=== PATIENT | female | born 1935 | race Caucasian/White ===

== ENCOUNTER 2016-11-08 08:54 | Inpatient (IN) | payer MEDICARE, BC ==
[2016-11-08] MEDS ORDERED: Tuberculin, PPD 5 Units/0.1 ML 1 ML MDV IDERM ONE (10:09)
[2016-11-11] MEDS ORDERED: Ibuprofen 400 MG Tab PO PRN (15:13)
[2016-11-11] MEDS ORDERED: Polyvinyl Alcohol 1.4% Ophth Soln 15 ML Bottle EYEBOTH PRN (15:17)
--- NOTE | 2016-11-11 15:23 | PCM.HP ---
H&P History of Present Illness - General Date of Service: 11/11/16 Admit Problem/Dx: Admission Diagnosis/Problem Admission Diagnosis/Problem Weakness Right kne arthroplasty. Post op Swing bed admission. Source of Information: Patient History Limitations: Reports: No limitations - History of Present Illness Initial Comments - Free Text/Narative: This is a a pleasant 81yo F here for swing bed admission for post right knee arthroplasty. Patient has been doing very well and has no concerns. Denies any concerns of wound healing or physical rehabilitation. Location: Reports: lower extremity, right Worsens with: Reports: Movement Associated Symptoms: Reports: denies other symptoms Right Knee Pain Score (Numeric/FACES): 4 - Related Data Allergies/Adverse Reactions: Allergies Allergy/AdvReac Type Severity Reaction Status Date / Time No Known Allergies Allergy Verified 11/11/16 16:15 Home Medications: Home Meds Acetaminophen [Tylenol Extra Strength] 500 mg PO QID 10/11/16 [History] Cholecalciferol (Vitamin D3) [Vitamin D3] 2,000 unit PO DAILY 10/11/16 [History] Latanoprost [Xalatan 0.005% Ophth Soln] 1 drop EYEBOTH BEDTIME 10/11/16 [History ] Lisinopril/Hydrochlorothiazide [Lisinopril-Hctz 20-12.5 mg Tab] 1 each PO DAILY 10/11/16 [History] Loratadine [Claritin] 10 mg PO BID 10/11/16 [History] Mirabegron [Myrbetriq] 50 mg PO DAILY 10/11/16 [History] [place]-3/DHA/Epa/Fish Oil [[place]-3 Fish Oil 1,000 MG Sfgl] 1,000 mg PO DAILY 10/25 [History] Phytonadione [Vitamin K] 100 mcg PO ASDIRECTED 10/11/16 [History] Simvastatin [Zocor] 40 mg PO BEDTIME 10/11/16 [History] Turmeric Root Extract [Turmeric] 500 mg PO DAILY 10/11/16 [History] Past Medical History HEENT History: Reports: Glaucoma, Hard of hearing, Impaired vision Cardiovascular History: Reports: Hypertension Respiratory History: Reports: None Gastrointestinal History: Reports: None Genitourinary History: Reports: Urinary incontinence Other OB/BYN History: parity: 3, gravity: 3. vaginal deliveries Musculoskeletal History: Reports: Back pain, chronic, Osteoarthritis Neurological History: Reports: None Endocrine/Metabolic History: Reports: None Oncologic (Cancer) History: Reports: None - Past Surgical History Other Musculoskeletal Surgeries/Procedures:: left knee TKR. right knee pain Social & Family History - Tobacco Use Second Hand Smoke Exposure: No - Recreational Drug Use Recreational Drug Use: No H&P Review of Systems - Review of Systems: Review Of Systems: See Below General: Reports: no symptoms HEENT: Reports: no symptoms Pulmonary: Reports: No Symptoms Cardiovascular: Reports: no symptoms Gastrointestinal: Reports: No symptoms Genitourinary: Reports: no symptoms Musculoskeletal: Reports: joint pain Skin: Reports: no symptoms Psychiatric: Reports: no symptoms Exam - Exam Exam: See Below - Exam General: alert, oriented HEENT: PERRLA, Conjunctiva clear Neck: supple, trachea midline Lungs: Clear to auscultation, Normal respiratory effort Cardiovascular: regular rate, regular rhythm Abdomen: normal bowel sounds, soft Extremities: normal inspection, other (right knee tenderness post op baseline) *Q Meaningful Use (ADM) - VTE *Q VTE Criteria *Q: - Stroke *Q Stroke Criteria *Q: - AMI *Q AMI Criteria *Q: - Problem List (1) History of arthroplasty of right knee SNOMED Code(s): 282065807, 578625050 ICD Code: Z96.651 - PRESENCE OF RIGHT ARTIFICIAL KNEE JOINT Status: Acute Priority: High Current Visit: Yes Problem List Initiated/Reviewed/Updated: Yes Orders Last 24hrs: Active Orders 24 hr Category Date Time Status Acetaminophen [Tylenol] Med 11/11/16 15:11 Active 325 - 650 mg PO Q4H PRN Aspirin [Halfprin] Med 11/12/16 08:00 Active 162 mg PO DAILY Cholecalciferol (Vitamin D3) [Vitamin D3] Med 11/12/16 08:00 Active 2,000 unit PO DAILY Docusate Sodium [Colace] Med 11/11/16 20:00 Active 200 mg PO BID Fish Oil/[place]-3 Fatty Acids [Fish Oil] Med 11/12/16 08:00 Active 1 gm PO DAILY Hydrochlorothiazide Med 11/12/16 08:00 Active 12.5 mg PO DAILY Ibuprofen [Motrin] Med 11/11/16 15:13 Active 400 mg PO Q8H PRN Latanoprost [Xalatan 0.005% Ophth Soln] Med 11/11/16 20:00 Active 0 - 1 ml EYEBOTH BEDTIME Lisinopril [Prinivil] Med 11/12/16 08:00 Active 20 mg PO DAILY Pantoprazole [ProTONIX] Med 11/12/16 08:00 Active 40 mg PO DAILY Phytonadione [Vitamin K] Med 11/12/16 08:00 Active 100 mcg PO DAILY Polyethylene Glycol 3350 [MiraLAX] Med 11/12/16 08:00 Active 17 gm PO DAILY Polyvinyl Alcohol [LiquiTears 1.4% Ophth Soln] Med 11/11/16 15:17 Active 0 - 1 ml EYEBOTH Q4H PRN Sennosides [Senna] Med 11/11/16 20:00 Active 8.6 mg PO BID Simvastatin [Zocor] Med 11/11/16 20:00 Active 40 mg PO BEDTIME traMADol [Ultram] Med 11/11/16 15:19 Active 50 mg PO Q6H PRN Medication Orders Acetaminophen (Tylenol) 325 - 650 mg PO Q4H PRN PRN Reason: MILD PAIN Artificial Tears (Liquitears 1.4% Ophth Soln) 0 - 1 ml EYEBOTH Q4H PRN PRN Reason: DRY EYES Aspirin (Halfprin) 162 mg PO DAILY [facility] Cholecalciferol (Vitamin D3) 2,000 unit PO DAILY [facility] Docusate Sodium (Colace) 200 mg PO BID [facility] Fish Oil (Fish Oil) 1 gm PO DAILY [facility] Hydrochlorothiazide (Hydrochlorothiazide) 12.5 mg PO DAILY [facility] Ibuprofen (Motrin) 400 mg PO Q8H PRN PRN Reason: MODERATE PAIN Latanoprost (Xalatan 0.005% Ophth Soln) 0 - 1 ml EYEBOTH BEDTIME [facility] Lisinopril (Prinivil) 20 mg PO DAILY [facility] Pantoprazole Sodium (Protonix) 40 mg PO DAILY [facility] Phytonadione (Vitamin K) 100 mcg PO DAILY [facility] Polyethylene Glycol (Miralax) 17 gm PO DAILY [facility] Senna (Senna) 8.6 mg PO BID [facility] Simvastatin (Zocor) 40 mg PO BEDTIME [facility] Tramadol HCl (Ultram) 50 mg PO Q6H PRN PRN Reason: MODERATE PAIN Assessment/Plan Comment:: Patient admitted to swing bed for post op right knee arthroplasty rehabilitation and management.
[2016-11-11] MEDS: Acetaminophen 325 MG Tab PO PRN (18:10)
[2016-11-11] MEDS: Sennosides 8.6 MG Tab PO SCH (19:46)
[2016-11-11] MEDS: Docusate Sodium 100 MG Cap PO SCH (19:46)
[2016-11-11] MEDS: Simvastatin 40 MG Tab PO SCH (19:47)
[2016-11-11] MEDS: Latanoprost 0.005% Ophth Soln 2.5 ML Bottle EYEBOTH SCH (19:47)
[2016-11-11] MEDS: traMADol 50 MG Tab PO PRN (22:05)
[2016-11-12] MEDS: Cholecalciferol (Vitamin D3) 2,000 Unit Cap PO SCH (07:51)
[2016-11-12] MEDS: Docusate Sodium 100 MG Cap PO SCH ×2 (07:51→20:04)
[2016-11-12] MEDS: Aspirin 81 MG Tab.EC PO SCH (07:51)
[2016-11-12] MEDS: Lisinopril 20 MG Tab PO SCH (07:52)
[2016-11-12] MEDS: Hydrochlorothiazide 12.5 MG Cap PO SCH (07:52)
[2016-11-12] MEDS: Sennosides 8.6 MG Tab PO SCH ×2 (07:52→20:04)
[2016-11-12] MEDS: Pantoprazole 40 MG Tab.CR PO SCH (07:52)
[2016-11-12] MEDS: Polyethylene Glycol 3350 Powder 17 GM Packet PO SCH (07:53)
[2016-11-12] MEDS: Fish Oil/Omega-3 Fatty Acids 1 Gm Cap PO SCH (07:57)
[2016-11-12] MEDS ORDERED: Phytonadione 100 MCG Tab PO SCH (08:00)
[2016-11-12] MEDS: traMADol 50 MG Tab PO PRN ×3 (08:02→20:03)
--- NOTE | 2016-11-12 11:39 | US ---
DATE OF SERVICE: 11/12/2016 CLINICAL DATA: Thyroid asymmetry. THYROID ULTRASOUND No priors. Real-time examination fo the thyroid was performed. The right lobe measures 5.0 x 1.8 x 1.9 cm. The left lobe measures 4.6 x 1.2 x 1.2 cm. Both lobes have markedly heterogeneous echotexture, right greater than left, and contain multiple heterogeneous hypoechoic nodules. The findings are consistent with a multinodular goiter. No other significant findings. [id number] [facility]
[2016-11-12] MEDS: Latanoprost 0.005% Ophth Soln 2.5 ML Bottle EYEBOTH SCH (19:47)
[2016-11-12] MEDS: Simvastatin 40 MG Tab PO SCH (20:04)
[2016-11-13] MEDS: traMADol 50 MG Tab PO PRN ×3 (02:01→16:07)
[2016-11-13] MEDS: Fish Oil/Omega-3 Fatty Acids 1 Gm Cap PO SCH (07:58)
[2016-11-13] MEDS: Pantoprazole 40 MG Tab.CR PO SCH (07:59)
[2016-11-13] MEDS: Polyethylene Glycol 3350 Powder 17 GM Packet PO SCH (07:59)
[2016-11-13] MEDS: Cholecalciferol (Vitamin D3) 2,000 Unit Cap PO SCH (07:59)
[2016-11-13] MEDS: Hydrochlorothiazide 12.5 MG Cap PO SCH (07:59)
[2016-11-13] MEDS: Sennosides 8.6 MG Tab PO SCH ×2 (07:59→19:51)
[2016-11-13] MEDS: Aspirin 81 MG Tab.EC PO SCH (07:59)
[2016-11-13] MEDS: Lisinopril 20 MG Tab PO SCH (07:59)
[2016-11-13] MEDS: Docusate Sodium 100 MG Cap PO SCH ×2 (08:00→19:51)
[2016-11-13] MEDS: Simvastatin 40 MG Tab PO SCH (19:51)
[2016-11-13] MEDS: Latanoprost 0.005% Ophth Soln 2.5 ML Bottle EYEBOTH SCH (19:52)
[2016-11-14] MEDS: traMADol 50 MG Tab PO PRN ×3 (03:22→14:24)
[2016-11-14] MEDS: Aspirin 81 MG Tab.EC PO SCH (08:40)
[2016-11-14] MEDS: Docusate Sodium 100 MG Cap PO SCH ×2 (08:40→20:47)
[2016-11-14] MEDS: Pantoprazole 40 MG Tab.CR PO SCH (08:41)
[2016-11-14] MEDS: Hydrochlorothiazide 12.5 MG Cap PO SCH (08:41)
[2016-11-14] MEDS: Fish Oil/Omega-3 Fatty Acids 1 Gm Cap PO SCH (08:41)
[2016-11-14] MEDS: Lisinopril 20 MG Tab PO SCH (08:42)
[2016-11-14] MEDS: Cholecalciferol (Vitamin D3) 2,000 Unit Cap PO SCH (08:42)
[2016-11-14] MEDS: Sennosides 8.6 MG Tab PO SCH ×2 (08:45→20:47)
[2016-11-14] MEDS: Polyethylene Glycol 3350 Powder 17 GM Packet PO SCH (08:46)
[2016-11-14] MEDS: Acetaminophen 325 MG Tab PO PRN ×2 (16:06→20:50)
[2016-11-14] MEDS: Simvastatin 40 MG Tab PO SCH (20:47)
[2016-11-14] MEDS: Latanoprost 0.005% Ophth Soln 2.5 ML Bottle EYEBOTH SCH (20:51)
[2016-11-15] MEDS: traMADol 50 MG Tab PO PRN ×2 (02:32→20:19)
[2016-11-15] MEDS: Fish Oil/Omega-3 Fatty Acids 1 Gm Cap PO SCH (08:19)
[2016-11-15] MEDS: Pantoprazole 40 MG Tab.CR PO SCH (08:20)
[2016-11-15] MEDS: Sennosides 8.6 MG Tab PO SCH ×2 (08:20→20:20)
[2016-11-15] MEDS: Docusate Sodium 100 MG Cap PO SCH ×2 (08:20→20:20)
[2016-11-15] MEDS: Hydrochlorothiazide 12.5 MG Cap PO SCH (08:21)
[2016-11-15] MEDS: Aspirin 81 MG Tab.EC PO SCH (08:21)
[2016-11-15] MEDS: Cholecalciferol (Vitamin D3) 2,000 Unit Cap PO SCH (08:22)
[2016-11-15] MEDS: Lisinopril 20 MG Tab PO SCH (08:22)
[2016-11-15] MEDS: Polyethylene Glycol 3350 Powder 17 GM Packet PO SCH (08:27)
[2016-11-15] MEDS: Acetaminophen 325 MG Tab PO PRN (08:32)
[2016-11-15] MEDS ORDERED: Tuberculin, PPD 5 Units/0.1 ML 1 ML MDV IDERM SCH (10:00)
[2016-11-15] MEDS ORDERED: Tuberculin, PPD 5 Units/0.1 ML 1 ML MDV IDERM ONE (10:00)
[2016-11-15] MEDS: Simvastatin 40 MG Tab PO SCH (20:18)
[2016-11-16] MEDS: Latanoprost 0.005% Ophth Soln 2.5 ML Bottle EYEBOTH SCH ×2 (07:15→20:20)
[2016-11-16] MEDS: Aspirin 81 MG Tab.EC PO SCH (08:05)
[2016-11-16] MEDS: Docusate Sodium 100 MG Cap PO SCH ×2 (08:05→20:21)
[2016-11-16] MEDS: Fish Oil/Omega-3 Fatty Acids 1 Gm Cap PO SCH (08:05)
[2016-11-16] MEDS: Lisinopril 20 MG Tab PO SCH (08:06)
[2016-11-16] MEDS: Hydrochlorothiazide 12.5 MG Cap PO SCH (08:06)
[2016-11-16] MEDS: Pantoprazole 40 MG Tab.CR PO SCH (08:07)
[2016-11-16] MEDS: Sennosides 8.6 MG Tab PO SCH ×2 (08:07→20:21)
[2016-11-16] MEDS: Cholecalciferol (Vitamin D3) 2,000 Unit Cap PO SCH (08:08)
[2016-11-16] MEDS: Polyethylene Glycol 3350 Powder 17 GM Packet PO SCH (08:11)
[2016-11-16] MEDS: Acetaminophen 325 MG Tab PO PRN ×2 (08:16→16:42)
[2016-11-16] MEDS: traMADol 50 MG Tab PO PRN (20:20)
[2016-11-16] MEDS: Simvastatin 40 MG Tab PO SCH (20:21)
[2016-11-17] MEDS: Aspirin 81 MG Tab.EC PO SCH (07:45)
[2016-11-17] MEDS: Polyethylene Glycol 3350 Powder 17 GM Packet PO SCH (07:45)
[2016-11-17] MEDS: Pantoprazole 40 MG Tab.CR PO SCH (07:45)
[2016-11-17] MEDS: Cholecalciferol (Vitamin D3) 2,000 Unit Cap PO SCH (07:45)
[2016-11-17] MEDS: Sennosides 8.6 MG Tab PO SCH ×2 (07:45→20:26)
[2016-11-17] MEDS: Docusate Sodium 100 MG Cap PO SCH ×2 (07:45→20:26)
[2016-11-17] MEDS: Fish Oil/Omega-3 Fatty Acids 1 Gm Cap PO SCH (07:46)
[2016-11-17] MEDS: Lisinopril 20 MG Tab PO SCH (07:46)
[2016-11-17] MEDS: Hydrochlorothiazide 12.5 MG Cap PO SCH (07:46)
[2016-11-17] MEDS: traMADol 50 MG Tab PO PRN ×2 (15:25→20:32)
[2016-11-17] MEDS: Latanoprost 0.005% Ophth Soln 2.5 ML Bottle EYEBOTH SCH (20:31)
[2016-11-17] MEDS: Simvastatin 40 MG Tab PO SCH (20:32)
[2016-11-18] MEDS: Polyethylene Glycol 3350 Powder 17 GM Packet PO SCH (07:54)
[2016-11-18] MEDS: Fish Oil/Omega-3 Fatty Acids 1 Gm Cap PO SCH (07:55)
[2016-11-18] MEDS: Docusate Sodium 100 MG Cap PO SCH ×2 (07:55→20:26)
[2016-11-18] MEDS: Hydrochlorothiazide 12.5 MG Cap PO SCH (07:55)
[2016-11-18] MEDS: Lisinopril 20 MG Tab PO SCH (07:55)
[2016-11-18] MEDS: Pantoprazole 40 MG Tab.CR PO SCH (07:55)
[2016-11-18] MEDS: Sennosides 8.6 MG Tab PO SCH ×2 (07:55→20:26)
[2016-11-18] MEDS: Aspirin 81 MG Tab.EC PO SCH (07:55)
[2016-11-18] MEDS: Cholecalciferol (Vitamin D3) 2,000 Unit Cap PO SCH (07:55)
[2016-11-18] MEDS: traMADol 50 MG Tab PO PRN ×2 (10:11→20:25)
--- NOTE | 2016-11-18 13:49 | PCM.PN ---
- General Info Date of Service: 11/18/16 Subjective Update: Patient has been doing well. She requests that her ortho appointment be scheduled later and would like her ziggy checked and removed here in swingbed. Patient states she improves gradually daily with improving strength and mobility. Functional Status: Reports: pain controlled, tolerating diet, ambulating - Review of Systems General: Reports: Weakness HEENT: Reports: no symptoms Pulmonary: Reports: no symptoms Cardiovascular: Reports: No Symptoms Gastrointestinal: Reports: No symptoms Genitourinary: Reports: no symptoms Musculoskeletal: Reports: leg pain, joint pain Skin: Reports: no symptoms Neurological: Reports: No Symptoms Psychiatric: Reports: no symptoms - Patient Data Vitals - most recent: Last Vital Signs Temp 36.6 C 11/18/16 08:00 Pulse 77 11/18/16 08:00 Resp 18 11/18/16 08:00 BP 137/63 11/18/16 08:00 Pulse Ox 97 11/18/16 08:00 Weight - most recent: 82.1 kg Med Orders - Current: Current Medications Acetaminophen (Tylenol) 325 - 650 mg PO Q4H PRN PRN Reason: MILD PAIN Last Admin: 11/16/16 16:42 Dose: 650 mg Artificial Tears (Liquitears 1.4% Ophth Soln) 0 - 1 ml EYEBOTH Q4H PRN PRN Reason: DRY EYES Aspirin (Halfprin) 162 mg PO DAILY [facility] Last Admin: 11/18/16 07:55 Dose: 162 mg Cholecalciferol (Vitamin D3) 2,000 unit PO DAILY [facility] Last Admin: 11/18/16 07:55 Dose: 2,000 unit Docusate Sodium (Colace) 200 mg PO BID [facility]US Last Admin: 11/18/16 07:55 Dose: 200 mg Fish Oil (Fish Oil) 1 gm PO DAILY [facility]ESUS Last Admin: 11/18/16 07:55 Dose: 1 gm Hydrochlorothiazide (Hydrochlorothiazide) 12.5 mg PO DAILY [facility] Last Admin: 11/18/16 07:55 Dose: 12.5 mg Ibuprofen (Motrin) 400 mg PO Q8H PRN PRN Reason: MODERATE PAIN Latanoprost (Xalatan 0.005% Ophth Soln) 0 - 1 ml EYEBOTH BEDTIME [facility] Last Admin: 11/17/16 20:31 Dose: 1 drop Lisinopril (Prinivil) 20 mg PO DAILY [facility] Last Admin: 11/18/16 07:55 Dose: 20 mg Pantoprazole Sodium (Protonix) 40 mg PO DAILY [facility] Last Admin: 11/18/16 07:55 Dose: 40 mg Polyethylene Glycol (Miralax) 17 gm PO DAILY [facility] Last Admin: 11/18/16 07:54 Dose: 17 gm Senna (Senna) 8.6 mg PO BID [facility] Last Admin: 11/18/16 07:55 Dose: 8.6 mg Simvastatin (Zocor) 40 mg PO BEDTIME [facility] Last Admin: 11/17/16 20:32 Dose: 40 mg Tramadol HCl (Ultram) 50 mg PO Q6H PRN PRN Reason: MODERATE PAIN Last Admin: 11/18/16 10:11 Dose: 50 mg Discontinued Medications Phytonadione (Vitamin K) 100 mcg PO DAILY [facility] Last Admin: 11/12/16 08:04 Dose: Not Given Tuberculin PPD (Aplisol) 5 unit IDERM ONETIME ONE Stop: 11/15/16 10:01 Tuberculin PPD (Aplisol) 5 unit IDERM ASDIRECTED [facility] Stop: 11/15/16 11:00 Last Admin: 11/15/16 10:59 Dose: 5 unit - Exam General: alert, oriented, cooperative HEENT: Pupils equal, Pupils reactive, EOMI Lungs: Clear to auscultation, Normal respiratory effort Cardiovascular: Regular Rate, Regular Rhythm Abdomen: bowel sounds present, soft, no tenderness Back Exam: normal inspection, full range of motion Extremities: edema (1+) Peripheral Pulses: 2+: dorsalis pedis (L), dorsalis pedis (R) Skin: warm, dry, intact Wound/Incisions: healing well, dressing dry and intact - Problem List & Annotations (1) History of arthroplasty of right knee SNOMED Code(s): 661992358, 935921581 Code(s): Z96.651 - PRESENCE OF RIGHT ARTIFICIAL KNEE JOINT Status: Acute Priority: High Current Visit: Yes - Problem List Review Problem List Initiated/Reviewed/Updated: Yes - Plan Plan:: Patient admitted to swing bed for post op right knee arthroplasty rehabilitation and management. 11/18/16 Patient to continue with PT/OT. Ortho ok for ziggy to be removed here in swingbed. F/u on 18th with Jose A. Patient agreeable with plan of care.
[2016-11-18] MEDS: Latanoprost 0.005% Ophth Soln 2.5 ML Bottle EYEBOTH SCH (20:25)
[2016-11-18] MEDS: Simvastatin 40 MG Tab PO SCH (20:25)
[2016-11-19] MEDS: Acetaminophen 325 MG Tab PO PRN (05:52)
[2016-11-19] MEDS: Polyethylene Glycol 3350 Powder 17 GM Packet PO SCH (07:59)
[2016-11-19] MEDS: Docusate Sodium 100 MG Cap PO SCH ×2 (07:59→20:50)
[2016-11-19] MEDS: Pantoprazole 40 MG Tab.CR PO SCH (08:00)
[2016-11-19] MEDS: Hydrochlorothiazide 12.5 MG Cap PO SCH (08:00)
[2016-11-19] MEDS: Fish Oil/Omega-3 Fatty Acids 1 Gm Cap PO SCH (08:00)
[2016-11-19] MEDS: Cholecalciferol (Vitamin D3) 2,000 Unit Cap PO SCH (08:00)
[2016-11-19] MEDS: Sennosides 8.6 MG Tab PO SCH ×2 (08:00→20:50)
[2016-11-19] MEDS: Lisinopril 20 MG Tab PO SCH (08:00)
[2016-11-19] MEDS: Aspirin 81 MG Tab.EC PO SCH (08:00)
[2016-11-19] MEDS: traMADol 50 MG Tab PO PRN ×2 (16:41→22:41)
[2016-11-19] MEDS: Simvastatin 40 MG Tab PO SCH (20:50)
[2016-11-19] MEDS: Latanoprost 0.005% Ophth Soln 2.5 ML Bottle EYEBOTH SCH (20:51)
[2016-11-20] MEDS: traMADol 50 MG Tab PO PRN ×2 (04:24→20:07)
[2016-11-20] MEDS: Docusate Sodium 100 MG Cap PO SCH ×2 (08:19→20:08)
[2016-11-20] MEDS: Aspirin 81 MG Tab.EC PO SCH (08:22)
[2016-11-20] MEDS: Fish Oil/Omega-3 Fatty Acids 1 Gm Cap PO SCH (08:22)
[2016-11-20] MEDS: Polyethylene Glycol 3350 Powder 17 GM Packet PO SCH (08:23)
[2016-11-20] MEDS: Hydrochlorothiazide 12.5 MG Cap PO SCH (08:23)
[2016-11-20] MEDS: Sennosides 8.6 MG Tab PO SCH ×2 (08:24→20:09)
[2016-11-20] MEDS: Lisinopril 20 MG Tab PO SCH (08:24)
[2016-11-20] MEDS: Pantoprazole 40 MG Tab.CR PO SCH (08:24)
[2016-11-20] MEDS: Cholecalciferol (Vitamin D3) 2,000 Unit Cap PO SCH (08:25)
[2016-11-20] MEDS: Acetaminophen 325 MG Tab PO PRN (11:54)
[2016-11-20] MEDS: Latanoprost 0.005% Ophth Soln 2.5 ML Bottle EYEBOTH SCH (20:09)
[2016-11-20] MEDS: Simvastatin 40 MG Tab PO SCH (20:09)
[2016-11-21] MEDS: Polyethylene Glycol 3350 Powder 17 GM Packet PO SCH (08:17)
[2016-11-21] MEDS: Cholecalciferol (Vitamin D3) 2,000 Unit Cap PO SCH (08:17)
[2016-11-21] MEDS: Fish Oil/Omega-3 Fatty Acids 1 Gm Cap PO SCH (08:18)
[2016-11-21] MEDS: Docusate Sodium 100 MG Cap PO SCH ×2 (08:20→21:27)
[2016-11-21] MEDS: Aspirin 81 MG Tab.EC PO SCH (08:20)
[2016-11-21] MEDS: Hydrochlorothiazide 12.5 MG Cap PO SCH (08:20)
[2016-11-21] MEDS: Lisinopril 20 MG Tab PO SCH (08:21)
[2016-11-21] MEDS: Pantoprazole 40 MG Tab.CR PO SCH (08:21)
[2016-11-21] MEDS: Sennosides 8.6 MG Tab PO SCH ×2 (08:21→21:26)
[2016-11-21] MEDS: traMADol 50 MG Tab PO PRN (08:29)
[2016-11-21] MEDS: Acetaminophen 325 MG Tab PO PRN ×2 (15:09→21:24)
[2016-11-21] MEDS: Simvastatin 40 MG Tab PO SCH (21:23)
[2016-11-21] MEDS: Latanoprost 0.005% Ophth Soln 2.5 ML Bottle EYEBOTH SCH ×2 (21:26→21:50)
[2016-11-22] MEDS: Cholecalciferol (Vitamin D3) 2,000 Unit Cap PO SCH (07:48)
[2016-11-22] MEDS: Pantoprazole 40 MG Tab.CR PO SCH (07:48)
[2016-11-22] MEDS: Fish Oil/Omega-3 Fatty Acids 1 Gm Cap PO SCH (07:48)
[2016-11-22] MEDS: Hydrochlorothiazide 12.5 MG Cap PO SCH (07:48)
[2016-11-22] MEDS: Lisinopril 20 MG Tab PO SCH (07:48)
[2016-11-22] MEDS: Aspirin 81 MG Tab.EC PO SCH (07:48)
[2016-11-22] MEDS: Polyethylene Glycol 3350 Powder 17 GM Packet PO SCH (07:49)
[2016-11-22] MEDS: Sennosides 8.6 MG Tab PO SCH (07:49)
[2016-11-22] MEDS: Docusate Sodium 100 MG Cap PO SCH (07:49)
[2016-11-22] MEDS: traMADol 50 MG Tab PO PRN (12:27)
--- NOTE | 2016-11-22 17:55 | PCM.DCSUM1 ---
Discharge Summary - Discharge Data Discharge Date: 11/22/16 Discharge Disposition: Home, Self-Care 01 Condition: Good - Discharge Diagnosis/Problem(s) (1) History of arthroplasty of right knee SNOMED Code(s): 291032204, 838069937 ICD Code: Z96.651 - PRESENCE OF RIGHT ARTIFICIAL KNEE JOINT Status: Acute Priority: High - Patient Summary/Data Consults: Consultations 11/08/16 10:09 Consult to Spooler Operator Automatic [CONS] Routine Comment: Physician Instructions: Quantity: OT Evaluation and Treatment [CONS] Routine Please Evaluate and Treat. OT Reason for Consult: ADL's This query below is only for informational purposes and is not editable. Admission Diagnosis/Problem: Weakness PT Evaluation and Treatment [CONS] Routine Please Evaluate and Treat. PT Reason for Consult: Strengthening This query below is only for informational purposes and is not editable. Admission Diagnosis/Problem: Weakness - Patient Instructions Diet: Usual Diet as Tolerated Activity: As Tolerated Driving: Do Not Drive Wound/Incision Care: Keep Operative Site/Wound Site Clean and Dry - Discharge Plan Home Medications: Home Meds Acetaminophen [Tylenol Extra Strength] 500 mg PO QID 10/11/16 [History] Cholecalciferol (Vitamin D3) [Vitamin D3] 2,000 unit PO DAILY 10/11/16 [History] Latanoprost [Xalatan 0.005% Ophth Soln] 1 drop EYEBOTH BEDTIME 10/11/16 [History ] Lisinopril/Hydrochlorothiazide [Lisinopril-Hctz 20-12.5 mg Tab] 1 each PO DAILY 10/11/16 [History] Loratadine [Claritin] 10 mg PO BID 10/11/16 [History] Mirabegron [Myrbetriq] 50 mg PO DAILY 10/11/16 [History] [place]-3/DHA/Epa/Fish Oil [[place]-3 Fish Oil 1,000 MG Sfgl] 1,000 mg PO DAILY 10/25 [History] Phytonadione [Vitamin K] 100 mcg PO ASDIRECTED 10/11/16 [History] Simvastatin [Zocor] 40 mg PO BEDTIME 10/11/16 [History] Turmeric Root Extract [Turmeric] 500 mg PO DAILY 10/11/16 [History] Patient Handouts: Total Knee Replacement, Care After, [id number] - Discharge Summary/Plan Comment Discharge Summary/Plan Comment: Patient discharged home. Follow up evaluation with ortho and pcp as planned. Patient understands close f/u as needed and scheduled f/u. - Patient Data Vitals - Most Recent: Last Vital Signs Temp 36.6 C 11/22/16 08:00 Pulse 80 11/22/16 08:00 Resp 18 11/22/16 08:00 BP 151/55 H 11/22/16 08:00 Pulse Ox 98 11/22/16 08:00 Weight - Most Recent: 82.1 kg Med Orders - Current: Current Medications Discontinued Medications Acetaminophen (Tylenol) 325 - 650 mg PO Q4H PRN PRN Reason: MILD PAIN Last Admin: 11/21/16 21:24 Dose: 650 mg Artificial Tears (Liquitears 1.4% Ophth Soln) 0 - 1 ml EYEBOTH Q4H PRN PRN Reason: DRY EYES Aspirin (Halfprin) 162 mg PO DAILY [facility] Last Admin: 11/22/16 07:48 Dose: 162 mg Cholecalciferol (Vitamin D3) 2,000 unit PO DAILY [facility] Last Admin: 11/22/16 07:48 Dose: 2,000 unit Docusate Sodium (Colace) 200 mg PO BID [facility] Last Admin: 11/22/16 07:49 Dose: 200 mg Fish Oil (Fish Oil) 1 gm PO DAILY [facility] Last Admin: 11/22/16 07:48 Dose: 1 gm Hydrochlorothiazide (Hydrochlorothiazide) 12.5 mg PO DAILY [facility] Last Admin: 11/22/16 07:48 Dose: 12.5 mg Ibuprofen (Motrin) 400 mg PO Q8H PRN PRN Reason: MODERATE PAIN Latanoprost (Xalatan 0.005% Ophth Soln) 0 - 1 ml EYEBOTH BEDTIME [facility] Last Admin: 11/21/16 21:50 Dose: 1 drop Lisinopril (Prinivil) 20 mg PO DAILY [facility] Last Admin: 11/22/16 07:48 Dose: 20 mg Pantoprazole Sodium (Protonix) 40 mg PO DAILY [facility] Last Admin: 11/22/16 07:48 Dose: 40 mg Phytonadione (Vitamin K) 100 mcg PO DAILY [facility] Last Admin: 11/12/16 08:04 Dose: Not Given Polyethylene Glycol (Miralax) 17 gm PO DAILY [facility] Last Admin: 11/22/16 07:49 Dose: 17 gm Senna (Senna) 8.6 mg PO BID [facility] Last Admin: 11/22/16 07:49 Dose: 8.6 mg Simvastatin (Zocor) 40 mg PO BEDTIME [facility] Last Admin: 11/21/16 21:23 Dose: 40 mg Tramadol HCl (Ultram) 50 mg PO Q6H PRN PRN Reason: MODERATE PAIN Last Admin: 11/22/16 12:27 Dose: 50 mg Tuberculin PPD (Aplisol) 5 unit IDERM ONETIME ONE Stop: 11/15/16 10:01 Tuberculin PPD (Aplisol) 5 unit IDERM ASDIRECTED [facility] Stop: 11/15/16 11:00 Last Admin: 11/15/16 10:59 Dose: 5 unit *Q Meaningful Use (DIS) - VTE *Q VTE Criteria *Q: - Stroke *Q Stroke Criteria *Q: - AMI *Q AMI Criteria *Q:
== END 2016-11-22 13:10 | disposition home or self-care (01) | DRG 561 ==
LOC: LB.MS 11-11 14:32 → UNDOADMIN 11-11 14:32 → LB.MS 11-11 16:45
PROVIDERS: ADMIT Family Medicine; ATTEND Family Medicine
DX: Z47.1 Aftercare following joint replacement surgery (principal); R53.1 Weakness; Z96.653 Presence of artificial knee joint, bilateral; Z98.890 Other specified postprocedural states; I10 Essential (primary) hypertension; H40.9 Unspecified glaucoma; M54.9 Dorsalgia, unspecified; G89.29 Other chronic pain; M19.90 Unspecified osteoarthritis, unspecified site; H91.90 Unspecified hearing loss, unspecified ear; H54.7 Unspecified visual loss; E07.9 Disorder of thyroid, unspecified
CPT/HCPCS: 76536-50; 86580; 97110-GP; 97116-GP; 97161-GP; 97165-GO; 97530-GO; 97535-GO; A9270-GY

== ENCOUNTER 2017-07-23 09:02 | Inpatient (IN) | payer MEDICARE, BC ==
--- NOTE | 2017-07-23 17:00 | PCM.HP ---
H&P History of Present Illness - General Date of Service: 07/23/17 Admit Problem/Dx: Post left hip, left ribs, left arm and left forearm fractures. Source of Information: Patient, Old Records, RN Notes Reviewed History Limitations: Reports: No Limitations - History of Present Illness Initial Comments - Free Text/Narative: This is a pleasant 82yo F here on her birthday from [place]. Patient was in subacute rehab and has decided to travel home for the same services closer to her family. Patient denies any changes to her management plan. She is restricted on use of her left arm until cleared. She has been weight-bearing with her left hip with assistance at all times for transfer and ambulation. She has worked with PT/OT since her surgery. Her pain is controlled and she has brought her Butrans TD with her as well as her other medications. Patient denies any concerns today. Location: Reports: Upper Extremity, Left, Lower Extremity, Left Associated Symptoms: Reports: No Other Symptoms Left Shoulder Pain Score (Numeric/FACES): 0 back Pain Score (Numeric/FACES): 4 - Related Data Allergies/Adverse Reactions: Allergies Allergy/AdvReac Type Severity Reaction Status Date / Time No Known Allergies Allergy Verified 07/23/17 17:00 Home Medications: Home Meds Acetaminophen [Tylenol Extra Strength] 500 mg PO QID 10/11/16 [History] Latanoprost [Xalatan 0.005% Ophth Soln] 1 drop EYEBOTH BEDTIME 10/11/16 [History ] Simvastatin [Zocor] 40 mg PO BEDTIME 10/11/16 [History] Ascorbic Acid [Vitamin C] 250 mg PO BIDMEALS 07/23/17 [History] Bisacodyl 10 mg RC DAILY PRN 07/23/17 [History] Buprenorphine [Butrans] 1 each TD WEEKLY 07/23/17 [History] Calcitonin ([place]) [Miacalcin Nasal [place]ard] 1 spray NS DAILY 07/23/17 [History] Calcium Carbonate/Vitamin D3 [Calcium 600 + Vit D 200] 1 each PO BIDMEALS [History] Docusate Sodium 100 mg PO BID 07/23/17 [History] Epoetin Nicholas [Procrit] 1 ml SUBCUT WEEKLY 07/23/17 [History] Ferrous Sulfate [Feosol] 325 mg PO BID 07/23/17 [History] Hydrocodone/Acetaminophen [Hydrocodon-Acetaminophen 5-325] 2 each PO BID [History] Hydrocodone/Acetaminophen [[place] 5-325 Tablet] 1 each PO Q4H PRN 07/23/17 [ History] Lansoprazole [Prevacid] 15 mg PO DAILY 07/23/17 [History] Lisinopril [Zestril] 20 mg PO DAILY 07/23/17 [History] Magnesium Hydroxide [Milk of Magnesia] 30 ml PO DAILY PRN 07/23/17 [History] Polyethylene Glycol 3350 [Miralax] 17 gm PO DAILY PRN 07/23/17 [History] Sennosides [Senna] 2 tab PO DAILY 07/23/17 [History] amLODIPine [Norvasc] 5 mg PO DAILY 07/23/17 [History] Past Medical History HEENT History: Reports: Glaucoma, Hard of Hearing, Impaired Vision Cardiovascular History: Reports: Hypertension Respiratory History: Reports: None Gastrointestinal History: Reports: None Genitourinary History: Reports: Urinary Incontinence Other OB/BYN History: parity: 3, gravity: 3. vaginal deliveries Musculoskeletal History: Reports: Back Pain, Chronic, Osteoarthritis Neurological History: Reports: None Endocrine/Metabolic History: Reports: None Oncologic (Cancer) History: Reports: None - Past Surgical History Other Musculoskeletal Surgeries/Procedures:: left knee TKR. right knee pain Social & Family History - Tobacco Use Second Hand Smoke Exposure: No - Recreational Drug Use Recreational Drug Use: No H&P Review of Systems - Review of Systems: Review Of Systems: See Below General: Reports: No Symptoms HEENT: Reports: No Symptoms Pulmonary: Reports: No Symptoms Cardiovascular: Reports: No Symptoms Gastrointestinal: Reports: No Symptoms Genitourinary: Reports: Frequency, Incontinence Musculoskeletal: Reports: Arm Pain, Leg Pain, Muscle Pain, Muscle Stiffness Skin: Reports: No Symptoms Psychiatric: Reports: No Symptoms Neurological: Reports: No Symptoms Exam - Exam Exam: See Below - Exam General: Alert, Oriented, Cooperative HEENT: PERRLA, Conjunctiva Clear Neck: Supple, Trachea Midline Lungs: Clear to Auscultation, Normal Respiratory Effort Cardiovascular: Regular Rate, Regular Rhythm GI/Abdominal Exam: Normal Bowel Sounds Extremities: Limited Range of Motion, Other (left arm in sling - restricted rom until cleared) Skin: Warm, Dry, Intact Neuro Extensive - Mental Status: Alert, Oriented x3 Psychiatric: Alert, Normal Affect, Normal Mood - Patient Data Result Diagrams: 07/25/17 15:40 07/25/17 15:40 *Q Meaningful Use (ADM) - VTE *Q VTE Criteria *Q: - Stroke *Q Stroke Criteria *Q: - AMI *Q AMI Criteria *Q: - Problem List (1) Hip fracture, left SNOMED Code(s): 335685321 ICD Code: S72.002A - FRACTURE OF UNSP PART OF NECK OF LEFT FEMUR, INIT Status: Acute Current Visit: Yes Qualifiers: Encounter type: subsequent encounter (2) Left humeral fracture SNOMED Code(s): 07978770 ICD Code: S42.302A - UNSP FRACTURE OF SHAFT OF HUMERUS, LEFT ARM, INIT Status: Acute Current Visit: Yes Qualifiers: Encounter type: subsequent encounter Humerus Location: proximal Fracture type: closed Fracture alignment: displaced Fracture healing: with routine healing (3) Left radial fracture SNOMED Code(s): 06491195 ICD Code: S52.92XA - UNSP FRACTURE OF LEFT FOREARM, INIT FOR CLOS FX Status : Acute Current Visit: Yes Qualifiers: Encounter type: subsequent encounter Radius location: distal Fracture type: closed Fracture morphology: unspecified fracture morphology Fracture healing: with routine healing Qualified Code(s): S52.502D - Unspecified fracture of the lower end of left radius, subsequent encounter for closed fracture with routine healing (4) Left rib fracture SNOMED Code(s): 64686925 ICD Code: S22.32XA - FRACTURE OF ONE RIB, LEFT SIDE, INIT FOR CLOS FX Status: Acute Current Visit: Yes Qualifiers: Rib fracture type: multiple ribs Fracture type: closed Fracture healing: with routine healing (5) Multiple fractures of left upper extremity and ribs SNOMED Code(s): 78257840 ICD Code: S42.302A - UNSP FRACTURE OF SHAFT OF HUMERUS, LEFT ARM, INIT; S22.42XA - MULTIPLE FRACTURES OF RIBS, LEFT SIDE, INIT FOR CLOS FX Status: Acute Current Visit: Yes Qualifiers: Encounter type: subsequent encounter Problem List Initiated/Reviewed/Updated: Yes Assessment/Plan Comment:: Plan of care for PT/OT therapy. Orthopedics f/u here in the hospital. Will plan for Jose A or Dr. Beth f/u. Medications continued. No changes at this time.
[2017-07-23] MEDS ORDERED: Tuberculin, PPD 5 Units/0.1 ML 1 ML MDV IDERM ONE (17:03)
[2017-07-23] MEDS ORDERED: Epoetin Alfa 20,000 Units/1 ML MDV SUBCUT SCH (20:30)
[2017-07-23] MEDS ORDERED: Bisacodyl 10 MG Supp RECTAL PRN (20:30)
[2017-07-23] MEDS ORDERED: Acetaminophen/HYDROcodone 325-5 MG Tab PO PRN (20:30)
[2017-07-23] MEDS ORDERED: BUPRENORPHINE TD SCH (20:30)
[2017-07-23] MEDS: Latanoprost 0.005% Ophth Soln 2.5 ML Bottle EYEBOTH SCH (22:00)
[2017-07-23] MEDS: Polyethylene Glycol 3350 Powder 17 GM Packet PO PRN (22:00)
[2017-07-24] MEDS: Acetaminophen/HYDROcodone 325-5 MG Tab PO SCH ×2 (04:43→08:51)
[2017-07-24] MEDS ORDERED: Non-Formulary Medication 1 Each (Lansoprazole [Prevacid] 15 MG) PO SCH (08:00)
[2017-07-24] MEDS: Ferrous Sulfate 325 MG Tab PO SCH ×2 (08:41→20:39)
[2017-07-24] MEDS: Ascorbic Acid 500 MG Tab PO SCH ×3 (08:41→16:51)
[2017-07-24] MEDS: Acetaminophen 500 MG Tab PO SCH ×4 (08:41→20:39)
[2017-07-24] MEDS: Sennosides 8.6 MG Tab PO SCH (08:41)
[2017-07-24] MEDS: Docusate Sodium 100 MG Cap PO SCH ×2 (08:41→20:38)
[2017-07-24] MEDS: amLODIPine 5 MG Tab PO SCH (08:42)
[2017-07-24] MEDS: Lisinopril 20 MG Tab PO SCH (08:51)
[2017-07-24] MEDS: Calcium Carbonate/Vitamin D3 1500 MG-200 Units Tab PO SCH ×2 (14:53→16:52)
[2017-07-24] MEDS: Calcitonin (Salmon) Nasal Spray 3.7 ML Bottle NAS SCH (15:14)
--- NOTE | 2017-07-24 17:25 | PCM.PRNOTE ---
- Free Text/Narrative Note: RIGHT SHOULDER injection Right shoulder prepped sterilely and 2mL lidocaine 1%, 2mL 0.5% marcaine, 2mL kenalog 40mg/mL in a 10mL syringe injected with a 22 ga needle anteriorly without complications. Less than 0.5mL blood loss.
[2017-07-24] MEDS ORDERED: Nystatin Topical Powder 15 GM Bottle ONE (17:34)
[2017-07-24] MEDS ORDERED: Simvastatin 40 MG Tab PO SCH (20:00)
[2017-07-24] MEDS: Simvastatin 40 MG Tab PO SCH (20:39)
[2017-07-24] MEDS: Latanoprost 0.005% Ophth Soln 2.5 ML Bottle EYEBOTH SCH (20:39)
[2017-07-24] MEDS: Nystatin Topical Powder 15 GM Bottle TOP SCH (20:42)
[2017-07-25] MEDS: Acetaminophen/HYDROcodone 325-5 MG Tab PO PRN ×3 (02:15→19:22)
[2017-07-25] MEDS: Ferrous Sulfate 325 MG Tab PO SCH ×2 (07:52→19:22)
[2017-07-25] MEDS: Calcium Carbonate/Vitamin D3 1500 MG-200 Units Tab PO SCH ×2 (07:52→16:40)
[2017-07-25] MEDS: Docusate Sodium 100 MG Cap PO SCH ×2 (07:52→19:21)
[2017-07-25] MEDS: amLODIPine 5 MG Tab PO SCH (07:53)
[2017-07-25] MEDS: Nystatin Topical Powder 15 GM Bottle TOP SCH ×2 (07:54→19:27)
[2017-07-25] MEDS: Omeprazole 20 MG Cap.CR PO SCH (07:54)
[2017-07-25] MEDS: Sennosides 8.6 MG Tab PO SCH (07:54)
[2017-07-25] MEDS: Ascorbic Acid 500 MG Tab PO SCH ×2 (07:55→16:40)
[2017-07-25] MEDS: Acetaminophen 500 MG Tab PO SCH ×3 (07:55→16:40)
[2017-07-25] MEDS ORDERED: Enoxaparin 80 MG/0.8 ML Syringe SUBCUT SCH (08:00)
[2017-07-25] MEDS ORDERED: Calcium Carbonate/Vitamin D3 1250 MG-200 Unit Tab PO SCH (08:00)
[2017-07-25] MEDS: Enoxaparin 40 MG/0.4 ML Syringe SUBCUT SCH (08:57)
[2017-07-25] MEDS: Calcitonin (Salmon) Nasal Spray 3.7 ML Bottle NAS SCH (10:24)
[2017-07-25] MEDS: Lisinopril 20 MG Tab PO SCH (12:09)
[2017-07-25] MEDS ORDERED: BUTRANS 10 MCG TOP SCH (13:00)
--- NOTE | 2017-07-25 14:37 | PCM.SN ---
- Free Text/Narrative Note: This is an 82yo F in swing bed who notes pain after trying abduction exercises of the left hip. Discussed plan of care, ROS negative except for left hip tenderness, mild pain on palpation of left hip but no ROM done. We will order some base line lab work and a follow up left hip xray due to the new onset pain.
[2017-07-25] MEDS: Simvastatin 40 MG Tab PO SCH (19:22)
[2017-07-25] MEDS: Latanoprost 0.005% Ophth Soln 2.5 ML Bottle EYEBOTH SCH (19:22)
[2017-07-26] MEDS: Acetaminophen 500 MG Tab PO SCH ×5 (02:59→19:42)
[2017-07-26] MEDS ORDERED: EPOETIN ALFA 10000 UNIT/1 ML SUBCUT SCH (08:00)
[2017-07-26] MEDS: Docusate Sodium 100 MG Cap PO SCH ×2 (08:31→19:42)
[2017-07-26] MEDS: amLODIPine 5 MG Tab PO SCH (08:31)
[2017-07-26] MEDS: Ferrous Sulfate 325 MG Tab PO SCH ×2 (08:31→19:42)
[2017-07-26] MEDS: Calcium Carbonate/Vitamin D3 1500 MG-200 Units Tab PO SCH ×2 (08:31→17:00)
[2017-07-26] MEDS: Ascorbic Acid 500 MG Tab PO SCH ×2 (08:32→17:00)
[2017-07-26] MEDS: Nystatin Topical Powder 15 GM Bottle TOP SCH ×2 (08:32→19:41)
[2017-07-26] MEDS: Omeprazole 20 MG Cap.CR PO SCH (08:32)
[2017-07-26] MEDS: Sennosides 8.6 MG Tab PO SCH (08:32)
[2017-07-26] MEDS: Enoxaparin 40 MG/0.4 ML Syringe SUBCUT SCH (08:34)
[2017-07-26] MEDS: Calcitonin (Salmon) Nasal Spray 3.7 ML Bottle NAS SCH (08:40)
[2017-07-26] MEDS: Acetaminophen/HYDROcodone 325-5 MG Tab PO PRN (15:12)
[2017-07-26] MEDS: Lisinopril 20 MG Tab PO SCH (15:18)
[2017-07-26] MEDS: Simvastatin 40 MG Tab PO SCH (19:42)
[2017-07-26] MEDS: Latanoprost 0.005% Ophth Soln 2.5 ML Bottle EYEBOTH SCH (19:43)
--- NOTE | 2017-07-27 03:05 | CR ---
DATE OF SERVICE: 07/25/2017 CLINICAL DATA: Hip Pain LEFT HIP The patient is status post internal fixation of a comminuted intertrochanteric fracture. The fracture fragments are in adequate alignment and position. No acute abnormalities. [id number] MTDD
[2017-07-27] MEDS: Docusate Sodium 100 MG Cap PO SCH ×2 (08:03→23:00)
[2017-07-27] MEDS: Ferrous Sulfate 325 MG Tab PO SCH ×2 (08:03→19:51)
[2017-07-27] MEDS: amLODIPine 5 MG Tab PO SCH (08:04)
[2017-07-27] MEDS: Ascorbic Acid 500 MG Tab PO SCH ×2 (08:04→17:27)
[2017-07-27] MEDS: Omeprazole 20 MG Cap.CR PO SCH (08:04)
[2017-07-27] MEDS: Acetaminophen 500 MG Tab PO SCH ×4 (08:04→19:52)
[2017-07-27] MEDS: Sennosides 8.6 MG Tab PO SCH (08:04)
[2017-07-27] MEDS: Enoxaparin 40 MG/0.4 ML Syringe SUBCUT SCH (08:08)
[2017-07-27] MEDS: Calcium Carbonate/Vitamin D3 1500 MG-200 Units Tab PO SCH ×2 (08:09→17:23)
[2017-07-27] MEDS: Calcitonin (Salmon) Nasal Spray 3.7 ML Bottle NAS SCH (08:10)
[2017-07-27] MEDS: Nystatin Topical Powder 15 GM Bottle TOP SCH ×2 (11:00→19:50)
[2017-07-27] MEDS: Acetaminophen/HYDROcodone 325-5 MG Tab PO PRN ×2 (13:51→19:51)
[2017-07-27] MEDS: Lisinopril 20 MG Tab PO SCH (13:56)
[2017-07-27] MEDS: Simvastatin 40 MG Tab PO SCH (19:51)
[2017-07-27] MEDS: Latanoprost 0.005% Ophth Soln 2.5 ML Bottle EYEBOTH SCH (19:52)
[2017-07-28] MEDS ORDERED: BUTRANS 10 MCG TOP SCH (08:00)
[2017-07-28] MEDS: amLODIPine 5 MG Tab PO SCH (08:20)
[2017-07-28] MEDS: Ferrous Sulfate 325 MG Tab PO SCH ×2 (08:20→19:50)
[2017-07-28] MEDS: Lisinopril 20 MG Tab PO SCH (08:20)
[2017-07-28] MEDS: Docusate Sodium 100 MG Cap PO SCH ×2 (08:21→19:50)
[2017-07-28] MEDS: Omeprazole 20 MG Cap.CR PO SCH (08:21)
[2017-07-28] MEDS: Ascorbic Acid 500 MG Tab PO SCH ×2 (08:21→17:20)
[2017-07-28] MEDS: Acetaminophen 500 MG Tab PO SCH ×4 (08:21→19:50)
[2017-07-28] MEDS: Enoxaparin 40 MG/0.4 ML Syringe SUBCUT SCH (08:22)
[2017-07-28] MEDS: Calcitonin (Salmon) Nasal Spray 3.7 ML Bottle NAS SCH ×2 (08:24→19:52)
[2017-07-28] MEDS: Nystatin Topical Powder 15 GM Bottle TOP SCH ×2 (08:24→19:51)
[2017-07-28] MEDS: Calcium Carbonate/Vitamin D3 1500 MG-200 Units Tab PO SCH (08:24)
[2017-07-28] MEDS: Sennosides 8.6 MG Tab PO SCH (08:33)
--- NOTE | 2017-07-28 11:54 | PCM.PN ---
- General Info Date of Service: 07/28/17 Subjective Update: Patient is doing well and has been able to transfer and walk with assistance without issues. Patient states she does feel a little sore but has no concerns or issues at this time. Functional Status: Reports: Pain Controlled, Tolerating Diet, Ambulating - Review of Systems General: Reports: Weakness HEENT: Reports: No Symptoms Pulmonary: Reports: No Symptoms Cardiovascular: Reports: No Symptoms Gastrointestinal: Reports: No Symptoms Genitourinary: Reports: No Symptoms Musculoskeletal: Reports: Arm Pain, Leg Pain Skin: Reports: No Symptoms Neurological: Reports: Difficulty Walking, Weakness - Patient Data Vitals - Most Recent: Last Vital Signs Temp 36.8 C 07/28/17 10:00 Pulse 66 07/28/17 10:00 Resp 16 07/27/17 22:00 BP 124/77 07/28/17 10:00 Pulse Ox 99 07/28/17 10:00 Weight - Most Recent: 78.131 kg Med Orders - Current: Current Medications Acetaminophen (Tylenol Extra Strength) 500 mg PO QID [facility] Last Admin: 07/28/17 08:21 Dose: 500 mg Hydrocodone Bitart/Acetaminophen ([place] 325-5 Mg) 1 - 2 tab PO Q4H PRN PRN Reason: PAIN Last Admin: 07/27/17 19:51 Dose: 1 tab Amlodipine Besylate (Norvasc) 5 mg PO DAILY [facility] Last Admin: 07/28/17 08:20 Dose: 5 mg Ascorbic Acid (Vitamin C) 250 mg PO BIDMEALS [facility] Last Admin: 07/28/17 08:21 Dose: 250 mg Bisacodyl (Dulcolax) 10 mg RECTAL DAILY PRN PRN Reason: Constipation Calcitonin [place] (Miacalcin Nasal [place]) 0 ml [place]ADE[place]INE DAILY [facility] Last Admin: 07/28/17 08:24 Dose: Not Given Calcium Carbonate (Calcium Carbonate/Vitamin D 1500 Mg-200 Unit) 1 tab PO BIDMEALS [facility] Last Admin: 07/28/17 08:24 Dose: Not Given Docusate Sodium (Colace) 100 mg PO BID [facility] Last Admin: 07/28/17 08:21 Dose: 100 mg Enoxaparin Sodium (Lovenox) 40 mg SUBCUT DAILY [facility] Last Admin: 07/28/17 08:22 Dose: 40 mg Epoetin [place] (Procrit) 20,000 units SUBCUT .WEEKLY [facility] Last Admin: 07/26/17 08:40 Dose: 20,000 units Ferrous Sulfate (Ferrous Sulfate) 325 mg PO BID [facility] Last Admin: 07/28/17 08:20 Dose: 325 mg Latanoprost (Xalatan 0.005% Ophth Soln) 0 ml EYEBOTH BEDTIME [facility] Last Admin: 07/27/17 19:52 Dose: 1 drop Lisinopril (Prinivil) 20 mg PO DAILY [facility] Last Admin: 07/28/17 08:20 Dose: 20 mg Magnesium Hydroxide (Milk Of Magnesia) 30 ml PO DAILY PRN PRN Reason: Constipation Miscellaneous Information (Remove Patch) 1 ea TRDERM .WEEKLY [facility] Butrans 10mcg Patch 1 each TOP .WEEKLY [facility] Nystatin (Nystop) 0 gm TOP BID [facility] Last Admin: 07/28/17 08:24 Dose: 1 applic Omeprazole (Omeprazole) 20 mg PO DAILY [facility] Last Admin: 07/28/17 08:21 Dose: 20 mg Polyethylene Glycol (Miralax) 17 gm PO DAILY PRN PRN Reason: Constipation Last Admin: 07/23/17 22:00 Dose: 17 gm Senna (Senna) 17.2 mg PO DAILY [facility] Last Admin: 07/28/17 08:33 Dose: 17.2 mg Simvastatin (Zocor) 40 mg PO BEDTIME [facility] Last Admin: 07/27/17 19:51 Dose: 40 mg Discontinued Medications Hydrocodone Bitart/Acetaminophen ([place] 325-5 Mg) 3 tab PO BID [facility] Last Admin: 07/24/17 08:51 Dose: 3 tab Hydrocodone Bitart/Acetaminophen ([place] 325-5 Mg) 1 tab PO Q4H PRN PRN Reason: Pain Enoxaparin Sodium (Lovenox) 80 mg SUBCUT DAILY [facility] Butrans 10mcg Patch 1 each TOP .WEEKLY [facility] Nystatin (Nystop) Confirm Administered Dose 15 gm .ROUTE .STK-MED ONE Stop: 07/24/17 17:35 Last Admin: 07/24/17 18:43 Dose: Not Given Tuberculin PPD (Aplisol) 5 unit IDERM ONETIME ONE Stop: 07/23/17 17:04 Last Admin: 07/23/17 20:23 Dose: 5 unit - Exam General: Alert, Oriented, Cooperative HEENT: Pupils Equal, Pupils Reactive, EOMI Neck: Supple Lungs: Clear to Auscultation, Normal Respiratory Effort Cardiovascular: Regular Rate, Regular Rhythm GI/Abdominal Exam: Normal Bowel Sounds, Soft, Non-Tender Extremities: Normal Inspection, Pedal Edema Skin: Warm, Dry, Intact - Problem List & Annotations (1) Hip fracture, left SNOMED Code(s): 987128517 Code(s): S72.002A - FRACTURE OF UNSP PART OF NECK OF LEFT FEMUR, INIT Status: Acute Current Visit: Yes Qualifiers: Encounter type: subsequent encounter (2) Left humeral fracture SNOMED Code(s): 56828550 Code(s): S42.302A - UNSP FRACTURE OF SHAFT OF HUMERUS, LEFT ARM, INIT Status: Acute Current Visit: Yes Qualifiers: Encounter type: subsequent encounter Humerus Location: proximal Fracture type: closed Fracture alignment: displaced Fracture healing: with routine healing (3) Left radial fracture SNOMED Code(s): 10224410 Code(s): S52.92XA - UNSP FRACTURE OF LEFT FOREARM, INIT FOR CLOS FX Status : Acute Current Visit: Yes Qualifiers: Encounter type: subsequent encounter Radius location: distal Fracture type: closed Fracture morphology: unspecified fracture morphology Fracture healing: with routine healing Qualified Code(s): S52.502D - Unspecified fracture of the lower end of left radius, subsequent encounter for closed fracture with routine healing (4) Left rib fracture SNOMED Code(s): 23202321 Code(s): S22.32XA - FRACTURE OF ONE RIB, LEFT SIDE, INIT FOR CLOS FX Status : Acute Current Visit: Yes Qualifiers: Rib fracture type: multiple ribs Fracture type: closed Fracture healing: with routine healing (5) Multiple fractures of left upper extremity and ribs SNOMED Code(s): 45105520 Code(s): S42.302A - UNSP FRACTURE OF SHAFT OF HUMERUS, LEFT ARM, INIT; S22.42XA - MULTIPLE FRACTURES OF RIBS, LEFT SIDE, INIT FOR CLOS FX Status: Acute Current Visit: Yes Qualifiers: Encounter type: subsequent encounter - Problem List Review Problem List Initiated/Reviewed/Updated: Yes - My Orders Last 24 Hours: My Active Orders 07/28/17 08:00 Non-Formulary Medication [NF Drug] 1 each TOP .WEEKLY Remove Patch 1 ea TRDERM .WEEKLY - Plan Plan:: Follow up PT/OT. Will plan for Jose A to see Christel on . no changes to plan at this time. Continue current meds.
[2017-07-28] MEDS: Acetaminophen/HYDROcodone 325-5 MG Tab PO PRN (12:17)
[2017-07-28] MEDS: Simvastatin 40 MG Tab PO SCH (19:50)
[2017-07-28] MEDS: Latanoprost 0.005% Ophth Soln 2.5 ML Bottle EYEBOTH SCH (19:53)
[2017-07-29] MEDS ORDERED: Ferrous Sulfate 325 MG Tab ONE (12:00)
[2017-07-29] MEDS ORDERED: Acetaminophen 500 MG Tab ONE ×2 (12:00)
[2017-07-29] MEDS ORDERED: Lisinopril 20 MG Tab ONE (12:00)
[2017-07-29] MEDS ORDERED: Enoxaparin 40 MG/0.4 ML Syringe ONE (12:00)
[2017-07-29] MEDS ORDERED: amLODIPine 5 MG Tab ONE (12:00)
[2017-07-29] MEDS ORDERED: Docusate Sodium 100 MG Cap ONE (12:00)
[2017-07-29] MEDS ORDERED: Sennosides 8.6 MG Tab ONE (12:00)
[2017-07-29] MEDS ORDERED: Ascorbic Acid 500 MG Tab ONE (12:00)
[2017-07-29] MEDS ORDERED: Omeprazole 20 MG Cap.CR ONE (12:00)
--- NOTE | 2017-07-29 15:25 | PCM.SN ---
- Free Text/Narrative Note: Discussed plan of care and plan for Orthopedics follow up in Swing bed with Jose A. Discussed plan with Jose A and she will have Dr. Campos review xray and formulate a plan. No weight bearing at this time.
[2017-07-29] MEDS: Docusate Sodium 100 MG Cap PO SCH ×2 (15:57→20:06)
[2017-07-29] MEDS: Ferrous Sulfate 325 MG Tab PO SCH ×2 (15:58→20:07)
[2017-07-29] MEDS: Enoxaparin 40 MG/0.4 ML Syringe SUBCUT SCH (15:58)
[2017-07-29] MEDS: Nystatin Topical Powder 15 GM Bottle TOP SCH ×2 (15:59→20:07)
[2017-07-29] MEDS: Omeprazole 20 MG Cap.CR PO SCH (15:59)
[2017-07-29] MEDS: Calcitonin (Salmon) Nasal Spray 3.7 ML Bottle NAS SCH ×2 (15:59→20:30)
[2017-07-29] MEDS: amLODIPine 5 MG Tab PO SCH (15:59)
[2017-07-29] MEDS: Lisinopril 20 MG Tab PO SCH (15:59)
[2017-07-29] MEDS: Ascorbic Acid 500 MG Tab PO SCH ×2 (16:00→16:30)
[2017-07-29] MEDS: Acetaminophen 500 MG Tab PO SCH ×3 (16:00→20:07)
[2017-07-29] MEDS: Sennosides 8.6 MG Tab PO SCH (16:00)
--- NOTE | 2017-07-29 17:43 | CR ---
DATE OF SERVICE: 07/29/17 CLINICAL DATA: S/P ORIF LEFT WRIST No priors. The patient is status post internal fixation of a distal radial fracture with a metallic sideplate and multiple screws. The fracture fragments are in anatomic alignment and position. There is a mildly displaced fracture through the base of the ulnar styloid. There is diffuse osteopenia. There are osteoarthritic changes involving multiple joints. No acute abnormalities. [id number] [facility]
--- NOTE | 2017-07-29 17:44 | CR ---
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 The prosthesis appears intact. No acute abnormalities. [id number] MTDD
[2017-07-29] MEDS: Simvastatin 40 MG Tab PO SCH (20:07)
[2017-07-29] MEDS: Latanoprost 0.005% Ophth Soln 2.5 ML Bottle EYEBOTH SCH (20:08)
[2017-07-29] MEDS: BUTRANS 10 MCG TOP SCH (20:45)
[2017-07-30] MEDS: Ferrous Sulfate 325 MG Tab PO SCH ×2 (07:15→20:36)
[2017-07-30] MEDS: Lisinopril 20 MG Tab PO SCH (07:15)
[2017-07-30] MEDS: amLODIPine 5 MG Tab PO SCH (07:15)
[2017-07-30] MEDS: Acetaminophen 500 MG Tab PO SCH ×4 (07:16→20:00)
[2017-07-30] MEDS: Omeprazole 20 MG Cap.CR PO SCH (07:16)
[2017-07-30] MEDS: Ascorbic Acid 500 MG Tab PO SCH ×2 (07:16→18:37)
[2017-07-30] MEDS: Enoxaparin 40 MG/0.4 ML Syringe SUBCUT SCH (07:17)
[2017-07-30] MEDS: Sennosides 8.6 MG Tab PO SCH (07:24)
[2017-07-30] MEDS: Docusate Sodium 100 MG Cap PO SCH ×2 (07:24→20:35)
[2017-07-30] MEDS: Nystatin Topical Powder 15 GM Bottle TOP SCH ×2 (07:26→20:35)
[2017-07-30] MEDS: Calcium Carbonate/Vitamin D3 1500 MG-200 Units Tab PO SCH ×2 (12:08→18:36)
[2017-07-30] MEDS: Simvastatin 40 MG Tab PO SCH (20:35)
[2017-07-30] MEDS: Calcitonin (Salmon) Nasal Spray 3.7 ML Bottle NAS SCH (20:41)
[2017-07-30] MEDS: Latanoprost 0.005% Ophth Soln 2.5 ML Bottle EYEBOTH SCH (20:42)
[2017-07-31] MEDS: Acetaminophen 500 MG Tab PO SCH ×4 (08:31→19:44)
[2017-07-31] MEDS: Docusate Sodium 100 MG Cap PO SCH ×2 (08:31→19:43)
[2017-07-31] MEDS: Ascorbic Acid 500 MG Tab PO SCH ×2 (08:31→17:25)
[2017-07-31] MEDS: Sennosides 8.6 MG Tab PO SCH ×2 (08:31→08:52)
[2017-07-31] MEDS: Omeprazole 20 MG Cap.CR PO SCH (08:31)
[2017-07-31] MEDS: Ferrous Sulfate 325 MG Tab PO SCH ×2 (08:35→19:44)
[2017-07-31] MEDS: Calcium Carbonate/Vitamin D3 1500 MG-200 Units Tab PO SCH ×2 (08:37→17:00)
[2017-07-31] MEDS: Nystatin Topical Powder 15 GM Bottle TOP SCH ×2 (08:37→19:53)
[2017-07-31] MEDS: Lisinopril 20 MG Tab PO SCH (08:50)
[2017-07-31] MEDS: amLODIPine 5 MG Tab PO SCH (08:51)
[2017-07-31] MEDS: Enoxaparin 40 MG/0.4 ML Syringe SUBCUT SCH (08:51)
[2017-07-31] MEDS: Acetaminophen/HYDROcodone 325-5 MG Tab PO PRN (12:11)
[2017-07-31] MEDS: Simvastatin 40 MG Tab PO SCH (19:44)
[2017-07-31] MEDS: Calcitonin (Salmon) Nasal Spray 3.7 ML Bottle NAS SCH (19:52)
[2017-07-31] MEDS: Latanoprost 0.005% Ophth Soln 2.5 ML Bottle EYEBOTH SCH (19:55)
[2017-08-01] MEDS: Acetaminophen/HYDROcodone 325-5 MG Tab PO PRN ×2 (07:07→14:33)
[2017-08-01] MEDS: Enoxaparin 40 MG/0.4 ML Syringe SUBCUT SCH (07:23)
[2017-08-01] MEDS: Docusate Sodium 100 MG Cap PO SCH ×2 (07:24→19:44)
[2017-08-01] MEDS: Sennosides 8.6 MG Tab PO SCH (07:24)
[2017-08-01] MEDS: amLODIPine 5 MG Tab PO SCH (07:24)
[2017-08-01] MEDS: Lisinopril 20 MG Tab PO SCH (07:25)
[2017-08-01] MEDS: Omeprazole 20 MG Cap.CR PO SCH (07:25)
[2017-08-01] MEDS: Ascorbic Acid 500 MG Tab PO SCH ×2 (07:25→17:16)
[2017-08-01] MEDS: Ferrous Sulfate 325 MG Tab PO SCH ×2 (07:25→19:45)
[2017-08-01] MEDS: Acetaminophen 500 MG Tab PO SCH ×4 (07:26→19:42)
[2017-08-01] MEDS: Nystatin Topical Powder 15 GM Bottle TOP SCH ×2 (12:20→19:48)
[2017-08-01] MEDS: Calcium Carbonate/Vitamin D3 1500 MG-400 Units Tab PO SCH (17:16)
[2017-08-01] MEDS: Simvastatin 40 MG Tab PO SCH (19:43)
[2017-08-01] MEDS: Calcitonin (Salmon) Nasal Spray 3.7 ML Bottle NAS SCH (19:45)
[2017-08-01] MEDS: Latanoprost 0.005% Ophth Soln 2.5 ML Bottle EYEBOTH SCH (19:55)
[2017-08-02] MEDS: Enoxaparin 40 MG/0.4 ML Syringe SUBCUT SCH (08:13)
[2017-08-02] MEDS: Ascorbic Acid 500 MG Tab PO SCH ×2 (08:14→17:19)
[2017-08-02] MEDS: Omeprazole 20 MG Cap.CR PO SCH (08:14)
[2017-08-02] MEDS: Acetaminophen 500 MG Tab PO SCH ×4 (08:14→20:30)
[2017-08-02] MEDS: Calcium Carbonate/Vitamin D3 1500 MG-400 Units Tab PO SCH ×2 (08:14→17:20)
[2017-08-02] MEDS: Ferrous Sulfate 325 MG Tab PO SCH ×2 (08:14→20:30)
[2017-08-02] MEDS: Docusate Sodium 100 MG Cap PO SCH ×2 (08:14→20:30)
[2017-08-02] MEDS: Sennosides 8.6 MG Tab PO SCH (08:14)
[2017-08-02] MEDS: amLODIPine 5 MG Tab PO SCH (08:15)
[2017-08-02] MEDS: Lisinopril 20 MG Tab PO SCH (08:18)
[2017-08-02] MEDS: Nystatin Topical Powder 15 GM Bottle TOP SCH ×2 (08:21→20:30)
[2017-08-02] MEDS: Latanoprost 0.005% Ophth Soln 2.5 ML Bottle EYEBOTH SCH (20:30)
[2017-08-02] MEDS: Simvastatin 40 MG Tab PO SCH (20:30)
[2017-08-02] MEDS: Calcitonin (Salmon) Nasal Spray 3.7 ML Bottle NAS SCH (20:30)
[2017-08-03] MEDS: Acetaminophen 500 MG Tab PO SCH ×4 (09:20→20:18)
[2017-08-03] MEDS: Calcium Carbonate/Vitamin D3 1500 MG-400 Units Tab PO SCH ×2 (09:20→16:42)
[2017-08-03] MEDS: Lisinopril 20 MG Tab PO SCH (09:20)
[2017-08-03] MEDS: Sennosides 8.6 MG Tab PO SCH (09:21)
[2017-08-03] MEDS: Ascorbic Acid 500 MG Tab PO SCH ×2 (09:22→16:42)
[2017-08-03] MEDS: Ferrous Sulfate 325 MG Tab PO SCH ×2 (09:23→20:18)
[2017-08-03] MEDS: amLODIPine 5 MG Tab PO SCH (09:23)
[2017-08-03] MEDS: Docusate Sodium 100 MG Cap PO SCH ×2 (09:23→20:18)
[2017-08-03] MEDS: Enoxaparin 40 MG/0.4 ML Syringe SUBCUT SCH (09:24)
[2017-08-03] MEDS: Nystatin Topical Powder 15 GM Bottle TOP SCH ×2 (09:25→20:19)
[2017-08-03] MEDS: Omeprazole 20 MG Cap.CR PO SCH (09:25)
[2017-08-03] MEDS: Simvastatin 40 MG Tab PO SCH (20:18)
[2017-08-03] MEDS: Latanoprost 0.005% Ophth Soln 2.5 ML Bottle EYEBOTH SCH (20:19)
[2017-08-03] MEDS: Calcitonin (Salmon) Nasal Spray 3.7 ML Bottle NAS SCH (20:20)
[2017-08-04] MEDS: Docusate Sodium 100 MG Cap PO SCH ×2 (08:18→20:18)
[2017-08-04] MEDS: Calcium Carbonate/Vitamin D3 1500 MG-400 Units Tab PO SCH ×2 (08:18→16:25)
[2017-08-04] MEDS: Ferrous Sulfate 325 MG Tab PO SCH ×2 (08:20→20:18)
[2017-08-04] MEDS: amLODIPine 5 MG Tab PO SCH (08:21)
[2017-08-04] MEDS: Enoxaparin 40 MG/0.4 ML Syringe SUBCUT SCH (08:21)
[2017-08-04] MEDS: Nystatin Topical Powder 15 GM Bottle TOP SCH ×2 (08:23→20:22)
[2017-08-04] MEDS: Omeprazole 20 MG Cap.CR PO SCH (08:23)
[2017-08-04] MEDS: Lisinopril 20 MG Tab PO SCH (08:23)
[2017-08-04] MEDS: Sennosides 8.6 MG Tab PO SCH (08:24)
[2017-08-04] MEDS: Acetaminophen 500 MG Tab PO SCH ×4 (08:26→20:23)
[2017-08-04] MEDS: Ascorbic Acid 500 MG Tab PO SCH ×2 (08:27→16:25)
--- NOTE | 2017-08-04 11:09 | PCM.SN ---
- Free Text/Narrative Note: Patient seen and doing well. She is using a lift while pending f/u with Dr. Campos for weight bearing status. Did discuss and mention that patient was allowed toe-touch for transfers and getting up per Jose A. No concerns with health and no pain at this time.
[2017-08-04] MEDS: Calcitonin (Salmon) Nasal Spray 3.7 ML Bottle NAS SCH (20:21)
[2017-08-04] MEDS ORDERED: Simvastatin 40 MG Tab ONE (20:22)
[2017-08-04] MEDS: Latanoprost 0.005% Ophth Soln 2.5 ML Bottle EYEBOTH SCH (20:22)
[2017-08-04] MEDS ORDERED: Acetaminophen 500 MG Tab ONE (20:22)
[2017-08-04] MEDS ORDERED: Ferrous Sulfate 325 MG Tab ONE (20:23)
[2017-08-04] MEDS: Simvastatin 40 MG Tab PO SCH (20:23)
[2017-08-04] MEDS ORDERED: Docusate Sodium 100 MG Cap ONE (20:24)
[2017-08-05] MEDS: Docusate Sodium 100 MG Cap PO SCH ×2 (08:50→23:17)
[2017-08-05] MEDS: Omeprazole 20 MG Cap.CR PO SCH (08:50)
[2017-08-05] MEDS: amLODIPine 5 MG Tab PO SCH (08:51)
[2017-08-05] MEDS: Ferrous Sulfate 325 MG Tab PO SCH ×2 (08:51→23:17)
[2017-08-05] MEDS: Acetaminophen 500 MG Tab PO SCH ×4 (08:51→19:38)
[2017-08-05] MEDS: Calcium Carbonate/Vitamin D3 1500 MG-400 Units Tab PO SCH ×2 (08:51→16:54)
[2017-08-05] MEDS: Ascorbic Acid 500 MG Tab PO SCH ×2 (08:51→16:54)
[2017-08-05] MEDS: Lisinopril 20 MG Tab PO SCH (08:52)
[2017-08-05] MEDS: Nystatin Topical Powder 15 GM Bottle TOP SCH ×2 (08:52→19:39)
[2017-08-05] MEDS: Enoxaparin 40 MG/0.4 ML Syringe SUBCUT SCH (09:01)
[2017-08-05] MEDS: Sennosides 8.6 MG Tab PO SCH (09:02)
[2017-08-05] MEDS: Simvastatin 40 MG Tab PO SCH (19:38)
[2017-08-05] MEDS: Latanoprost 0.005% Ophth Soln 2.5 ML Bottle EYEBOTH SCH (19:39)
[2017-08-05] MEDS: Calcitonin (Salmon) Nasal Spray 3.7 ML Bottle NAS SCH (19:40)
[2017-08-05] MEDS: BUTRANS 10 MCG TOP SCH (23:17)
[2017-08-06] MEDS: Acetaminophen/HYDROcodone 325-5 MG Tab PO PRN (04:50)
[2017-08-06] MEDS: Ferrous Sulfate 325 MG Tab PO SCH ×2 (07:58→19:54)
[2017-08-06] MEDS: Calcium Carbonate/Vitamin D3 1500 MG-400 Units Tab PO SCH ×2 (07:58→17:31)
[2017-08-06] MEDS: Acetaminophen 500 MG Tab PO SCH ×4 (07:58→19:54)
[2017-08-06] MEDS: Docusate Sodium 100 MG Cap PO SCH ×2 (07:58→19:53)
[2017-08-06] MEDS: Ascorbic Acid 500 MG Tab PO SCH ×2 (07:58→17:31)
[2017-08-06] MEDS: Sennosides 8.6 MG Tab PO SCH (07:59)
[2017-08-06] MEDS: Nystatin Topical Powder 15 GM Bottle TOP SCH ×2 (07:59→19:58)
[2017-08-06] MEDS: Enoxaparin 40 MG/0.4 ML Syringe SUBCUT SCH (07:59)
[2017-08-06] MEDS: Lisinopril 20 MG Tab PO SCH (07:59)
[2017-08-06] MEDS: amLODIPine 5 MG Tab PO SCH (07:59)
[2017-08-06] MEDS: Omeprazole 20 MG Cap.CR PO SCH (08:00)
[2017-08-06] MEDS: Simvastatin 40 MG Tab PO SCH (19:53)
[2017-08-06] MEDS: Latanoprost 0.005% Ophth Soln 2.5 ML Bottle EYEBOTH SCH (19:55)
[2017-08-06] MEDS: Calcitonin (Salmon) Nasal Spray 3.7 ML Bottle NAS SCH (19:55)
[2017-08-07] MEDS: Calcium Carbonate/Vitamin D3 1500 MG-400 Units Tab PO SCH ×2 (08:25→17:51)
[2017-08-07] MEDS: Ferrous Sulfate 325 MG Tab PO SCH ×2 (08:26→20:42)
[2017-08-07] MEDS: Docusate Sodium 100 MG Cap PO SCH ×2 (08:26→20:42)
[2017-08-07] MEDS: Enoxaparin 40 MG/0.4 ML Syringe SUBCUT SCH (08:26)
[2017-08-07] MEDS: amLODIPine 5 MG Tab PO SCH (08:28)
[2017-08-07] MEDS: Nystatin Topical Powder 15 GM Bottle TOP SCH ×2 (08:29→20:52)
[2017-08-07] MEDS: Omeprazole 20 MG Cap.CR PO SCH (08:30)
[2017-08-07] MEDS: Sennosides 8.6 MG Tab PO SCH (08:31)
[2017-08-07] MEDS: Lisinopril 20 MG Tab PO SCH (08:31)
[2017-08-07] MEDS: Ascorbic Acid 500 MG Tab PO SCH ×2 (08:33→17:52)
[2017-08-07] MEDS: Acetaminophen 500 MG Tab PO SCH ×4 (08:33→20:42)
[2017-08-07] MEDS: Latanoprost 0.005% Ophth Soln 2.5 ML Bottle EYEBOTH SCH (20:00)
[2017-08-07] MEDS: Simvastatin 40 MG Tab PO SCH (20:42)
[2017-08-07] MEDS: Calcitonin (Salmon) Nasal Spray 3.7 ML Bottle NAS SCH (20:43)
[2017-08-08] MEDS: Enoxaparin 40 MG/0.4 ML Syringe SUBCUT SCH (07:21)
[2017-08-08] MEDS: amLODIPine 5 MG Tab PO SCH (07:22)
[2017-08-08] MEDS: Calcium Carbonate/Vitamin D3 1500 MG-400 Units Tab PO SCH ×2 (07:22→16:42)
[2017-08-08] MEDS: Lisinopril 20 MG Tab PO SCH (07:22)
[2017-08-08] MEDS: Ferrous Sulfate 325 MG Tab PO SCH ×2 (07:23→20:17)
[2017-08-08] MEDS: Omeprazole 20 MG Cap.CR PO SCH (07:23)
[2017-08-08] MEDS: Acetaminophen 500 MG Tab PO SCH ×4 (07:23→20:17)
[2017-08-08] MEDS: Docusate Sodium 100 MG Cap PO SCH ×2 (07:23→20:17)
[2017-08-08] MEDS: Ascorbic Acid 500 MG Tab PO SCH ×2 (07:23→16:43)
[2017-08-08] MEDS: Sennosides 8.6 MG Tab PO SCH (07:23)
[2017-08-08] MEDS: Nystatin Topical Powder 15 GM Bottle TOP SCH ×2 (09:32→20:18)
[2017-08-08] MEDS: Simvastatin 40 MG Tab PO SCH (20:16)
[2017-08-08] MEDS: Calcitonin (Salmon) Nasal Spray 3.7 ML Bottle NAS SCH (20:17)
[2017-08-08] MEDS: Latanoprost 0.005% Ophth Soln 2.5 ML Bottle EYEBOTH SCH (20:19)
[2017-08-09] MEDS: Docusate Sodium 100 MG Cap PO SCH ×2 (08:05→20:10)
[2017-08-09] MEDS: amLODIPine 5 MG Tab PO SCH (08:05)
[2017-08-09] MEDS: Ferrous Sulfate 325 MG Tab PO SCH ×2 (08:05→20:11)
[2017-08-09] MEDS: Sennosides 8.6 MG Tab PO SCH (08:05)
[2017-08-09] MEDS: Omeprazole 20 MG Cap.CR PO SCH (08:05)
[2017-08-09] MEDS: Acetaminophen 500 MG Tab PO SCH ×4 (08:05→20:10)
[2017-08-09] MEDS: Calcium Carbonate/Vitamin D3 1500 MG-400 Units Tab PO SCH ×2 (08:06→17:16)
[2017-08-09] MEDS: Ascorbic Acid 500 MG Tab PO SCH ×2 (08:06→17:15)
[2017-08-09] MEDS: Lisinopril 20 MG Tab PO SCH (08:06)
[2017-08-09] MEDS: Enoxaparin 40 MG/0.4 ML Syringe SUBCUT SCH (08:07)
[2017-08-09] MEDS: Nystatin Topical Powder 15 GM Bottle TOP SCH ×2 (11:40→20:11)
[2017-08-09] MEDS: Simvastatin 40 MG Tab PO SCH (20:11)
[2017-08-09] MEDS: Latanoprost 0.005% Ophth Soln 2.5 ML Bottle EYEBOTH SCH (20:12)
[2017-08-09] MEDS: Calcitonin (Salmon) Nasal Spray 3.7 ML Bottle NAS SCH (20:13)
[2017-08-10] MEDS: Sennosides 8.6 MG Tab PO SCH (08:30)
[2017-08-10] MEDS: Ferrous Sulfate 325 MG Tab PO SCH ×2 (08:30→19:45)
[2017-08-10] MEDS: Omeprazole 20 MG Cap.CR PO SCH (08:30)
[2017-08-10] MEDS: Acetaminophen 500 MG Tab PO SCH ×4 (08:30→19:45)
[2017-08-10] MEDS: Lisinopril 20 MG Tab PO SCH (08:31)
[2017-08-10] MEDS: Docusate Sodium 100 MG Cap PO SCH ×2 (08:35→19:44)
[2017-08-10] MEDS: amLODIPine 5 MG Tab PO SCH (08:35)
[2017-08-10] MEDS: Ascorbic Acid 500 MG Tab PO SCH ×2 (08:36→16:40)
[2017-08-10] MEDS: Enoxaparin 40 MG/0.4 ML Syringe SUBCUT SCH (08:37)
[2017-08-10] MEDS: Calcium Carbonate/Vitamin D3 1500 MG-400 Units Tab PO SCH ×2 (08:37→16:40)
[2017-08-10] MEDS: Nystatin Topical Powder 15 GM Bottle TOP SCH ×2 (16:46→19:47)
[2017-08-10] MEDS: Simvastatin 40 MG Tab PO SCH (19:44)
[2017-08-10] MEDS: Calcitonin (Salmon) Nasal Spray 3.7 ML Bottle NAS SCH (19:46)
[2017-08-10] MEDS: Latanoprost 0.005% Ophth Soln 2.5 ML Bottle EYEBOTH SCH (19:47)
[2017-08-11] MEDS: Simvastatin 40 MG Tab PO SCH (02:04)
[2017-08-11] MEDS: Ferrous Sulfate 325 MG Tab PO SCH ×2 (08:22→20:15)
[2017-08-11] MEDS: Docusate Sodium 100 MG Cap PO SCH ×2 (08:22→20:15)
[2017-08-11] MEDS: Enoxaparin 40 MG/0.4 ML Syringe SUBCUT SCH (08:22)
[2017-08-11] MEDS: Calcium Carbonate/Vitamin D3 1500 MG-400 Units Tab PO SCH ×2 (08:22→17:06)
[2017-08-11] MEDS: Acetaminophen 500 MG Tab PO SCH ×4 (08:23→20:05)
[2017-08-11] MEDS: amLODIPine 5 MG Tab PO SCH (08:23)
[2017-08-11] MEDS: Ascorbic Acid 500 MG Tab PO SCH ×2 (08:23→17:06)
[2017-08-11] MEDS: Nystatin Topical Powder 15 GM Bottle TOP SCH ×2 (08:23→20:15)
[2017-08-11] MEDS: Sennosides 8.6 MG Tab PO SCH (08:23)
[2017-08-11] MEDS: Lisinopril 20 MG Tab PO SCH (08:23)
[2017-08-11] MEDS: Omeprazole 20 MG Cap.CR PO SCH (08:23)
[2017-08-11] MEDS: Magnesium Hydroxide 400 MG/5 ML Susp 30 ML Cup PO PRN (08:31)
[2017-08-11] MEDS: Latanoprost 0.005% Ophth Soln 2.5 ML Bottle EYEBOTH SCH (20:05)
[2017-08-11] MEDS: Calcitonin (Salmon) Nasal Spray 3.7 ML Bottle NAS SCH (20:15)
[2017-08-12] MEDS: Docusate Sodium 100 MG Cap PO SCH ×2 (07:57→19:20)
[2017-08-12] MEDS: Ascorbic Acid 500 MG Tab PO SCH ×2 (07:57→19:20)
[2017-08-12] MEDS: Sennosides 8.6 MG Tab PO SCH (07:57)
[2017-08-12] MEDS: Calcium Carbonate/Vitamin D3 1500 MG-400 Units Tab PO SCH ×2 (07:57→19:20)
[2017-08-12] MEDS: Enoxaparin 40 MG/0.4 ML Syringe SUBCUT SCH (07:57)
[2017-08-12] MEDS: Lisinopril 20 MG Tab PO SCH ×3 (07:58→13:16)
[2017-08-12] MEDS: Ferrous Sulfate 325 MG Tab PO SCH ×2 (08:01→19:22)
[2017-08-12] MEDS: Acetaminophen 500 MG Tab PO SCH ×3 (08:02→19:21)
[2017-08-12] MEDS: Omeprazole 20 MG Cap.CR PO SCH (08:02)
[2017-08-12] MEDS: amLODIPine 5 MG Tab PO SCH ×3 (08:02→13:17)
[2017-08-12] MEDS: Nystatin Topical Powder 15 GM Bottle TOP SCH ×2 (08:04→19:40)
--- NOTE | 2017-08-12 17:54 | PCM.PN ---
- General Info Date of Service: 08/12/17 Subjective Update: Patient states the left arm is improving but she continues to have a lot of pain on abduction and difficulty with movement. She has left hip pain but that has been a constant lateral pain. She is waiting to f/u with Dr. Campos for further instructions on PT and therapy. Functional Status: Reports: Pain Controlled, Tolerating Diet - Review of Systems General: Reports: Weakness HEENT: Reports: No Symptoms Pulmonary: Reports: No Symptoms Cardiovascular: Reports: No Symptoms Gastrointestinal: Reports: No Symptoms Genitourinary: Reports: No Symptoms Musculoskeletal: Reports: Leg Pain, Joint Pain Skin: Reports: No Symptoms Neurological: Reports: Difficulty Walking, Weakness - Patient Data Vitals - Most Recent: Last Vital Signs Temp 36.4 C 08/12/17 08:00 Pulse 63 08/12/17 08:00 Resp 16 08/12/17 08:00 BP 138/53 L 08/12/17 13:17 Pulse Ox 100 08/11/17 08:00 Weight - Most Recent: 75.75 kg Med Orders - Current: Current Medications Acetaminophen (Tylenol Extra Strength) 500 mg PO QID [facility] Last Admin: 08/12/17 13:24 Dose: Not Given Hydrocodone Bitart/Acetaminophen ([place] 325-5 Mg) 1 - 2 tab PO Q4H PRN PRN Reason: PAIN Last Admin: 08/06/17 04:50 Dose: 1 tab Amlodipine Besylate (Norvasc) 5 mg PO DAILY [facility] Last Admin: 08/12/17 13:17 Dose: 5 mg Ascorbic Acid (Vitamin C) 250 mg PO BIDMEALS [facility] Last Admin: 08/12/17 07:57 Dose: 250 mg Bisacodyl (Dulcolax) 10 mg RECTAL DAILY PRN PRN Reason: Constipation Calcitonin [place] (Miacalcin Nasal [place]) 0 ml MADELEINE DAILY@1999 [facility] Last Admin: 08/11/17 20:15 Dose: 1 sprays(dnu) Calcium Carbonate (Caltrate 600+D 1500 Mg-400 Units) 1 tab PO BIDMEALS [facility] Last Admin: 08/12/17 07:57 Dose: 1 tab Docusate Sodium (Colace) 100 mg PO BID [facility] Last Admin: 08/12/17 07:57 Dose: 100 mg Enoxaparin Sodium (Lovenox) 40 mg SUBCUT DAILY [facility] Last Admin: 08/12/17 07:57 Dose: 40 mg Epoetin [place] (Procrit) 20,000 units SUBCUT .WEEKLY [facility] Last Admin: 07/26/17 08:40 Dose: 20,000 units Ferrous Sulfate (Ferrous Sulfate) 325 mg PO BID [facility] Last Admin: 08/12/17 08:01 Dose: 325 mg Latanoprost (Xalatan 0.005% Ophth Soln) 0 ml EYEBOTH BEDTIME [facility] Last Admin: 08/11/17 20:05 Dose: 1 drop Lisinopril (Prinivil) 10 mg PO DAILY [facility] Magnesium Hydroxide (Milk Of Magnesia) 30 ml PO DAILY PRN PRN Reason: Constipation Last Admin: 08/11/17 08:31 Dose: 30 ml Miscellaneous Information (Remove Patch) 1 ea TRDERM Q7D [facility] Last Admin: 08/05/17 19:40 Dose: 1 ea Butrans 10mcg Patch 1 each TOP Q7D [facility] Last Admin: 08/05/17 23:17 Dose: 1 each Nystatin (Nystop) 0 gm TOP BID [facility] Last Admin: 08/12/17 08:04 Dose: 1 applic Omeprazole (Omeprazole) 20 mg PO DAILY [facility] Last Admin: 08/12/17 08:02 Dose: 20 mg Polyethylene Glycol (Miralax) 17 gm PO DAILY PRN PRN Reason: Constipation Last Admin: 07/23/17 22:00 Dose: 17 gm Senna (Senna) 17.2 mg PO DAILY [facility] Last Admin: 08/12/17 07:57 Dose: 17.2 mg Simvastatin (Zocor) 40 mg PO BEDTIME [facility] Last Admin: 08/11/17 02:04 Dose: 40 mg Discontinued Medications Acetaminophen (Tylenol Extra Strength) 500 mg .ROUTE .STK-MED ONE Stop: 07/29/17 12:01 Acetaminophen (Tylenol Extra Strength) 500 mg .ROUTE .STK-MED ONE Stop: 07/29/17 12:01 Acetaminophen (Tylenol Extra Strength) Confirm Administered Dose 500 mg .ROUTE .STK-MED ONE Stop: 08/04/17 20:23 Last Admin: 08/04/17 20:28 Dose: Not Given Hydrocodone Bitart/Acetaminophen ([place] 325-5 Mg) 3 tab PO BID [facility] Last Admin: 07/24/17 08:51 Dose: 3 tab Hydrocodone Bitart/Acetaminophen ([place] 325-5 Mg) 1 tab PO Q4H PRN PRN Reason: Pain Amlodipine Besylate (Norvasc) 5 mg .ROUTE .STK-MED ONE Stop: 07/29/17 12:01 Ascorbic Acid (Vitamin C) 500 mg .ROUTE .STK-MED ONE Stop: 07/29/17 12:01 Calcitonin [place] (Miacalcin Nasal [place]) 0 ml MADELEINE DAILY [facility] Last Admin: 07/28/17 08:24 Dose: Not Given Calcitonin [place] (Miacalcin Nasal [place]) 0 ml MADELEINE DAILY [facility] Last Admin: 07/29/17 20:30 Dose: 1 spray Calcium Carbonate (Calcium Carbonate/Vitamin D 1500 Mg-200 Unit) 1 tab PO BIDMEALS [facility] Last Admin: 07/31/17 17:00 Dose: Not Given Docusate Sodium (Colace) 100 mg .ROUTE .STK-MED ONE Stop: 07/29/17 12:01 Docusate Sodium (Colace) Confirm Administered Dose 100 mg .ROUTE .STK-MED ONE Stop: 08/04/17 20:25 Last Admin: 08/04/17 20:28 Dose: Not Given Enoxaparin Sodium (Lovenox) 80 mg SUBCUT DAILY [facility] Enoxaparin Sodium (Lovenox) 40 mg .ROUTE .STK-MED ONE Stop: 07/29/17 12:01 Ferrous Sulfate (Ferrous Sulfate) 325 mg .ROUTE .STK-MED ONE Stop: 07/29/17 12:01 Ferrous Sulfate (Ferrous Sulfate) Confirm Administered Dose 325 mg .ROUTE .STK- MED ONE Stop: 08/04/17 20:24 Last Admin: 08/04/17 20:28 Dose: Not Given Lisinopril (Prinivil) 20 mg PO DAILY [facility] Last Admin: 08/12/17 13:16 Dose: 10 mg Lisinopril (Prinivil) 20 mg .ROUTE .STK-MED ONE Stop: 07/29/17 12:01 Miscellaneous Information (Remove Patch) 1 ea ABENA .WEEKLY [facility] Butrans 10mcg Patch 1 each TOP .WEEKLY [facility] Last Admin: 07/29/17 20:45 Dose: 1 each Butrans 10mcg Patch 1 each TOP .WEEKLY [facility] Nystatin (Nystop) Confirm Administered Dose 15 gm .ROUTE .STK-MED ONE Stop: 07/24/17 17:35 Last Admin: 07/24/17 18:43 Dose: Not Given Omeprazole (Omeprazole) 20 mg .ROUTE .STK-MED ONE Stop: 07/29/17 12:01 Senna (Senna) 17.2 mg .ROUTE .STK-MED ONE Stop: 07/29/17 12:01 Simvastatin (Zocor) Confirm Administered Dose 40 mg .ROUTE .STK-MED ONE Stop: 08/04/17 20:23 Last Admin: 08/04/17 20:28 Dose: Not Given Tuberculin PPD (Aplisol) 5 unit IDERM ONETIME ONE Stop: 07/23/17 17:04 Last Admin: 07/23/17 20:23 Dose: 5 unit - Exam General: Alert, Oriented, Cooperative HEENT: Pupils Equal, Pupils Reactive Neck: Supple Lungs: Clear to Auscultation, Normal Respiratory Effort Cardiovascular: Regular Rate, Regular Rhythm Back Exam: Normal Inspection Extremities: Pedal Edema (1+), Joint Swelling, Leg Pain Skin: Warm, Dry, Intact Wound/Incisions: Healing Well Neurological: No New Focal Deficit - Problem List & Annotations (1) Hip fracture, left SNOMED Code(s): 548042522 Code(s): S72.002A - FRACTURE OF UNSP PART OF NECK OF LEFT FEMUR, INIT Status: Acute Current Visit: Yes Qualifiers: Encounter type: subsequent encounter (2) Left humeral fracture SNOMED Code(s): 37230123 Code(s): S42.302A - UNSP FRACTURE OF SHAFT OF HUMERUS, LEFT ARM, INIT Status: Acute Current Visit: Yes Qualifiers: Encounter type: subsequent encounter Humerus Location: proximal Fracture type: closed Fracture alignment: displaced Fracture healing: with routine healing (3) Left radial fracture SNOMED Code(s): 76258771 Code(s): S52.92XA - UNSP FRACTURE OF LEFT FOREARM, INIT FOR CLOS FX Status : Acute Current Visit: Yes Qualifiers: Encounter type: subsequent encounter Radius location: distal Fracture type: closed Fracture morphology: unspecified fracture morphology Fracture healing: with routine healing Qualified Code(s): S52.502D - Unspecified fracture of the lower end of left radius, subsequent encounter for closed fracture with routine healing (4) Left rib fracture SNOMED Code(s): 26272641 Code(s): S22.32XA - FRACTURE OF ONE RIB, LEFT SIDE, INIT FOR CLOS FX Status : Acute Current Visit: Yes Qualifiers: Rib fracture type: multiple ribs Fracture type: closed Fracture healing: with routine healing (5) Multiple fractures of left upper extremity and ribs SNOMED Code(s): 02742013 Code(s): S42.302A - UNSP FRACTURE OF SHAFT OF HUMERUS, LEFT ARM, INIT; S22.42XA - MULTIPLE FRACTURES OF RIBS, LEFT SIDE, INIT FOR CLOS FX Status: Acute Current Visit: Yes Qualifiers: Encounter type: subsequent encounter - Problem List Review Problem List Initiated/Reviewed/Updated: Yes - My Orders Last 24 Hours: My Active Orders 08/13/17 08:00 Lisinopril [Prinivil] 10 mg PO DAILY - Plan Plan:: Plan of care for PT/OT therapy. Orthopedics f/u here in the hospital. Will plan for Jose A or Dr. Campos f/u. Medications continued. No changes at this time. 08/12/17 Continue OT and working with left arm. Pending Orthopedics follow up on . No other changes today.
[2017-08-12] MEDS: Calcitonin (Salmon) Nasal Spray 3.7 ML Bottle NAS SCH (19:22)
[2017-08-12] MEDS: Latanoprost 0.005% Ophth Soln 2.5 ML Bottle EYEBOTH SCH (19:37)
[2017-08-12] MEDS: Simvastatin 40 MG Tab PO SCH (19:38)
[2017-08-12] MEDS: BUTRANS 10 MCG TOP SCH (20:13)
[2017-08-13] MEDS: Ferrous Sulfate 325 MG Tab PO SCH ×2 (08:18→19:50)
[2017-08-13] MEDS: Acetaminophen 500 MG Tab PO SCH ×4 (08:18→19:50)
[2017-08-13] MEDS: Ascorbic Acid 500 MG Tab PO SCH ×2 (08:18→18:25)
[2017-08-13] MEDS: Docusate Sodium 100 MG Cap PO SCH ×2 (08:19→19:50)
[2017-08-13] MEDS: Sennosides 8.6 MG Tab PO SCH (08:19)
[2017-08-13] MEDS: amLODIPine 5 MG Tab PO SCH (08:19)
[2017-08-13] MEDS: Omeprazole 20 MG Cap.CR PO SCH (08:19)
[2017-08-13] MEDS: Calcium Carbonate/Vitamin D3 1500 MG-400 Units Tab PO SCH ×2 (08:19→18:25)
[2017-08-13] MEDS: Lisinopril 10 MG Tab PO SCH (08:20)
[2017-08-13] MEDS: Enoxaparin 40 MG/0.4 ML Syringe SUBCUT SCH (08:36)
[2017-08-13] MEDS: Nystatin Topical Powder 15 GM Bottle TOP SCH ×2 (08:37→19:54)
[2017-08-13] MEDS: Simvastatin 40 MG Tab PO SCH (19:50)
[2017-08-13] MEDS: Calcitonin (Salmon) Nasal Spray 3.7 ML Bottle NAS SCH (19:52)
[2017-08-13] MEDS: Latanoprost 0.005% Ophth Soln 2.5 ML Bottle EYEBOTH SCH (19:57)
[2017-08-14] MEDS: Ferrous Sulfate 325 MG Tab PO SCH ×2 (07:51→19:59)
[2017-08-14] MEDS: Calcium Carbonate/Vitamin D3 1500 MG-400 Units Tab PO SCH ×2 (07:51→17:49)
[2017-08-14] MEDS: Sennosides 8.6 MG Tab PO SCH (07:51)
[2017-08-14] MEDS: Docusate Sodium 100 MG Cap PO SCH ×2 (07:51→19:59)
[2017-08-14] MEDS: amLODIPine 5 MG Tab PO SCH (07:51)
[2017-08-14] MEDS: Omeprazole 20 MG Cap.CR PO SCH (07:51)
[2017-08-14] MEDS: Lisinopril 10 MG Tab PO SCH (07:51)
[2017-08-14] MEDS: Enoxaparin 40 MG/0.4 ML Syringe SUBCUT SCH (07:52)
[2017-08-14] MEDS: Ascorbic Acid 500 MG Tab PO SCH ×2 (07:52→17:49)
[2017-08-14] MEDS: Acetaminophen 500 MG Tab PO SCH ×4 (07:52→20:00)
[2017-08-14] MEDS: Nystatin Topical Powder 15 GM Bottle TOP SCH ×2 (07:55→20:00)
[2017-08-14] MEDS: Simvastatin 40 MG Tab PO SCH (19:59)
[2017-08-14] MEDS: Calcitonin (Salmon) Nasal Spray 3.7 ML Bottle NAS SCH (20:01)
[2017-08-14] MEDS: Latanoprost 0.005% Ophth Soln 2.5 ML Bottle EYEBOTH SCH (20:02)
[2017-08-15] MEDS: Acetaminophen/HYDROcodone 325-5 MG Tab PO PRN (02:45)
[2017-08-15] MEDS: Ferrous Sulfate 325 MG Tab PO SCH ×2 (07:30→19:37)
[2017-08-15] MEDS: Omeprazole 20 MG Cap.CR PO SCH (07:30)
[2017-08-15] MEDS: Acetaminophen 500 MG Tab PO SCH ×4 (07:30→19:37)
[2017-08-15] MEDS: Ascorbic Acid 500 MG Tab PO SCH ×2 (07:31→17:13)
[2017-08-15] MEDS: Sennosides 8.6 MG Tab PO SCH (07:32)
[2017-08-15] MEDS: Docusate Sodium 100 MG Cap PO SCH ×2 (07:32→19:37)
[2017-08-15] MEDS: amLODIPine 5 MG Tab PO SCH (07:32)
[2017-08-15] MEDS: Calcium Carbonate/Vitamin D3 1500 MG-400 Units Tab PO SCH ×2 (07:32→17:12)
[2017-08-15] MEDS: Enoxaparin 40 MG/0.4 ML Syringe SUBCUT SCH (07:33)
[2017-08-15] MEDS: Lisinopril 10 MG Tab PO SCH (07:33)
[2017-08-15] MEDS: Nystatin Topical Powder 15 GM Bottle TOP SCH ×2 (07:36→19:37)
[2017-08-15] MEDS: Simvastatin 40 MG Tab PO SCH (19:36)
[2017-08-15] MEDS: Latanoprost 0.005% Ophth Soln 2.5 ML Bottle EYEBOTH SCH (19:37)
[2017-08-15] MEDS: Calcitonin (Salmon) Nasal Spray 3.7 ML Bottle NAS SCH (19:37)
[2017-08-16] MEDS: Calcium Carbonate/Vitamin D3 1500 MG-400 Units Tab PO SCH ×2 (08:06→17:08)
[2017-08-16] MEDS: Docusate Sodium 100 MG Cap PO SCH ×2 (08:07→20:04)
[2017-08-16] MEDS: Ferrous Sulfate 325 MG Tab PO SCH ×2 (08:07→20:04)
[2017-08-16] MEDS: Nystatin Topical Powder 15 GM Bottle TOP SCH ×2 (08:10→20:04)
[2017-08-16] MEDS: Acetaminophen 500 MG Tab PO SCH ×4 (08:12→20:04)
[2017-08-16] MEDS: Omeprazole 20 MG Cap.CR PO SCH (08:12)
[2017-08-16] MEDS: Ascorbic Acid 500 MG Tab PO SCH ×2 (08:13→17:08)
[2017-08-16] MEDS: Lisinopril 10 MG Tab PO SCH (08:13)
[2017-08-16] MEDS: amLODIPine 5 MG Tab PO SCH (08:13)
[2017-08-16] MEDS: Sennosides 8.6 MG Tab PO SCH (08:13)
[2017-08-16] MEDS: Enoxaparin 40 MG/0.4 ML Syringe SUBCUT SCH (08:14)
[2017-08-16] MEDS ORDERED: Latanoprost 0.005% Ophth Soln 2.5 ML Bottle ONE (10:05)
[2017-08-16] MEDS: Calcitonin (Salmon) Nasal Spray 3.7 ML Bottle NAS SCH (20:02)
[2017-08-16] MEDS: Latanoprost 0.005% Ophth Soln 2.5 ML Bottle EYEBOTH SCH (20:02)
[2017-08-16] MEDS: Simvastatin 40 MG Tab PO SCH (20:04)
[2017-08-17] MEDS: Calcium Carbonate/Vitamin D3 1500 MG-400 Units Tab PO SCH ×2 (08:05→16:43)
[2017-08-17] MEDS: Docusate Sodium 100 MG Cap PO SCH ×2 (08:06→20:52)
[2017-08-17] MEDS: Ferrous Sulfate 325 MG Tab PO SCH ×2 (08:07→20:52)
[2017-08-17] MEDS: Enoxaparin 40 MG/0.4 ML Syringe SUBCUT SCH (08:13)
[2017-08-17] MEDS: amLODIPine 5 MG Tab PO SCH (08:14)
[2017-08-17] MEDS: Nystatin Topical Powder 15 GM Bottle TOP SCH ×2 (08:15→20:52)
[2017-08-17] MEDS: Omeprazole 20 MG Cap.CR PO SCH (08:16)
[2017-08-17] MEDS: Lisinopril 10 MG Tab PO SCH (08:16)
[2017-08-17] MEDS: Sennosides 8.6 MG Tab PO SCH (08:17)
[2017-08-17] MEDS: Acetaminophen 500 MG Tab PO SCH ×4 (08:18→20:52)
[2017-08-17] MEDS: Ascorbic Acid 500 MG Tab PO SCH ×2 (08:18→16:45)
[2017-08-17] MEDS: Simvastatin 40 MG Tab PO SCH (20:52)
[2017-08-17] MEDS: Calcitonin (Salmon) Nasal Spray 3.7 ML Bottle NAS SCH (20:53)
[2017-08-17] MEDS: Latanoprost 0.005% Ophth Soln 2.5 ML Bottle EYEBOTH SCH (20:53)
[2017-08-18] MEDS: Acetaminophen/HYDROcodone 325-5 MG Tab PO PRN (06:30)
[2017-08-18] MEDS: Ascorbic Acid 500 MG Tab PO SCH ×2 (07:28→18:15)
[2017-08-18] MEDS: Sennosides 8.6 MG Tab PO SCH (07:28)
[2017-08-18] MEDS: Calcium Carbonate/Vitamin D3 1500 MG-400 Units Tab PO SCH ×2 (07:30→18:15)
[2017-08-18] MEDS: Omeprazole 20 MG Cap.CR PO SCH (07:30)
[2017-08-18] MEDS: Lisinopril 10 MG Tab PO SCH (07:30)
[2017-08-18] MEDS: amLODIPine 5 MG Tab PO SCH (07:30)
[2017-08-18] MEDS: Ferrous Sulfate 325 MG Tab PO SCH ×2 (07:30→20:10)
[2017-08-18] MEDS: Nystatin Topical Powder 15 GM Bottle TOP SCH ×2 (07:31→20:12)
[2017-08-18] MEDS: Enoxaparin 40 MG/0.4 ML Syringe SUBCUT SCH (07:32)
[2017-08-18] MEDS: Acetaminophen 500 MG Tab PO SCH ×4 (07:37→20:10)
[2017-08-18] MEDS: Docusate Sodium 100 MG Cap PO SCH ×2 (07:38→20:10)
--- NOTE | 2017-08-18 19:19 | PCM.PN ---
- General Info Date of Service: 08/18/17 Subjective Update: Patient was unable to have an Orthopedics appointment today as Dr. Campos was unable to make it to [place]. Patient continues to have pain with the left hip and weakness and decreased mobility of the left arm and shoulder. Timeline of healing could be prolonged due to concerns of the left hip prosthesis and integrity of the prosthesis. Timeline of healing currently is expected to be around 6 months. Functional Status: Reports: Pain Controlled, Tolerating Diet - Review of Systems General: Reports: Weakness HEENT: Reports: No Symptoms Pulmonary: Reports: No Symptoms Cardiovascular: Reports: No Symptoms Gastrointestinal: Reports: No Symptoms Genitourinary: Reports: No Symptoms Musculoskeletal: Reports: Joint Pain Skin: Reports: No Symptoms Neurological: Reports: Difficulty Walking, Weakness, Gait Disturbance Psychiatric: Reports: No Symptoms - Patient Data Vitals - Most Recent: Last Vital Signs Temp 36.5 C 08/18/17 08:00 Pulse 65 08/18/17 08:00 Resp 16 08/18/17 08:00 BP 144/51 H 08/18/17 08:00 Pulse Ox 99 08/18/17 08:00 Weight - Most Recent: 75.614 kg Med Orders - Current: Current Medications Acetaminophen (Tylenol Extra Strength) 500 mg PO QID [facility] Last Admin: 08/18/17 18:11 Dose: Not Given Hydrocodone Bitart/Acetaminophen ([place] 325-5 Mg) 1 - 2 tab PO Q4H PRN PRN Reason: PAIN Last Admin: 08/18/17 06:30 Dose: 1 tab Amlodipine Besylate (Norvasc) 5 mg PO DAILY [facility] Last Admin: 08/18/17 07:30 Dose: 5 mg Ascorbic Acid (Vitamin C) 250 mg PO BIDMEALS [facility] Last Admin: 08/18/17 18:15 Dose: 250 mg Bisacodyl (Dulcolax) 10 mg RECTAL DAILY PRN PRN Reason: Constipation Calcitonin Ten[place] (Miacalcin Nasal [place]) 0 ml MADE[place] DAILY@1999 [facility] Last Admin: 08/17/17 20:53 Dose: 1 sprays(dnu) Calcium Carbonate (Caltrate 600+D 1500 Mg-400 Units) 1 tab PO BIDMEALS [facility] Last Admin: 08/18/17 18:15 Dose: 1 tab Docusate Sodium (Colace) 100 mg PO BID [facility] Last Admin: 08/18/17 07:38 Dose: Not Given Enoxaparin Sodium (Lovenox) 40 mg SUBCUT DAILY [facility] Last Admin: 08/18/17 07:32 Dose: 40 mg Epoetin Nicholas (Procrit) 20,000 units SUBCUT .WEEKLY [facility] Last Admin: 07/26/17 08:40 Dose: 20,000 units Ferrous Sulfate (Ferrous Sulfate) 325 mg PO BID [facility] Last Admin: 08/18/17 07:30 Dose: 325 mg Latanoprost (Xalatan 0.005% Ophth Soln) 2.5 ml EYEBOTH BEDTIME [facility] Lisinopril (Prinivil) 10 mg PO DAILY [facility] Last Admin: 08/18/17 07:30 Dose: 10 mg Magnesium Hydroxide (Milk Of Magnesia) 30 ml PO DAILY PRN PRN Reason: Constipation Last Admin: 08/11/17 08:31 Dose: 30 ml Miscellaneous Information (Remove Patch) 1 ea TRDERM Q7D [facility] Last Admin: 08/12/17 19:39 Dose: 1 ea Butrans 10mcg Patch 1 each TOP Q7D [facility] Last Admin: 08/12/17 20:13 Dose: 1 each Nystatin (Nystop) 0 gm TOP BID [facility] Last Admin: 08/18/17 07:31 Dose: 1 applic Omeprazole (Omeprazole) 20 mg PO DAILY [facility] Last Admin: 08/18/17 07:30 Dose: 20 mg Polyethylene Glycol (Miralax) 17 gm PO DAILY PRN PRN Reason: Constipation Last Admin: 07/23/17 22:00 Dose: 17 gm Senna (Senna) 17.2 mg PO DAILY [facility] Last Admin: 08/18/17 07:28 Dose: 17.2 mg Simvastatin (Zocor) 40 mg PO BEDTIME [facility] Last Admin: 08/17/17 20:52 Dose: 40 mg Discontinued Medications Acetaminophen (Tylenol Extra Strength) 500 mg .ROUTE .STK-MED ONE Stop: 07/29/17 12:01 Acetaminophen (Tylenol Extra Strength) 500 mg .ROUTE .STK-MED ONE Stop: 07/29/17 12:01 Acetaminophen (Tylenol Extra Strength) Confirm Administered Dose 500 mg .ROUTE .STK-MED ONE Stop: 08/04/17 20:23 Last Admin: 08/04/17 20:28 Dose: Not Given Hydrocodone Bitart/Acetaminophen ([place] 325-5 Mg) 3 tab PO BID [facility] Last Admin: 07/24/17 08:51 Dose: 3 tab Hydrocodone Bitart/Acetaminophen ([place] 325-5 Mg) 1 tab PO Q4H PRN PRN Reason: Pain Amlodipine Besylate (Norvasc) 5 mg .ROUTE .STK-MED ONE Stop: 07/29/17 12:01 Ascorbic Acid (Vitamin C) 500 mg .ROUTE .STK-MED ONE Stop: 07/29/17 12:01 Calcitonin [place] (Miacalcin Nasal [place]) 0 ml MADE[place]INE DAILY [facility] Last Admin: 07/28/17 08:24 Dose: Not Given Calcitonin [place] (Miacalcin Nasal [place]) 0 ml [place]INE DAILY [facility] Last Admin: 07/29/17 20:30 Dose: 1 spray Calcium Carbonate (Calcium Carbonate/Vitamin D 1500 Mg-200 Unit) 1 tab PO BIDMEALS [facility] Last Admin: 07/31/17 17:00 Dose: Not Given Docusate Sodium (Colace) 100 mg .ROUTE .STK-MED ONE Stop: 07/29/17 12:01 Docusate Sodium (Colace) Confirm Administered Dose 100 mg .ROUTE .STK-MED ONE Stop: 08/04/17 20:25 Last Admin: 08/04/17 20:28 Dose: Not Given Enoxaparin Sodium (Lovenox) 80 mg SUBCUT DAILY [facility] Enoxaparin Sodium (Lovenox) 40 mg .ROUTE .STK-MED ONE Stop: 07/29/17 12:01 Ferrous Sulfate (Ferrous Sulfate) 325 mg .ROUTE .STK-MED ONE Stop: 07/29/17 12:01 Ferrous Sulfate (Ferrous Sulfate) Confirm Administered Dose 325 mg .ROUTE .STK- MED ONE Stop: 08/04/17 20:24 Last Admin: 08/04/17 20:28 Dose: Not Given Latanoprost (Xalatan 0.005% Ophth Soln) 0 ml EYEBOTH BEDTIME [facility] Last Admin: 08/17/17 20:53 Dose: 1 drop Latanoprost (Xalatan 0.005% Ophth Soln) 2.5 ml .ROUTE .STK-MED ONE Stop: 08/16/17 10:06 Lisinopril (Prinivil) 20 mg PO DAILY [facility] Last Admin: 01/02/18 13:16 Dose: 10 mg Lisinopril (Prinivil) 20 mg .ROUTE .STK-MED ONE Stop: 07/29/17 12:01 Miscellaneous Information (Remove Patch) 1 ea KAROLYNDERM .WEEKLY [facility] Butrans 10mcg Patch 1 each TOP .WEEKLY [facility] Last Admin: 07/29/17 20:45 Dose: 1 each Butrans 10mcg Patch 1 each TOP .WEEKLY [facility] Nystatin (Nystop) Confirm Administered Dose 15 gm .ROUTE .STK-MED ONE Stop: 07/24/17 17:35 Last Admin: 07/24/17 18:43 Dose: Not Given Omeprazole (Omeprazole) 20 mg .ROUTE .STK-MED ONE Stop: 07/29/17 12:01 Senna (Senna) 17.2 mg .ROUTE .STK-MED ONE Stop: 07/29/17 12:01 Simvastatin (Zocor) Confirm Administered Dose 40 mg .ROUTE .STK-MED ONE Stop: 08/04/17 20:23 Last Admin: 08/04/17 20:28 Dose: Not Given Tuberculin PPD (Aplisol) 5 unit IDERM ONETIME ONE Stop: 07/23/17 17:04 Last Admin: 07/23/17 20:23 Dose: 5 unit - Exam General: Alert, Oriented, Cooperative HEENT: Pupils Equal, Pupils Reactive Neck: Supple Lungs: Clear to Auscultation, Normal Respiratory Effort Cardiovascular: Regular Rate, Regular Rhythm GI/Abdominal Exam: Normal Bowel Sounds, Soft, Non-Tender Extremities: Leg Pain Peripheral Pulses: 2+: Dorsalis Pedis (L), Dorsalis Pedis (R) Skin: Warm, Dry, Intact Wound/Incisions: Healing Well - Problem List & Annotations (1) Hip fracture, left SNOMED Code(s): 704546128 Code(s): S72.002A - FRACTURE OF UNSP PART OF NECK OF LEFT FEMUR, INIT Status: Acute Current Visit: Yes Qualifiers: Encounter type: subsequent encounter (2) Left humeral fracture SNOMED Code(s): 85770204 Code(s): S42.302A - UNSP FRACTURE OF SHAFT OF HUMERUS, LEFT ARM, INIT Status: Acute Current Visit: Yes Qualifiers: Encounter type: subsequent encounter Humerus Location: proximal Fracture type: closed Fracture alignment: displaced Fracture healing: with routine healing (3) Left radial fracture SNOMED Code(s): 32822097 Code(s): S52.92XA - UNSP FRACTURE OF LEFT FOREARM, INIT FOR CLOS FX Status : Acute Current Visit: Yes Qualifiers: Encounter type: subsequent encounter Radius location: distal Fracture type: closed Fracture morphology: unspecified fracture morphology Fracture healing: with routine healing Qualified Code(s): S52.502D - Unspecified fracture of the lower end of left radius, subsequent encounter for closed fracture with routine healing (4) Left rib fracture SNOMED Code(s): 75674853 Code(s): S22.32XA - FRACTURE OF ONE RIB, LEFT SIDE, INIT FOR CLOS FX Status : Acute Current Visit: Yes Qualifiers: Rib fracture type: multiple ribs Fracture type: closed Fracture healing: with routine healing (5) Multiple fractures of left upper extremity and ribs SNOMED Code(s): 75933384 Code(s): S42.302A - UNSP FRACTURE OF SHAFT OF HUMERUS, LEFT ARM, INIT; S22.42XA - MULTIPLE FRACTURES OF RIBS, LEFT SIDE, INIT FOR CLOS FX Status: Acute Current Visit: Yes Qualifiers: Encounter type: subsequent encounter - Problem List Review Problem List Initiated/Reviewed/Updated: Yes - My Orders Last 24 Hours: My Active Orders 08/18/17 20:00 Latanoprost [Xalatan 0.005% Ophth Soln] 2.5 ml EYEBOTH BEDTIME - Plan Plan:: Plan of care for PT/OT therapy. Orthopedics f/u here in the hospital. Will plan for Jose A or Dr. Campos f/u. Medications continued. No changes at this time. 08/18/17 PT setup for Wed with Jose A as Dr. Campos unable to come to [facility]. Patient will be sent via Transport and back for further management plan.
[2017-08-18] MEDS: Simvastatin 40 MG Tab PO SCH (20:10)
[2017-08-18] MEDS: Calcitonin (Salmon) Nasal Spray 3.7 ML Bottle NAS SCH (20:15)
[2017-08-18] MEDS: Latanoprost 0.005% Ophth Soln 2.5 ML Bottle EYEBOTH SCH (20:16)
[2017-08-19] MEDS: Calcium Carbonate/Vitamin D3 1500 MG-400 Units Tab PO SCH ×2 (08:11→17:34)
[2017-08-19] MEDS: Ferrous Sulfate 325 MG Tab PO SCH ×2 (08:11→20:53)
[2017-08-19] MEDS: Docusate Sodium 100 MG Cap PO SCH ×2 (08:11→21:11)
[2017-08-19] MEDS: amLODIPine 5 MG Tab PO SCH (08:12)
[2017-08-19] MEDS: Ascorbic Acid 500 MG Tab PO SCH ×2 (08:12→17:34)
[2017-08-19] MEDS: Lisinopril 10 MG Tab PO SCH (08:12)
[2017-08-19] MEDS: Omeprazole 20 MG Cap.CR PO SCH (08:12)
[2017-08-19] MEDS: Sennosides 8.6 MG Tab PO SCH (08:12)
[2017-08-19] MEDS: Nystatin Topical Powder 15 GM Bottle TOP SCH ×2 (08:15→20:54)
[2017-08-19] MEDS: Acetaminophen 500 MG Tab PO SCH ×4 (08:16→20:53)
[2017-08-19] MEDS: Enoxaparin 40 MG/0.4 ML Syringe SUBCUT SCH (08:16)
[2017-08-19] MEDS: Simvastatin 40 MG Tab PO SCH (20:52)
[2017-08-19] MEDS: Calcitonin (Salmon) Nasal Spray 3.7 ML Bottle NAS SCH (20:53)
[2017-08-19] MEDS: Latanoprost 0.005% Ophth Soln 2.5 ML Bottle EYEBOTH SCH (20:54)
[2017-08-19] MEDS: BUTRANS 10 MCG TOP SCH (21:09)
[2017-08-20] MEDS: Calcium Carbonate/Vitamin D3 1500 MG-400 Units Tab PO SCH ×3 (06:32→17:01)
[2017-08-20] MEDS: Acetaminophen/HYDROcodone 325-5 MG Tab PO PRN ×2 (06:34→16:50)
[2017-08-20] MEDS: Ferrous Sulfate 325 MG Tab PO SCH ×3 (06:37→19:37)
[2017-08-20] MEDS: Ascorbic Acid 500 MG Tab PO SCH ×3 (06:37→17:01)
[2017-08-20] MEDS: Enoxaparin 40 MG/0.4 ML Syringe SUBCUT SCH ×2 (06:38→07:07)
[2017-08-20] MEDS: amLODIPine 5 MG Tab PO SCH ×2 (06:42→07:07)
[2017-08-20] MEDS: Omeprazole 20 MG Cap.CR PO SCH ×2 (06:42→10:44)
[2017-08-20] MEDS: Lisinopril 10 MG Tab PO SCH ×2 (06:42→07:03)
[2017-08-20] MEDS: Nystatin Topical Powder 15 GM Bottle TOP SCH ×2 (07:02→20:00)
[2017-08-20] MEDS: Acetaminophen 500 MG Tab PO SCH ×4 (07:02→20:00)
[2017-08-20] MEDS: Sennosides 8.6 MG Tab PO SCH (07:03)
[2017-08-20] MEDS: Docusate Sodium 100 MG Cap PO SCH ×2 (07:03→19:37)
[2017-08-20] MEDS: Simvastatin 40 MG Tab PO SCH (19:37)
[2017-08-20] MEDS: Calcitonin (Salmon) Nasal Spray 3.7 ML Bottle NAS SCH (19:38)
[2017-08-20] MEDS: Oxybutynin 5 MG Tab.ER PO SCH (19:38)
[2017-08-20] MEDS: Latanoprost 0.005% Ophth Soln 2.5 ML Bottle EYEBOTH SCH (19:39)
[2017-08-21] MEDS: Omeprazole 20 MG Cap.CR PO SCH (07:29)
[2017-08-21] MEDS: Sennosides 8.6 MG Tab PO SCH (07:30)
[2017-08-21] MEDS: amLODIPine 5 MG Tab PO SCH (07:31)
[2017-08-21] MEDS: Acetaminophen 500 MG Tab PO SCH ×4 (07:32→19:14)
[2017-08-21] MEDS: Ascorbic Acid 500 MG Tab PO SCH ×2 (07:32→17:20)
[2017-08-21] MEDS: Ferrous Sulfate 325 MG Tab PO SCH ×2 (07:33→19:14)
[2017-08-21] MEDS: Lisinopril 10 MG Tab PO SCH (07:33)
[2017-08-21] MEDS: Calcium Carbonate/Vitamin D3 1500 MG-400 Units Tab PO SCH ×2 (07:33→17:20)
[2017-08-21] MEDS: Docusate Sodium 100 MG Cap PO SCH ×2 (07:33→19:15)
[2017-08-21] MEDS: Enoxaparin 40 MG/0.4 ML Syringe SUBCUT SCH (07:34)
[2017-08-21] MEDS: Nystatin Topical Powder 15 GM Bottle TOP SCH ×2 (07:35→19:16)
[2017-08-21] MEDS: Acetaminophen/HYDROcodone 325-5 MG Tab PO PRN ×2 (07:36→13:25)
[2017-08-21] MEDS: Oxybutynin 5 MG Tab.ER PO SCH (19:14)
[2017-08-21] MEDS: Simvastatin 40 MG Tab PO SCH (19:14)
[2017-08-21] MEDS: Calcitonin (Salmon) Nasal Spray 3.7 ML Bottle NAS SCH (19:15)
[2017-08-21] MEDS: Latanoprost 0.005% Ophth Soln 2.5 ML Bottle EYEBOTH SCH (19:16)
[2017-08-21] MEDS: Polyethylene Glycol 3350 Powder 17 GM Packet PO PRN (19:17)
[2017-08-22] MEDS: Enoxaparin 40 MG/0.4 ML Syringe SUBCUT SCH (07:24)
[2017-08-22] MEDS: Sennosides 8.6 MG Tab PO SCH (07:24)
[2017-08-22] MEDS: Ferrous Sulfate 325 MG Tab PO SCH ×2 (07:25→19:47)
[2017-08-22] MEDS: Docusate Sodium 100 MG Cap PO SCH ×2 (07:25→19:45)
[2017-08-22] MEDS: Calcium Carbonate/Vitamin D3 1500 MG-400 Units Tab PO SCH ×2 (07:25→17:34)
[2017-08-22] MEDS: Ascorbic Acid 500 MG Tab PO SCH ×2 (07:25→17:34)
[2017-08-22] MEDS: Acetaminophen 500 MG Tab PO SCH ×4 (07:25→19:48)
[2017-08-22] MEDS: amLODIPine 5 MG Tab PO SCH (07:26)
[2017-08-22] MEDS: Lisinopril 10 MG Tab PO SCH (07:26)
[2017-08-22] MEDS: Omeprazole 20 MG Cap.CR PO SCH (07:26)
[2017-08-22] MEDS: Acetaminophen/HYDROcodone 325-5 MG Tab PO PRN ×2 (07:30→19:46)
[2017-08-22] MEDS: Nystatin Topical Powder 15 GM Bottle TOP SCH ×2 (07:35→19:55)
[2017-08-22] MEDS: Oxybutynin 5 MG Tab.ER PO SCH (19:47)
[2017-08-22] MEDS: Simvastatin 40 MG Tab PO SCH (19:48)
[2017-08-22] MEDS: Polyethylene Glycol 3350 Powder 17 GM Packet PO PRN (19:50)
[2017-08-22] MEDS: Latanoprost 0.005% Ophth Soln 2.5 ML Bottle EYEBOTH SCH (19:55)
[2017-08-22] MEDS: Calcitonin (Salmon) Nasal Spray 3.7 ML Bottle NAS SCH (19:56)
[2017-08-23] MEDS: Enoxaparin 40 MG/0.4 ML Syringe SUBCUT SCH (07:39)
[2017-08-23] MEDS: Omeprazole 20 MG Cap.CR PO SCH (07:39)
[2017-08-23] MEDS: Ascorbic Acid 500 MG Tab PO SCH ×2 (07:40→17:38)
[2017-08-23] MEDS: Acetaminophen 500 MG Tab PO SCH ×4 (07:41→20:08)
[2017-08-23] MEDS: Sennosides 8.6 MG Tab PO SCH (07:41)
[2017-08-23] MEDS: Docusate Sodium 100 MG Cap PO SCH ×2 (07:42→20:08)
[2017-08-23] MEDS: Ferrous Sulfate 325 MG Tab PO SCH ×2 (07:42→20:08)
[2017-08-23] MEDS: Calcium Carbonate/Vitamin D3 1500 MG-400 Units Tab PO SCH ×2 (07:42→17:38)
[2017-08-23] MEDS: Nystatin Topical Powder 15 GM Bottle TOP SCH ×2 (08:06→20:00)
[2017-08-23] MEDS: amLODIPine 5 MG Tab PO SCH (08:06)
[2017-08-23] MEDS: Lisinopril 10 MG Tab PO SCH (08:06)
[2017-08-23] MEDS: Magnesium Hydroxide 400 MG/5 ML Susp 30 ML Cup PO PRN (08:26)
[2017-08-23] MEDS: Latanoprost 0.005% Ophth Soln 2.5 ML Bottle EYEBOTH SCH (20:00)
[2017-08-23] MEDS: Calcitonin (Salmon) Nasal Spray 3.7 ML Bottle NAS SCH (20:00)
[2017-08-23] MEDS: Simvastatin 40 MG Tab PO SCH (20:08)
[2017-08-23] MEDS: Oxybutynin 5 MG Tab.ER PO SCH (20:08)
[2017-08-24] MEDS: Ferrous Sulfate 325 MG Tab PO SCH ×2 (07:39→20:00)
[2017-08-24] MEDS: Calcium Carbonate/Vitamin D3 1500 MG-400 Units Tab PO SCH ×2 (07:39→16:58)
[2017-08-24] MEDS: Omeprazole 20 MG Cap.CR PO SCH (07:39)
[2017-08-24] MEDS: Docusate Sodium 100 MG Cap PO SCH ×2 (07:39→20:48)
[2017-08-24] MEDS: Lisinopril 10 MG Tab PO SCH (07:39)
[2017-08-24] MEDS: Acetaminophen 500 MG Tab PO SCH ×4 (07:39→20:49)
[2017-08-24] MEDS: Sennosides 8.6 MG Tab PO SCH (07:39)
[2017-08-24] MEDS: amLODIPine 5 MG Tab PO SCH (07:40)
[2017-08-24] MEDS: Ascorbic Acid 500 MG Tab PO SCH ×2 (07:40→16:58)
[2017-08-24] MEDS: Enoxaparin 40 MG/0.4 ML Syringe SUBCUT SCH (07:40)
[2017-08-24] MEDS: Nystatin Topical Powder 15 GM Bottle TOP SCH ×2 (07:41→21:27)
[2017-08-24] MEDS: Latanoprost 0.005% Ophth Soln 2.5 ML Bottle EYEBOTH SCH (20:05)
[2017-08-24] MEDS: Calcitonin (Salmon) Nasal Spray 3.7 ML Bottle NAS SCH (20:21)
[2017-08-24] MEDS: Simvastatin 40 MG Tab PO SCH (20:49)
[2017-08-24] MEDS: Oxybutynin 5 MG Tab.ER PO SCH (20:50)
[2017-08-25] MEDS: Docusate Sodium 100 MG Cap PO SCH ×2 (07:48→19:28)
[2017-08-25] MEDS: Calcium Carbonate/Vitamin D3 1500 MG-400 Units Tab PO SCH ×2 (07:48→16:47)
[2017-08-25] MEDS: amLODIPine 5 MG Tab PO SCH (07:49)
[2017-08-25] MEDS: Ferrous Sulfate 325 MG Tab PO SCH ×2 (07:49→19:27)
[2017-08-25] MEDS: Omeprazole 20 MG Cap.CR PO SCH (07:50)
[2017-08-25] MEDS: Lisinopril 10 MG Tab PO SCH (07:50)
[2017-08-25] MEDS: Sennosides 8.6 MG Tab PO SCH (07:50)
[2017-08-25] MEDS: Ascorbic Acid 500 MG Tab PO SCH ×2 (07:51→16:47)
[2017-08-25] MEDS: Acetaminophen 500 MG Tab PO SCH ×4 (07:52→19:28)
[2017-08-25] MEDS: Nystatin Topical Powder 15 GM Bottle TOP SCH ×2 (07:52→20:00)
[2017-08-25] MEDS: Enoxaparin 40 MG/0.4 ML Syringe SUBCUT SCH (07:53)
[2017-08-25] MEDS: Acetaminophen/HYDROcodone 325-5 MG Tab PO PRN (08:34)
[2017-08-25] MEDS ORDERED: EPOETIN ALFA 10000 UNIT/1 ML SUBCUT SCH (12:00)
[2017-08-25] MEDS: Oxybutynin 5 MG Tab.ER PO SCH (19:27)
[2017-08-25] MEDS: Simvastatin 40 MG Tab PO SCH (19:27)
[2017-08-25] MEDS: Calcitonin (Salmon) Nasal Spray 3.7 ML Bottle NAS SCH (19:32)
[2017-08-25] MEDS: Latanoprost 0.005% Ophth Soln 2.5 ML Bottle EYEBOTH SCH (19:33)
[2017-08-26] MEDS: Acetaminophen/HYDROcodone 325-5 MG Tab PO PRN ×2 (04:48→20:48)
[2017-08-26] MEDS: Docusate Sodium 100 MG Cap PO SCH ×2 (07:30→20:48)
[2017-08-26] MEDS: Acetaminophen 500 MG Tab PO SCH ×4 (07:30→21:05)
[2017-08-26] MEDS: Calcium Carbonate/Vitamin D3 1500 MG-400 Units Tab PO SCH ×2 (07:31→16:54)
[2017-08-26] MEDS: Lisinopril 10 MG Tab PO SCH (07:31)
[2017-08-26] MEDS: Ferrous Sulfate 325 MG Tab PO SCH ×2 (07:31→20:48)
[2017-08-26] MEDS: Omeprazole 20 MG Cap.CR PO SCH (07:31)
[2017-08-26] MEDS: Ascorbic Acid 500 MG Tab PO SCH ×2 (07:31→16:54)
[2017-08-26] MEDS: amLODIPine 5 MG Tab PO SCH (07:31)
[2017-08-26] MEDS: Sennosides 8.6 MG Tab PO SCH (07:31)
[2017-08-26] MEDS: Enoxaparin 40 MG/0.4 ML Syringe SUBCUT SCH (07:32)
[2017-08-26] MEDS: Nystatin Topical Powder 15 GM Bottle TOP SCH ×2 (07:33→21:08)
[2017-08-26] MEDS: Oxybutynin 5 MG Tab.ER PO SCH (20:48)
[2017-08-26] MEDS: Simvastatin 40 MG Tab PO SCH (20:48)
[2017-08-26] MEDS: Latanoprost 0.005% Ophth Soln 2.5 ML Bottle EYEBOTH SCH (21:03)
[2017-08-26] MEDS: Calcitonin (Salmon) Nasal Spray 3.7 ML Bottle NAS SCH (21:04)
[2017-08-27] MEDS: Ascorbic Acid 500 MG Tab PO SCH ×2 (08:14→17:19)
[2017-08-27] MEDS: Sennosides 8.6 MG Tab PO SCH (08:15)
[2017-08-27] MEDS: Ferrous Sulfate 325 MG Tab PO SCH ×2 (08:16→20:24)
[2017-08-27] MEDS: Lisinopril 10 MG Tab PO SCH (08:16)
[2017-08-27] MEDS: Calcium Carbonate/Vitamin D3 1500 MG-400 Units Tab PO SCH (08:16)
[2017-08-27] MEDS: Docusate Sodium 100 MG Cap PO SCH ×2 (08:17→20:24)
[2017-08-27] MEDS: Omeprazole 20 MG Cap.CR PO SCH (08:17)
[2017-08-27] MEDS: Nystatin Topical Powder 15 GM Bottle TOP SCH (08:17)
[2017-08-27] MEDS: Acetaminophen 500 MG Tab PO SCH ×4 (08:18→20:24)
[2017-08-27] MEDS: amLODIPine 5 MG Tab PO SCH (08:19)
--- NOTE | 2017-08-27 08:59 | PCM.PN ---
- General Info Date of Service: 08/27/17 Subjective Update: Patient doing well and has no concerns. She is now full weight bearing as tolerated and working with PT/OT daily. Denies any issues today. Functional Status: Reports: Pain Controlled, Tolerating Diet, Ambulating - Review of Systems General: Reports: Weakness HEENT: Reports: No Symptoms Pulmonary: Reports: No Symptoms Cardiovascular: Reports: No Symptoms Gastrointestinal: Reports: No Symptoms Genitourinary: Reports: No Symptoms Musculoskeletal: Reports: Leg Pain Skin: Reports: No Symptoms Neurological: Reports: No Symptoms - Patient Data Vitals - Most Recent: Last Vital Signs Temp 36.6 C 08/26/17 08:00 Pulse 63 08/26/17 08:00 Resp 18 08/26/17 08:00 BP 126/51 L 08/26/17 08:00 Pulse Ox 99 08/26/17 08:00 Weight - Most Recent: 75.841 kg Lab Results Last 24 Hours: Laboratory Results - last 24 hr 08/26/17 08/26/17 Range/Units 14:40 14:40 WBC 7.9 D (4.0-11.0) K/uL RBC 3.82 (3.80-5.80) M/uL Hgb 11.8 D (11.5-16.5) g/dL Hct 35.6 L (37.0-47.0) % MCV 93 (76-96) fL MCH 30.9 (27.0-32.0) pg MCHC 33.1 (31.0-35.0) g/dL RDW 14.8 (11.0-16.0) % Plt Count 238 D (150-500) K/uL MPV 9.3 (6.0-10.0) fL Neut % (Auto) 69.7 (45.0-70.0) % Lymph % (Auto) 20.0 (20.0-40.0) % Burnett % (Auto) 8.0 (3.0-10.0) % Eos % (Auto) 1.9 (1.0-5.0) % Baso % (Auto) 0.4 (0.0-0.5) % Neut # (Auto) 5.50 (2.00-7.50) K/uL Lymph # (Auto) 1.58 (1.50-4.00) K/uL Burnett # (Auto) 0.63 (0.20-0.80) K/uL Eos # (Auto) 0.15 (0.04-0.40) K/uL Baso # (Auto) 0.03 (0.02-0.10) K/uL Sodium 139 (136-145) mmol/L Potassium 4.3 (3.5-5.1) mmol/L Chloride 102 (98-107) mmol/L Carbon Dioxide 31.1 (21.0-32.0) mmol/L Anion Gap 10.2 (5.0-15.0) mmol/L BUN 20 (8-26) mg/dL Creatinine 0.83 (0.55-1.02) mg/dL Est Cr Clr Drug Dosing 49.07 mL/min Estimated GFR (MDRD) > 60 (>60) MLS/MIN BUN/Creatinine Ratio 24.1 (6-25) Glucose 129 H (74-100) mg/dL Calcium 11.4 H (8.5-10.1) mg/dL Med Orders - Current: Current Medications Acetaminophen (Tylenol Extra Strength) 500 mg PO QID [facility] Last Admin: 08/27/17 08:18 Dose: Not Given Hydrocodone Bitart/Acetaminophen ([employer] 325-5 Mg) 1 - 2 tab PO Q4H PRN PRN Reason: PAIN Last Admin: 08/26/17 20:48 Dose: 1 tab Amlodipine Besylate (Norvasc) 5 mg PO DAILY [facility] Last Admin: 08/27/17 08:19 Dose: Not Given Ascorbic Acid (Vitamin C) 250 mg PO BIDMEALS [facility] Last Admin: 08/27/17 08:14 Dose: 250 mg Bisacodyl (Dulcolax) 10 mg RECTAL DAILY PRN PRN Reason: Constipation Buprenorphine (Butrans) 10 mcg TD Q7D [facility] Last Admin: 08/26/17 21:04 Dose: 10 mcg Calcitonin [place] (Miacalcin Nasal [place]) 0 ml MADELE[place] DAILY@1999 [facility] Last Admin: 08/26/17 21:04 Dose: 1 sprays(dnu) Calcium Carbonate (Caltrate 600+D 1500 Mg-400 Units) 1 tab PO BIDMEALS [facility] Last Admin: 08/27/17 08:16 Dose: 1 tab Docusate Sodium (Colace) 100 mg PO BID [facility] Last Admin: 08/27/17 08:17 Dose: 100 mg Epoetin Nicholas (Procrit) 20,000 units SUBCUT Mo [facility] Last Admin: 08/25/17 12:13 Dose: 20,000 units Ferrous Sulfate (Ferrous Sulfate) 325 mg PO BID [facility] Last Admin: 08/27/17 08:16 Dose: 325 mg Latanoprost (Xalatan 0.005% Ophth Soln) 2.5 ml EYEBOTH BEDTIME [facility] Last Admin: 08/26/17 21:03 Dose: 1 drop Lisinopril (Prinivil) 10 mg PO DAILY [facility] Last Admin: 08/27/17 08:16 Dose: 10 mg Magnesium Hydroxide (Milk Of Magnesia) 30 ml PO DAILY PRN PRN Reason: Constipation Last Admin: 08/23/17 08:26 Dose: 30 ml Miscellaneous Information (Remove Patch) 1 ea TRDERM Q7D [facility] Last Admin: 08/26/17 21:04 Dose: 1 ea Nystatin (Nystop) 0 gm TOP BID [facility] Last Admin: 08/27/17 08:17 Dose: Not Given Omeprazole (Omeprazole) 20 mg PO DAILY [facility] Last Admin: 08/27/17 08:17 Dose: 20 mg Oxybutynin Chloride (Oxybutynin Er) 5 mg PO BEDTIME [facility] Last Admin: 08/26/17 20:48 Dose: 5 mg Polyethylene Glycol (Miralax) 17 gm PO DAILY PRN PRN Reason: Constipation Last Admin: 08/22/17 19:50 Dose: 17 gm Senna (Senna) 17.2 mg PO DAILY [facility] Last Admin: 08/27/17 08:15 Dose: 17.2 mg Simvastatin (Zocor) 40 mg PO BEDTIME [facility] Last Admin: 08/26/17 20:48 Dose: 40 mg Discontinued Medications Acetaminophen (Tylenol Extra Strength) 500 mg .ROUTE .STK-MED ONE Stop: 07/29/17 12:01 Acetaminophen (Tylenol Extra Strength) 500 mg .ROUTE .STK-MED ONE Stop: 07/29/17 12:01 Acetaminophen (Tylenol Extra Strength) Confirm Administered Dose 500 mg .ROUTE .STK-MED ONE Stop: 08/04/17 20:23 Last Admin: 08/04/17 20:28 Dose: Not Given Hydrocodone Bitart/Acetaminophen ([employer] 325-5 Mg) 3 tab PO BID [facility] Last Admin: 07/24/17 08:51 Dose: 3 tab Hydrocodone Bitart/Acetaminophen ([employer] 325-5 Mg) 1 tab PO Q4H PRN PRN Reason: Pain Amlodipine Besylate (Norvasc) 5 mg .ROUTE .STK-MED ONE Stop: 07/29/17 12:01 Ascorbic Acid (Vitamin C) 500 mg .ROUTE .STK-MED ONE Stop: 07/29/17 12:01 Calcitonin [place] (Miacalcin Nasal [place]) 0 ml MADELEINE DAILY [facility] Last Admin: 07/28/17 08:24 Dose: Not Given Calcitonin [place] (Miacalcin Nasal [place]) 0 ml MADELEINE DAILY [facility] Last Admin: 07/29/17 20:30 Dose: 1 spray Calcium Carbonate (Calcium Carbonate/Vitamin D 1500 Mg-200 Unit) 1 tab PO BIDMEALS [facility] Last Admin: 07/31/17 17:00 Dose: Not Given Docusate Sodium (Colace) 100 mg .ROUTE .STK-MED ONE Stop: 07/29/17 12:01 Docusate Sodium (Colace) Confirm Administered Dose 100 mg .ROUTE .STK-MED ONE Stop: 08/04/17 20:25 Last Admin: 08/04/17 20:28 Dose: Not Given Enoxaparin Sodium (Lovenox) 80 mg SUBCUT DAILY [facility] Enoxaparin Sodium (Lovenox) 40 mg SUBCUT DAILY [facility] Last Admin: 08/26/17 07:32 Dose: 40 mg Enoxaparin Sodium (Lovenox) 40 mg .ROUTE .STK-MED ONE Stop: 07/29/17 12:01 Epoetin Nicholas (Procrit) 20,000 units SUBCUT .WEEKLY [facility] Last Admin: 07/26/17 08:40 Dose: 20,000 units Ferrous Sulfate (Ferrous Sulfate) 325 mg .ROUTE .STK-MED ONE Stop: 07/29/17 12:01 Ferrous Sulfate (Ferrous Sulfate) Confirm Administered Dose 325 mg .ROUTE .STK- MED ONE Stop: 08/04/17 20:24 Last Admin: 08/04/17 20:28 Dose: Not Given Latanoprost (Xalatan 0.005% Ophth Soln) 0 ml EYEBOTH BEDTIME [facility] Last Admin: 08/17/17 20:53 Dose: 1 drop Latanoprost (Xalatan 0.005% Oph Soln) 2.5 ml .ROUTE .STK-MED ONE Stop: 08/16/17 10:06 Lisinopril (Prinivil) 20 mg PO DAILY [facility] Last Admin: 08/12/17 13:16 Dose: 10 mg Lisinopril (Prinivil) 20 mg .ROUTE .STK-MED ONE Stop: 07/29/17 12:01 Miscellaneous Information (Remove Patch) 1 ea TRDERM .WEEKLY [facility] Miscellaneous Information (Remove Patch) 1 ea TRDERM Q7D [facility] Last Admin: 08/19/17 21:09 Dose: 1 ea Butrans 10mcg Patch 1 each TOP .WEEKLY [facility] Last Admin: 07/29/17 20:45 Dose: 1 each Butrans 10mcg Patch 1 each TOP .WEEKLY [facility] Butrans 10mcg Patch 1 each TOP Q7D [facility] Last Admin: 08/19/17 21:09 Dose: 1 each Nystatin (Nystop) Confirm Administered Dose 15 gm .ROUTE .STK-MED ONE Stop: 07/24/17 17:35 Last Admin: 07/24/17 18:43 Dose: Not Given Omeprazole (Omeprazole) 20 mg .ROUTE .STK-MED ONE Stop: 07/29/17 12:01 Senna (Senna) 17.2 mg .ROUTE .STK-MED ONE Stop: 07/29/17 12:01 Simvastatin (Zocor) Confirm Administered Dose 40 mg .ROUTE .STK-MED ONE Stop: 08/04/17 20:23 Last Admin: 08/04/17 20:28 Dose: Not Given Tuberculin PPD (Aplisol) 5 unit IDERM ONETIME ONE Stop: 07/23/17 17:04 Last Admin: 07/23/17 20:23 Dose: 5 unit - Exam General: Alert, Oriented HEENT: Pupils Equal, Pupils Reactive, EOMI Neck: Supple Lungs: Clear to Auscultation, Normal Respiratory Effort Cardiovascular: Regular Rate, Regular Rhythm GI/Abdominal Exam: Normal Bowel Sounds Extremities: Normal Inspection, Leg Pain, Other (left hip pain laterally - at baseline) - Problem List & Annotations (1) Hip fracture, left SNOMED Code(s): 256530403 Code(s): S72.002A - FRACTURE OF UNSP PART OF NECK OF LEFT FEMUR, INIT Status: Acute Current Visit: Yes Qualifiers: Encounter type: subsequent encounter (2) Left humeral fracture SNOMED Code(s): 50015902 Code(s): S42.302A - UNSP FRACTURE OF SHAFT OF HUMERUS, LEFT ARM, INIT Status: Acute Current Visit: Yes Qualifiers: Encounter type: subsequent encounter Humerus Location: proximal Fracture type: closed Fracture alignment: displaced Fracture healing: with routine healing (3) Left radial fracture SNOMED Code(s): 70233137 Code(s): S52.92XA - UNSP FRACTURE OF LEFT FOREARM, INIT FOR CLOS FX Status : Acute Current Visit: Yes Qualifiers: Encounter type: subsequent encounter Radius location: distal Fracture type: closed Fracture morphology: unspecified fracture morphology Fracture healing: with routine healing Qualified Code(s): S52.502D - Unspecified fracture of the lower end of left radius, subsequent encounter for closed fracture with routine healing (4) Left rib fracture SNOMED Code(s): 18832085 Code(s): S22.32XA - FRACTURE OF ONE RIB, LEFT SIDE, INIT FOR CLOS FX Status : Acute Current Visit: Yes Qualifiers: Rib fracture type: multiple ribs Fracture type: closed Fracture healing: with routine healing (5) Multiple fractures of left upper extremity and ribs SNOMED Code(s): 06465598 Code(s): S42.302A - UNSP FRACTURE OF SHAFT OF HUMERUS, LEFT ARM, INIT; S22.42XA - MULTIPLE FRACTURES OF RIBS, LEFT SIDE, INIT FOR CLOS FX Status: Acute Current Visit: Yes Qualifiers: Encounter type: subsequent encounter - Problem List Review Problem List Initiated/Reviewed/Updated: Yes - My Orders Last 24 Hours: My Active Orders 08/26/17 20:00 Buprenorphine [Butrans] 10 mcg TD Q7D Remove Patch 1 ea TRDERM Q7D - Plan Plan:: Plan of care for PT/OT therapy. Orthopedics f/u here in the hospital. Will plan for Jose A or Dr. Campos f/u. Medications continued. No changes at this time. 08/18/17 PT setup for Wed with Jose A as Dr. Campos unable to come to [facility]. Patient will be sent via Transport and back for further management plan. 08/26/17 Patient will continue with PT/OT as directed by ortho. New orders are for patient to be full weight bearing from Ortho. We will continue current rehabilitation and pain management.
[2017-08-27] MEDS ORDERED: Nystatin Topical Powder 15 GM Bottle TOP PRN (09:18)
[2017-08-27] MEDS: Acetaminophen/HYDROcodone 325-5 MG Tab PO PRN ×2 (10:09→14:14)
[2017-08-27] MEDS: Oxybutynin 5 MG Tab.ER PO SCH (20:24)
[2017-08-27] MEDS: Simvastatin 40 MG Tab PO SCH (20:24)
[2017-08-27] MEDS: Latanoprost 0.005% Ophth Soln 2.5 ML Bottle EYEBOTH SCH (20:25)
[2017-08-27] MEDS: Calcitonin (Salmon) Nasal Spray 3.7 ML Bottle NAS SCH (20:25)
[2017-08-28] MEDS: Omeprazole 20 MG Cap.CR PO SCH (07:41)
[2017-08-28] MEDS: Sennosides 8.6 MG Tab PO SCH (07:41)
[2017-08-28] MEDS: Ferrous Sulfate 325 MG Tab PO SCH ×2 (07:41→20:35)
[2017-08-28] MEDS: Docusate Sodium 100 MG Cap PO SCH ×2 (07:41→20:34)
[2017-08-28] MEDS: Ascorbic Acid 500 MG Tab PO SCH ×2 (07:42→17:40)
[2017-08-28] MEDS: Lisinopril 10 MG Tab PO SCH (07:45)
[2017-08-28] MEDS: Acetaminophen/HYDROcodone 325-5 MG Tab PO PRN ×2 (07:58→20:38)
[2017-08-28] MEDS: Acetaminophen 500 MG Tab PO SCH ×4 (08:10→20:39)
[2017-08-28] MEDS: Oxybutynin 5 MG Tab.ER PO SCH (20:34)
[2017-08-28] MEDS: Latanoprost 0.005% Ophth Soln 2.5 ML Bottle EYEBOTH SCH (20:34)
[2017-08-28] MEDS: Magnesium Hydroxide 400 MG/5 ML Susp 30 ML Cup PO PRN (20:35)
[2017-08-28] MEDS: Simvastatin 40 MG Tab PO SCH (20:35)
[2017-08-28] MEDS: Calcitonin (Salmon) Nasal Spray 3.7 ML Bottle NAS SCH (20:39)
[2017-08-29] MEDS: Docusate Sodium 100 MG Cap PO SCH ×2 (07:37→20:25)
[2017-08-29] MEDS: Lisinopril 10 MG Tab PO SCH (07:37)
[2017-08-29] MEDS: Omeprazole 20 MG Cap.CR PO SCH (07:37)
[2017-08-29] MEDS: Ascorbic Acid 500 MG Tab PO SCH ×2 (07:38→16:48)
[2017-08-29] MEDS: Sennosides 8.6 MG Tab PO SCH (07:38)
[2017-08-29] MEDS: Ferrous Sulfate 325 MG Tab PO SCH ×2 (07:38→20:25)
[2017-08-29] MEDS: Acetaminophen 500 MG Tab PO SCH ×4 (07:39→20:25)
[2017-08-29] MEDS: Calcitonin (Salmon) Nasal Spray 3.7 ML Bottle NAS SCH (20:25)
[2017-08-29] MEDS: Simvastatin 40 MG Tab PO SCH (20:25)
[2017-08-29] MEDS: Oxybutynin 5 MG Tab.ER PO SCH (20:25)
[2017-08-29] MEDS: Latanoprost 0.005% Ophth Soln 2.5 ML Bottle EYEBOTH SCH (20:26)
[2017-08-30] MEDS: Docusate Sodium 100 MG Cap PO SCH ×2 (08:26→21:10)
[2017-08-30] MEDS: Omeprazole 20 MG Cap.CR PO SCH (08:26)
[2017-08-30] MEDS: Lisinopril 10 MG Tab PO SCH (08:27)
[2017-08-30] MEDS: Ferrous Sulfate 325 MG Tab PO SCH ×2 (08:37→21:10)
[2017-08-30] MEDS: Sennosides 8.6 MG Tab PO SCH (08:37)
[2017-08-30] MEDS: Acetaminophen 500 MG Tab PO SCH ×5 (08:38→21:10)
[2017-08-30] MEDS: Ascorbic Acid 500 MG Tab PO SCH ×2 (08:40→17:30)
[2017-08-30] MEDS: Acetaminophen/HYDROcodone 325-5 MG Tab PO PRN (12:06)
[2017-08-30] MEDS: Simvastatin 40 MG Tab PO SCH (21:09)
[2017-08-30] MEDS: Latanoprost 0.005% Ophth Soln 2.5 ML Bottle EYEBOTH SCH (21:10)
[2017-08-30] MEDS: Oxybutynin 5 MG Tab.ER PO SCH (21:10)
[2017-08-30] MEDS: Calcitonin (Salmon) Nasal Spray 3.7 ML Bottle NAS SCH (21:10)
[2017-08-31] MEDS: Ferrous Sulfate 325 MG Tab PO SCH ×2 (08:24→19:54)
[2017-08-31] MEDS: Docusate Sodium 100 MG Cap PO SCH ×2 (08:24→19:55)
[2017-08-31] MEDS: Sennosides 8.6 MG Tab PO SCH (08:24)
[2017-08-31] MEDS: Omeprazole 20 MG Cap.CR PO SCH (08:24)
[2017-08-31] MEDS: Ascorbic Acid 500 MG Tab PO SCH ×2 (08:25→19:32)
[2017-08-31] MEDS: Acetaminophen 500 MG Tab PO SCH ×4 (08:26→20:00)
[2017-08-31] MEDS: Lisinopril 10 MG Tab PO SCH (08:26)
[2017-08-31] MEDS: Calcitonin (Salmon) Nasal Spray 3.7 ML Bottle NAS SCH (19:53)
[2017-08-31] MEDS: Latanoprost 0.005% Ophth Soln 2.5 ML Bottle EYEBOTH SCH (19:54)
[2017-08-31] MEDS: Oxybutynin 5 MG Tab.ER PO SCH (19:54)
[2017-08-31] MEDS: Simvastatin 40 MG Tab PO SCH (19:54)
[2017-09-01] MEDS: Sennosides 8.6 MG Tab PO SCH (07:31)
[2017-09-01] MEDS: Omeprazole 20 MG Cap.CR PO SCH (07:32)
[2017-09-01] MEDS: Docusate Sodium 100 MG Cap PO SCH ×2 (07:32→21:05)
[2017-09-01] MEDS: Ascorbic Acid 500 MG Tab PO SCH ×2 (07:35→17:00)
[2017-09-01] MEDS: Ferrous Sulfate 325 MG Tab PO SCH ×2 (07:35→21:05)
[2017-09-01] MEDS: Lisinopril 10 MG Tab PO SCH (07:37)
[2017-09-01] MEDS: Acetaminophen/HYDROcodone 325-5 MG Tab PO PRN ×2 (08:19→13:14)
[2017-09-01] MEDS: Acetaminophen 500 MG Tab PO SCH ×3 (14:52→21:06)
--- NOTE | 2017-09-01 15:29 | PCM.PN ---
- General Info Date of Service: 09/01/17 Subjective Update: Patient denies any concerns. She states she has some continued pain of the left hip laterally and it is always tender when she walks. She has had this and it is a constant pain. Denies any other complaints. Patient is eating well with good BM. She feels well and in good spirits. Functional Status: Reports: Pain Controlled, Tolerating Diet, Ambulating - Review of Systems General: Reports: Weakness HEENT: Reports: No Symptoms Pulmonary: Reports: No Symptoms Cardiovascular: Reports: No Symptoms Gastrointestinal: Reports: No Symptoms Genitourinary: Reports: No Symptoms Musculoskeletal: Reports: Leg Pain, Joint Pain, Other (left hip lateral pain) Neurological: Reports: Weakness - Patient Data Vitals - Most Recent: Last Vital Signs Temp 36.6 C 09/01/17 07:39 Pulse 63 09/01/17 07:39 Resp 16 09/01/17 07:39 BP 153/57 H 09/01/17 07:39 Pulse Ox 98 09/01/17 07:39 Weight - Most Recent: 75.841 kg Med Orders - Current: Current Medications Acetaminophen (Tylenol Extra Strength) 500 mg PO QID [facility] Last Admin: 09/01/17 14:52 Dose: Not Given Hydrocodone Bitart/Acetaminophen ([place] 325-5 Mg) 1 - 2 tab PO Q4H PRN PRN Reason: PAIN Last Admin: 09/01/17 13:14 Dose: 1 tab Ascorbic Acid (Vitamin C) 250 mg PO BIDMEALS [facility] Last Admin: 09/01/17 07:35 Dose: 250 mg Bisacodyl (Dulcolax) 10 mg RECTAL DAILY PRN PRN Reason: Constipation Buprenorphine (Butrans) 10 mcg TD Q7D [facility] Last Admin: 08/26/17 21:04 Dose: 10 mcg Calcitonin [place] (Miacalcin Nasal [place]) 0 ml [place] DAILY@1999 [facility] Last Admin: 08/31/17 19:53 Dose: 1 sprays(dnu) Calcium Carbonate (Caltrate 600+D 1500 Mg-400 Units) 1 tab PO BIDMEALS [facility] Last Admin: 08/27/17 08:16 Dose: 1 tab Docusate Sodium (Colace) 100 mg PO BID [facility] Last Admin: 09/01/17 07:32 Dose: 100 mg Ferrous Sulfate (Ferrous Sulfate) 325 mg PO BID [facility] Last Admin: 09/01/17 07:35 Dose: 325 mg Latanoprost (Xalatan 0.005% Ophth Soln) 2.5 ml EYEBOTH BEDTIME [facility] Last Admin: 08/31/17 19:54 Dose: 1 drop Lisinopril (Prinivil) 10 mg PO DAILY [facility] Last Admin: 09/01/17 07:37 Dose: 10 mg Magnesium Hydroxide (Milk Of Magnesia) 30 ml PO DAILY PRN PRN Reason: Constipation Last Admin: 08/28/17 20:35 Dose: 30 ml Miscellaneous Information (Remove Patch) 1 ea TRDERM Q7D [facility] Last Admin: 08/26/17 21:04 Dose: 1 ea Nystatin (Nystop) 1 gm TOP BID PRN PRN Reason: Rash Omeprazole (Omeprazole) 20 mg PO DAILY [facility] Last Admin: 09/01/17 07:32 Dose: 20 mg Oxybutynin Chloride (Oxybutynin Er) 5 mg PO BEDTIME [facility] Last Admin: 08/31/17 19:54 Dose: 5 mg Polyethylene Glycol (Miralax) 17 gm PO DAILY PRN PRN Reason: Constipation Last Admin: 08/22/17 19:50 Dose: 17 gm Senna (Senna) 17.2 mg PO DAILY [facility] Last Admin: 09/01/17 07:31 Dose: 17.2 mg Simvastatin (Zocor) 40 mg PO BEDTIME [facility] Last Admin: 08/31/17 19:54 Dose: 40 mg Discontinued Medications Acetaminophen (Tylenol Extra Strength) 500 mg .ROUTE .STK-MED ONE Stop: 07/29/17 12:01 Acetaminophen (Tylenol Extra Strength) 500 mg .ROUTE .STK-MED ONE Stop: 07/29/17 12:01 Acetaminophen (Tylenol Extra Strength) Confirm Administered Dose 500 mg .ROUTE .STK-MED ONE Stop: 08/04/17 20:23 Last Admin: 08/04/17 20:28 Dose: Not Given Hydrocodone Bitart/Acetaminophen ([place] 325-5 Mg) 3 tab PO BID [facility] Last Admin: 07/24/17 08:51 Dose: 3 tab Hydrocodone Bitart/Acetaminophen ([place] 325-5 Mg) 1 tab PO Q4H PRN PRN Reason: Pain Amlodipine Besylate (Norvasc) 5 mg PO DAILY [facility] Last Admin: 08/27/17 08:19 Dose: Not Given Amlodipine Besylate (Norvasc) 5 mg .ROUTE .STK-MED ONE Stop: 07/29/17 12:01 Ascorbic Acid (Vitamin C) 500 mg .ROUTE .STK-MED ONE Stop: 07/29/17 12:01 Calcitonin [place] (Miacalcin Nasal [place]) 0 ml [place] DAILY [facility] Last Admin: 07/28/17 08:24 Dose: Not Given Calcitonin [place] (Miacalcin Nasal [place]) 0 ml [place] DAILY [facility] Last Admin: 07/29/17 20:30 Dose: 1 spray Calcium Carbonate (Calcium Carbonate/Vitamin D 1500 Mg-200 Unit) 1 tab PO BIDMEALS [facility] Last Admin: 07/31/17 17:00 Dose: Not Given Docusate Sodium (Colace) 100 mg .ROUTE .STK-MED ONE Stop: 07/29/17 12:01 Docusate Sodium (Colace) Confirm Administered Dose 100 mg .ROUTE .STK-MED ONE Stop: 08/04/17 20:25 Last Admin: 08/04/17 20:28 Dose: Not Given Enoxaparin Sodium (Lovenox) 80 mg SUBCUT DAILY [facility] Enoxaparin Sodium (Lovenox) 40 mg SUBCUT DAILY [facility] Last Admin: 08/26/17 07:32 Dose: 40 mg Enoxaparin Sodium (Lovenox) 40 mg .ROUTE .STK-MED ONE Stop: 07/29/17 12:01 Epoetin [place] (Procrit) 20,000 units SUBCUT .WEEKLY [facility] Last Admin: 07/26/17 08:40 Dose: 20,000 units Epoetin [place] (Procrit) 20,000 units SUBCUT Mo [facility] Last Admin: 08/25/17 12:13 Dose: 20,000 units Ferrous Sulfate (Ferrous Sulfate) 325 mg .ROUTE .STK-MED ONE Stop: 07/29/17 12:01 Ferrous Sulfate (Ferrous Sulfate) Confirm Administered Dose 325 mg .ROUTE .STK- MED ONE Stop: 08/04/17 20:24 Last Admin: 08/04/17 20:28 Dose: Not Given Latanoprost (Xalatan 0.005% Ophth Soln) 0 ml EYEBOTH BEDTIME [facility] Last Admin: 08/17/17 20:53 Dose: 1 drop Latanoprost (Xalatan 0.005% Ophth Soln) 2.5 ml .ROUTE .STK-MED ONE Stop: 08/16/17 10:06 Lisinopril (Prinivil) 20 mg PO DAILY [facility] Last Admin: 08/12/17 13:16 Dose: 10 mg Lisinopril (Prinivil) 20 mg .ROUTE .STK-MED ONE Stop: 07/29/17 12:01 Miscellaneous Information (Remove Patch) 1 ea TRDERM .WEEKLY [facility] Miscellaneous Information (Remove Patch) 1 ea TRDERM Q7D [facility] Last Admin: 08/19/17 21:09 Dose: 1 ea Butrans 10mcg Patch 1 each TOP .WEEKLY [facility] Last Admin: 07/29/17 20:45 Dose: 1 each Butrans 10mcg Patch 1 each TOP .WEEKLY [facility] Butrans 10mcg Patch 1 each TOP Q7D [facility] Last Admin: 08/19/17 21:09 Dose: 1 each Nystatin (Nystop) 0 gm TOP BID [facility] Last Admin: 08/27/17 08:17 Dose: Not Given Nystatin (Nystop) Confirm Administered Dose 15 gm .ROUTE .STK-MED ONE Stop: 07/24/17 17:35 Last Admin: 07/24/17 18:43 Dose: Not Given Omeprazole (Omeprazole) 20 mg .ROUTE .STK-MED ONE Stop: 07/29/17 12:01 Senna (Senna) 17.2 mg .ROUTE .STK-MED ONE Stop: 07/29/17 12:01 Simvastatin (Zocor) Confirm Administered Dose 40 mg .ROUTE .STK-MED ONE Stop: 08/04/17 20:23 Last Admin: 08/04/17 20:28 Dose: Not Given Tuberculin PPD (Aplisol) 5 unit IDERM ONETIME ONE Stop: 07/23/17 17:04 Last Admin: 07/23/17 20:23 Dose: 5 unit - Exam General: Alert, Oriented, Cooperative HEENT: Pupils Equal, Pupils Reactive, EOMI Neck: Supple Lungs: Clear to Auscultation, Normal Respiratory Effort Cardiovascular: Regular Rate, Regular Rhythm GI/Abdominal Exam: Normal Bowel Sounds, Soft, Non-Tender Back Exam: Normal Inspection Extremities: Normal Inspection Peripheral Pulses: 2+: Dorsalis Pedis (L), Dorsalis Pedis (R) Skin: Warm, Dry, Intact Neurological: No New Focal Deficit Psy/Mental Status: Alert, Normal Affect, Normal Mood - Problem List & Annotations (1) Hip fracture, left SNOMED Code(s): 334481237 Code(s): S72.002A - FRACTURE OF UNSP PART OF NECK OF LEFT FEMUR, INIT Status: Acute Current Visit: Yes Qualifiers: Encounter type: subsequent encounter (2) Left humeral fracture SNOMED Code(s): 52353676 Code(s): S42.302A - UNSP FRACTURE OF SHAFT OF HUMERUS, LEFT ARM, INIT Status: Acute Current Visit: Yes Qualifiers: Encounter type: subsequent encounter Humerus Location: proximal Fracture type: closed Fracture alignment: displaced Fracture healing: with routine healing (3) Left radial fracture SNOMED Code(s): 29091334 Code(s): S52.92XA - UNSP FRACTURE OF LEFT FOREARM, INIT FOR CLOS FX Status : Acute Current Visit: Yes Qualifiers: Encounter type: subsequent encounter Radius location: distal Fracture type: closed Fracture morphology: unspecified fracture morphology Fracture healing: with routine healing Qualified Code(s): S52.502D - Unspecified fracture of the lower end of left radius, subsequent encounter for closed fracture with routine healing (4) Left rib fracture SNOMED Code(s): 11115826 Code(s): S22.32XA - FRACTURE OF ONE RIB, LEFT SIDE, INIT FOR CLOS FX Status : Acute Current Visit: Yes Qualifiers: Rib fracture type: multiple ribs Fracture type: closed Fracture healing: with routine healing (5) Multiple fractures of left upper extremity and ribs SNOMED Code(s): 45165162 Code(s): S42.302A - UNSP FRACTURE OF SHAFT OF HUMERUS, LEFT ARM, INIT; S22.42XA - MULTIPLE FRACTURES OF RIBS, LEFT SIDE, INIT FOR CLOS FX Status: Acute Current Visit: Yes Qualifiers: Encounter type: subsequent encounter - Problem List Review Problem List Initiated/Reviewed/Updated: Yes - Plan Plan:: Plan of care for PT/OT therapy. Orthopedics f/u here in the hospital. Will plan for Jose A or Dr. Campos f/u. Medications continued. No changes at this time. 08/18/17 PT setup for Wed with Jose A as Dr. Campos unable to come to [facility]. Patient will be sent via Transport and back for further management plan. 08/26/17 Patient will continue with PT/OT as directed by ortho. New orders are for patient to be full weight bearing from Ortho. We will continue current rehabilitation and pain management. 09/01/17 Continue current PT/OT. Will f/u with Ortho for evaluation and management of continued left hip discomfort.
[2017-09-01] MEDS: Simvastatin 40 MG Tab PO SCH (21:05)
[2017-09-01] MEDS: Oxybutynin 5 MG Tab.ER PO SCH (21:05)
[2017-09-01] MEDS: Calcitonin (Salmon) Nasal Spray 3.7 ML Bottle NAS SCH (21:06)
[2017-09-01] MEDS: Latanoprost 0.005% Ophth Soln 2.5 ML Bottle EYEBOTH SCH (21:06)
[2017-09-02] MEDS: Ascorbic Acid 500 MG Tab PO SCH ×2 (07:39→17:56)
[2017-09-02] MEDS: Omeprazole 20 MG Cap.CR PO SCH (07:39)
[2017-09-02] MEDS: Lisinopril 10 MG Tab PO SCH (07:40)
[2017-09-02] MEDS: Sennosides 8.6 MG Tab PO SCH (07:40)
[2017-09-02] MEDS: Ferrous Sulfate 325 MG Tab PO SCH ×2 (07:40→20:34)
[2017-09-02] MEDS: Docusate Sodium 100 MG Cap PO SCH ×2 (07:40→20:34)
[2017-09-02] MEDS: Acetaminophen 500 MG Tab PO SCH ×4 (07:45→20:34)
[2017-09-02] MEDS: Acetaminophen/HYDROcodone 325-5 MG Tab PO PRN (14:07)
[2017-09-02] MEDS ORDERED: Naproxen 250 MG Tab ONE (16:57)
[2017-09-02] MEDS: Naproxen 250 MG Tab PO SCH ×2 (17:56→19:15)
[2017-09-02] MEDS: Oxybutynin 5 MG Tab.ER PO SCH (20:34)
[2017-09-02] MEDS: Simvastatin 40 MG Tab PO SCH (20:34)
[2017-09-02] MEDS: Latanoprost 0.005% Ophth Soln 2.5 ML Bottle EYEBOTH SCH (20:36)
[2017-09-02] MEDS: Calcitonin (Salmon) Nasal Spray 3.7 ML Bottle NAS SCH (20:36)
[2017-09-03] MEDS: Naproxen 250 MG Tab PO SCH ×2 (07:54→20:08)
[2017-09-03] MEDS: Docusate Sodium 100 MG Cap PO SCH ×2 (07:55→20:08)
[2017-09-03] MEDS: Ferrous Sulfate 325 MG Tab PO SCH ×2 (07:55→20:08)
[2017-09-03] MEDS: Calcium Carbonate/Vitamin D3 1500 MG-400 Units Tab PO SCH ×3 (07:55→20:07)
[2017-09-03] MEDS: Sennosides 8.6 MG Tab PO SCH (07:55)
[2017-09-03] MEDS: Omeprazole 20 MG Cap.CR PO SCH (07:56)
[2017-09-03] MEDS: Ascorbic Acid 500 MG Tab PO SCH ×2 (07:56→20:06)
[2017-09-03] MEDS: Magnesium Hydroxide 400 MG/5 ML Susp 30 ML Cup PO PRN (07:57)
[2017-09-03] MEDS: Lisinopril 10 MG Tab PO SCH (07:57)
[2017-09-03] MEDS: Acetaminophen/HYDROcodone 325-5 MG Tab PO PRN ×2 (12:53→20:30)
[2017-09-03] MEDS: Acetaminophen 500 MG Tab PO SCH ×3 (13:22→20:33)
[2017-09-03] MEDS: Polyethylene Glycol 3350 Powder 17 GM Packet PO PRN (15:25)
[2017-09-03] MEDS: Oxybutynin 5 MG Tab.ER PO SCH (20:07)
[2017-09-03] MEDS: Simvastatin 40 MG Tab PO SCH (20:08)
[2017-09-03] MEDS: Calcitonin (Salmon) Nasal Spray 3.7 ML Bottle NAS SCH (20:09)
[2017-09-03] MEDS: Latanoprost 0.005% Ophth Soln 2.5 ML Bottle EYEBOTH SCH (20:10)
[2017-09-04] MEDS: Sennosides 8.6 MG Tab PO SCH (07:58)
[2017-09-04] MEDS: Omeprazole 20 MG Cap.CR PO SCH (07:58)
[2017-09-04] MEDS: Ascorbic Acid 500 MG Tab PO SCH ×2 (07:59→17:02)
[2017-09-04] MEDS: Naproxen 250 MG Tab PO SCH ×2 (07:59→20:29)
[2017-09-04] MEDS: Docusate Sodium 100 MG Cap PO SCH ×2 (07:59→20:25)
[2017-09-04] MEDS: Ferrous Sulfate 325 MG Tab PO SCH ×2 (07:59→20:30)
[2017-09-04] MEDS: Calcium Carbonate/Vitamin D3 1500 MG-400 Units Tab PO SCH ×2 (07:59→17:01)
[2017-09-04] MEDS: Acetaminophen 500 MG Tab PO SCH ×4 (07:59→20:22)
[2017-09-04] MEDS: Lisinopril 10 MG Tab PO SCH (07:59)
[2017-09-04] MEDS: Acetaminophen/HYDROcodone 325-5 MG Tab PO PRN ×2 (14:34→20:34)
[2017-09-04] MEDS: Furosemide 40 MG Tab PO SCH (17:02)
[2017-09-04] MEDS: Simvastatin 40 MG Tab PO SCH (20:25)
[2017-09-04] MEDS: Oxybutynin 5 MG Tab.ER PO SCH (20:29)
[2017-09-04] MEDS: Calcitonin (Salmon) Nasal Spray 3.7 ML Bottle NAS SCH (20:30)
[2017-09-04] MEDS: Latanoprost 0.005% Ophth Soln 2.5 ML Bottle EYEBOTH SCH (20:30)
[2017-09-05] MEDS: Magnesium Hydroxide 400 MG/5 ML Susp 30 ML Cup PO PRN (07:57)
[2017-09-05] MEDS: Sennosides 8.6 MG Tab PO SCH (07:58)
[2017-09-05] MEDS: Naproxen 250 MG Tab PO SCH ×2 (07:58→20:55)
[2017-09-05] MEDS: Ferrous Sulfate 325 MG Tab PO SCH ×2 (07:58→20:55)
[2017-09-05] MEDS: Lisinopril 10 MG Tab PO SCH (07:59)
[2017-09-05] MEDS: Ascorbic Acid 500 MG Tab PO SCH ×2 (07:59→17:38)
[2017-09-05] MEDS: Docusate Sodium 100 MG Cap PO SCH ×2 (08:00→20:54)
[2017-09-05] MEDS: Furosemide 40 MG Tab PO SCH (08:00)
[2017-09-05] MEDS: Acetaminophen 500 MG Tab PO SCH ×4 (08:00→20:55)
[2017-09-05] MEDS: Omeprazole 20 MG Cap.CR PO SCH (08:00)
--- NOTE | 2017-09-05 10:22 | CR ---
DATE OF SERVICE: 09/05/17 CLINICAL DATA: swelling of hip PELVIS AND LEFT HIP: Comparison is made to a prior exam dated 07/25/17. There is diffuse osteopenia. The patient is status post internal fixation of a left hip fracture. No change in alignment or position from the prior study. The exam is otherwise is unchanged. No new abnormalities. [id number] [facility]
[2017-09-05] MEDS: Calcium Carbonate/Vitamin D3 1500 MG-400 Units Tab PO SCH (10:41)
[2017-09-05] MEDS ORDERED: Polyethylene Glycol 3350 Powder 17 GM Packet ONE (12:19)
[2017-09-05] MEDS: Polyethylene Glycol 3350 Powder 17 GM Packet PO SCH ×2 (12:23→20:55)
[2017-09-05] MEDS: Acetaminophen/HYDROcodone 325-5 MG Tab PO PRN (12:24)
[2017-09-05] MEDS: Latanoprost 0.005% Ophth Soln 2.5 ML Bottle EYEBOTH SCH (20:53)
[2017-09-05] MEDS: Calcitonin (Salmon) Nasal Spray 3.7 ML Bottle NAS SCH (20:55)
[2017-09-05] MEDS: Simvastatin 40 MG Tab PO SCH (20:55)
[2017-09-05] MEDS: Oxybutynin 5 MG Tab.ER PO SCH (20:55)
[2017-09-06] MEDS: Polyethylene Glycol 3350 Powder 17 GM Packet PO SCH ×2 (07:51→20:44)
[2017-09-06] MEDS: Naproxen 250 MG Tab PO SCH ×2 (07:52→20:40)
[2017-09-06] MEDS: Furosemide 40 MG Tab PO SCH (07:52)
[2017-09-06] MEDS: Docusate Sodium 100 MG Cap PO SCH ×2 (07:52→20:42)
[2017-09-06] MEDS: Acetaminophen/HYDROcodone 325-5 MG Tab PO PRN (07:53)
[2017-09-06] MEDS: Omeprazole 20 MG Cap.CR PO SCH (07:53)
[2017-09-06] MEDS: Ferrous Sulfate 325 MG Tab PO SCH ×2 (07:53→20:43)
[2017-09-06] MEDS: Ascorbic Acid 500 MG Tab PO SCH ×2 (07:54→17:09)
[2017-09-06] MEDS ORDERED: Sennosides 8.6 MG Tab ONE (07:59)
[2017-09-06] MEDS: Sennosides 8.6 MG Tab PO SCH (08:02)
[2017-09-06] MEDS: Acetaminophen 500 MG Tab PO SCH ×4 (08:05→20:43)
[2017-09-06] MEDS: Lisinopril 10 MG Tab PO SCH (13:00)
[2017-09-06] MEDS: Simvastatin 40 MG Tab PO SCH (20:42)
[2017-09-06] MEDS: Latanoprost 0.005% Ophth Soln 2.5 ML Bottle EYEBOTH SCH (20:43)
[2017-09-06] MEDS: Oxybutynin 5 MG Tab.ER PO SCH (20:43)
[2017-09-06] MEDS: Calcitonin (Salmon) Nasal Spray 3.7 ML Bottle NAS SCH (20:44)
[2017-09-07] MEDS: Omeprazole 20 MG Cap.CR PO SCH (08:02)
[2017-09-07] MEDS: Docusate Sodium 100 MG Cap PO SCH ×2 (08:02→20:07)
[2017-09-07] MEDS: Naproxen 250 MG Tab PO SCH ×2 (08:02→20:07)
[2017-09-07] MEDS: Ascorbic Acid 500 MG Tab PO SCH ×2 (08:02→17:30)
[2017-09-07] MEDS: Acetaminophen 500 MG Tab PO SCH ×4 (08:03→20:08)
[2017-09-07] MEDS: Ferrous Sulfate 325 MG Tab PO SCH ×2 (08:03→20:06)
[2017-09-07] MEDS: Lisinopril 10 MG Tab PO SCH (08:04)
[2017-09-07] MEDS: Polyethylene Glycol 3350 Powder 17 GM Packet PO SCH ×2 (08:04→23:55)
[2017-09-07] MEDS: Furosemide 40 MG Tab PO SCH (08:04)
[2017-09-07] MEDS: Sennosides 8.6 MG Tab PO SCH (08:04)
[2017-09-07] MEDS ORDERED: Oxybutynin 5 MG Tab ONE (19:15)
[2017-09-07] MEDS: Simvastatin 40 MG Tab PO SCH (20:07)
[2017-09-07] MEDS: Oxybutynin 5 MG Tab.ER PO SCH (20:07)
[2017-09-07] MEDS: Latanoprost 0.005% Ophth Soln 2.5 ML Bottle EYEBOTH SCH (20:08)
[2017-09-07] MEDS: Calcitonin (Salmon) Nasal Spray 3.7 ML Bottle NAS SCH (20:08)
--- NOTE | 2017-09-08 08:28 | PCM.PN ---
- General Info Date of Service: 09/08/17 Subjective Update: Patient is doing well and is good spirits. Denies any health concerns or issues. Left hip discomfort constant and slightly worse with walking and use. Denies worsening symptoms. Xray of hip was stable with no changes since last comparable. Patient denies any concerns. Functional Status: Reports: Pain Controlled, Tolerating Diet, Ambulating - Review of Systems General: Reports: Weakness HEENT: Reports: No Symptoms Pulmonary: Reports: No Symptoms Cardiovascular: Reports: No Symptoms Gastrointestinal: Reports: No Symptoms Genitourinary: Reports: No Symptoms Musculoskeletal: Reports: Joint Pain Skin: Reports: No Symptoms Neurological: Reports: Weakness Psychiatric: Reports: No Symptoms - Patient Data Vitals - Most Recent: Last Vital Signs Temp 36.7 C 09/07/17 08:00 Pulse 58 L 09/07/17 08:00 Resp 18 09/07/17 08:00 BP 163/54 H 09/07/17 08:00 Pulse Ox 96 09/07/17 08:00 Weight - Most Recent: 75.841 kg Med Orders - Current: Current Medications Acetaminophen (Tylenol Extra Strength) 500 mg PO QID [facility] Last Admin: 09/07/17 20:08 Dose: 500 mg Hydrocodone Bitart/Acetaminophen ([place] 325-5 Mg) 1 - 2 tab PO Q4H PRN PRN Reason: PAIN Last Admin: 09/06/17 07:53 Dose: 1 tab Ascorbic Acid (Vitamin C) 250 mg PO BIDMEALS [facility] Last Admin: 09/07/17 17:30 Dose: 250 mg Bisacodyl (Dulcolax) 10 mg RECTAL DAILY PRN PRN Reason: Constipation Buprenorphine (Butrans) 10 mcg TD Q7D [facility] Last Admin: 09/02/17 20:00 Dose: 10 mcg Calcitonin [place] (Miacalcin Nasal [place]) 0 ml [place] DAILY@1999 [facility] Last Admin: 09/07/17 20:08 Dose: 2 sprays(dnu) Docusate Sodium (Colace) 100 mg PO BID [facility] Last Admin: 09/07/17 20:07 Dose: 100 mg Ferrous Sulfate (Ferrous Sulfate) 325 mg PO BID [facility] Last Admin: 09/07/17 20:06 Dose: 325 mg Furosemide (Lasix) 40 mg PO DAILY [facility] Last Admin: 09/07/17 08:04 Dose: 40 mg Latanoprost (Xalatan 0.005% Ophth Soln) 2.5 ml EYEBOTH BEDTIME [facility] Last Admin: 09/07/17 20:08 Dose: 1 drop Lisinopril (Prinivil) 10 mg PO DAILY [facility] Last Admin: 09/07/17 08:04 Dose: 10 mg Magnesium Hydroxide (Milk Of Magnesia) 30 ml PO DAILY PRN PRN Reason: Constipation Last Admin: 09/05/17 07:57 Dose: 30 ml Miscellaneous Information (Remove Patch) 1 ea TRDERM Q7D [facility] Last Admin: 09/02/17 20:00 Dose: 1 ea Naproxen (Naprosyn) 250 mg PO Q12HR [facility] Last Admin: 09/07/17 20:07 Dose: 250 mg Nystatin (Nystop) 1 gm TOP BID PRN PRN Reason: Rash Omeprazole (Omeprazole) 20 mg PO DAILY [facility] Last Admin: 09/07/17 08:02 Dose: 20 mg Oxybutynin Chloride (Oxybutynin Er) 5 mg PO BEDTIME [facility] Last Admin: 09/07/17 20:07 Dose: Not Given Polyethylene Glycol (Miralax) 17 gm PO BID [facility] Last Admin: 09/07/17 23:55 Dose: Not Given Senna (Senna) 17.2 mg PO DAILY [facility] Last Admin: 09/07/17 08:04 Dose: 17.2 mg Simvastatin (Zocor) 40 mg PO BEDTIME [facility] Last Admin: 09/07/17 20:07 Dose: 40 mg Discontinued Medications Acetaminophen (Tylenol Extra Strength) 500 mg .ROUTE .STK-MED ONE Stop: 07/29/17 12:01 Acetaminophen (Tylenol Extra Strength) 500 mg .ROUTE .STK-MED ONE Stop: 07/29/17 12:01 Acetaminophen (Tylenol Extra Strength) Confirm Administered Dose 500 mg .ROUTE .STK-MED ONE Stop: 08/04/17 20:23 Last Admin: 08/04/17 20:28 Dose: Not Given Hydrocodone Bitart/Acetaminophen ([place] 325-5 Mg) 3 tab PO BID [facility] Last Admin: 07/24/17 08:51 Dose: 3 tab Hydrocodone Bitart/Acetaminophen ([place] 325-5 Mg) 1 tab PO Q4H PRN PRN Reason: Pain Amlodipine Besylate (Norvasc) 5 mg PO DAILY [facility] Last Admin: 08/27/17 08:19 Dose: Not Given Amlodipine Besylate (Norvasc) 5 mg .ROUTE .STK-MED ONE Stop: 07/29/17 12:01 Ascorbic Acid (Vitamin C) 500 mg .ROUTE .K-MED ONE Stop: 07/29/17 12:01 Calcitonin [place] (Miacalcin Nasal [place]) 0 ml [place] DAILY [facility] Last Admin: 07/28/17 08:24 Dose: Not Given Calcitonin [place] (Miacalcin Nasal [place]) 0 ml [place] DAILY [facility] Last Admin: 07/29/17 20:30 Dose: 1 spray Calcium Carbonate (Calcium Carbonate/Vitamin D 1500 Mg-200 Unit) 1 tab PO BIDMEALS [facility] Last Admin: 07/31/17 17:00 Dose: Not Given Calcium Carbonate (Caltrate 600+D 1500 Mg-400 Units) 1 tab PO BIDMEALS [facility] Last Admin: 09/05/17 10:41 Dose: Not Given Docusate Sodium (Colace) 100 mg .ROUTE .STK-MED ONE Stop: 07/29/17 12:01 Docusate Sodium (Colace) Confirm Administered Dose 100 mg .ROUTE .STK-MED ONE Stop: 08/04/17 20:25 Last Admin: 08/04/17 20:28 Dose: Not Given Enoxaparin Sodium (Lovenox) 80 mg SUBCUT DAILY [facility] Enoxaparin Sodium (Lovenox) 40 mg SUBCUT DAILY [facility] Last Admin: 08/26/17 07:32 Dose: 40 mg Enoxaparin Sodium (Lovenox) 40 mg .ROUTE .STK-MED ONE Stop: 07/29/17 12:01 Epoetin [place] (Procrit) 20,000 units SUBCUT .WEEKLY [facility] Last Admin: 07/26/17 08:40 Dose: 20,000 units Epoetin [place] (Procrit) 20,000 units SUBCUT Mo [facility] Last Admin: 08/25/17 12:13 Dose: 20,000 units Ferrous Sulfate (Ferrous Sulfate) 325 mg .ROUTE .STK-MED ONE Stop: 07/29/17 12:01 Ferrous Sulfate (Ferrous Sulfate) Confirm Administered Dose 325 mg .ROUTE .STK- MED ONE Stop: 08/04/17 20:24 Last Admin: 08/04/17 20:28 Dose: Not Given Latanoprost (Xalatan 0.005% [facility]) 0 ml EYEBOTH BEDTIME [facility] Last Admin: 08/17/17 20:53 Dose: 1 drop Latanoprost (Xalatan 0.005% Ophth Soln) 2.5 ml .ROUTE .STK-MED ONE Stop: 08/16/17 10:06 Lisinopril (Prinivil) 20 mg PO DAILY [facility] Last Admin: 08/12/17 13:16 Dose: 10 mg Lisinopril (Prinivil) 20 mg .ROUTE .STK-MED ONE Stop: 07/29/17 12:01 Miscellaneous Information (Remove Patch) 1 ea TRDERM .WEEKLY [facility] Miscellaneous Information (Remove Patch) 1 ea TRDERM Q7D [facility] Last Admin: 08/19/17 21:09 Dose: 1 ea Naproxen (Naprosyn) Confirm Administered Dose 250 mg .ROUTE .STK-MED ONE Stop: 09/02/17 16:58 Last Admin: 09/02/17 19:15 Dose: Not Given Butrans 10mcg Patch 1 each TOP .WEEKLY [facility] Last Admin: 07/29/17 20:45 Dose: 1 each Butrans 10mcg Patch 1 each TOP .WEEKLY [facility] Butrans 10mcg Patch 1 each TOP Q7D [facility] Last Admin: 08/19/17 21:09 Dose: 1 each Nystatin (Nystop) 0 gm TOP BID [facility] Last Admin: 08/27/17 08:17 Dose: Not Given Nystatin (Nystop) Confirm Administered Dose 15 gm .ROUTE .STK-MED ONE Stop: 07/24/17 17:35 Last Admin: 07/24/17 18:43 Dose: Not Given Omeprazole (Omeprazole) 20 mg .ROUTE .STK-MED ONE Stop: 07/29/17 12:01 Oxybutynin Chloride (Oxybutynin) Confirm Administered Dose 5 mg .ROUTE .STK-MED ONE Stop: 09/07/17 19:16 Last Admin: 09/07/17 20:07 Dose: 5 mg Polyethylene Glycol (Miralax) 17 gm PO DAILY PRN PRN Reason: Constipation Last Admin: 09/03/17 15:25 Dose: 17 gm Polyethylene Glycol (Miralax) Confirm Administered Dose 17 gm .ROUTE .STK-MED ONE Stop: 09/05/17 12:20 Last Admin: 09/05/17 12:24 Dose: Not Given Senna (Senna) 17.2 mg .ROUTE .STK-MED ONE Stop: 07/29/17 12:01 Senna (Senna) Confirm Administered Dose 8.6 mg .ROUTE .STK-MED ONE Stop: 09/06/17 08:00 Last Admin: 09/06/17 08:05 Dose: Not Given Simvastatin (Zocor) Confirm Administered Dose 40 mg .ROUTE .STK-MED ONE Stop: 08/04/17 20:23 Last Admin: 08/04/17 20:28 Dose: Not Given Tuberculin PPD (Aplisol) 5 unit IDERM ONETIME ONE Stop: 07/23/17 17:04 Last Admin: 07/23/17 20:23 Dose: 5 unit - Exam General: Alert, Oriented HEENT: Pupils Equal, Pupils Reactive, EOMI Neck: Supple Lungs: Clear to Auscultation, Normal Respiratory Effort Cardiovascular: Regular Rate, Regular Rhythm - Problem List & Annotations (1) Hip fracture, left SNOMED Code(s): 144121958 Code(s): S72.002A - FRACTURE OF UNSP PART OF NECK OF LEFT FEMUR, INIT Status: Acute Current Visit: Yes Qualifiers: Encounter type: subsequent encounter (2) Left humeral fracture SNOMED Code(s): 90508238 Code(s): S42.302A - UNSP FRACTURE OF SHAFT OF HUMERUS, LEFT ARM, INIT Status: Acute Current Visit: Yes Qualifiers: Encounter type: subsequent encounter Humerus Location: proximal Fracture type: closed Fracture alignment: displaced Fracture healing: with routine healing (3) Left radial fracture SNOMED Code(s): 63811058 Code(s): S52.92XA - UNSP FRACTURE OF LEFT FOREARM, INIT FOR CLOS FX Status : Acute Current Visit: Yes Qualifiers: Encounter type: subsequent encounter Radius location: distal Fracture type: closed Fracture morphology: unspecified fracture morphology Fracture healing: with routine healing Qualified Code(s): S52.502D - Unspecified fracture of the lower end of left radius, subsequent encounter for closed fracture with routine healing (4) Left rib fracture SNOMED Code(s): 51328237 Code(s): S22.32XA - FRACTURE OF ONE RIB, LEFT SIDE, INIT FOR CLOS FX Status : Acute Current Visit: Yes Qualifiers: Rib fracture type: multiple ribs Fracture type: closed Fracture healing: with routine healing (5) Multiple fractures of left upper extremity and ribs SNOMED Code(s): 16969183 Code(s): S42.302A - UNSP FRACTURE OF SHAFT OF HUMERUS, LEFT ARM, INIT; S22.42XA - MULTIPLE FRACTURES OF RIBS, LEFT SIDE, INIT FOR CLOS FX Status: Acute Current Visit: Yes Qualifiers: Encounter type: subsequent encounter - Problem List Review Problem List Initiated/Reviewed/Updated: Yes - Plan Plan:: Plan of care for PT/OT therapy. Orthopedics f/u here in the hospital. Will plan for Jose A or Dr. Campos f/u. Medications continued. No changes at this time. 08/18/17 PT setup for Wed with Jose A as Dr. Campos unable to come to [facility]. Patient will be sent via Transport and back for further management plan. 08/26/17 Patient will continue with PT/OT as directed by ortho. New orders are for patient to be full weight bearing from Ortho. We will continue current rehabilitation and pain management. 09/01/17 Continue current PT/OT. Will f/u with Ortho for evaluation and management of continued left hip discomfort. 09/08/17 Improved strength weekly. Working well with PT/OT. Pain under control. Increased use of left shoulder and arm. Continue current PT/OT management.
[2017-09-08] MEDS: Sennosides 8.6 MG Tab PO SCH (08:29)
[2017-09-08] MEDS: Naproxen 250 MG Tab PO SCH ×2 (08:29→20:04)
[2017-09-08] MEDS: Ferrous Sulfate 325 MG Tab PO SCH ×2 (08:29→20:02)
[2017-09-08] MEDS: Furosemide 40 MG Tab PO SCH (08:29)
[2017-09-08] MEDS: Lisinopril 10 MG Tab PO SCH (08:29)
[2017-09-08] MEDS: Acetaminophen 500 MG Tab PO SCH ×4 (08:30→20:03)
[2017-09-08] MEDS: Ascorbic Acid 500 MG Tab PO SCH ×2 (08:30→16:14)
[2017-09-08] MEDS: Omeprazole 20 MG Cap.CR PO SCH (08:32)
[2017-09-08] MEDS: Polyethylene Glycol 3350 Powder 17 GM Packet PO SCH ×2 (08:33→20:15)
[2017-09-08] MEDS: Docusate Sodium 100 MG Cap PO SCH ×2 (08:33→20:15)
[2017-09-08] MEDS: Acetaminophen/HYDROcodone 325-5 MG Tab PO PRN (14:00)
[2017-09-08] MEDS: Simvastatin 40 MG Tab PO SCH (20:02)
[2017-09-08] MEDS: Calcitonin (Salmon) Nasal Spray 3.7 ML Bottle NAS SCH (20:05)
[2017-09-08] MEDS: Latanoprost 0.005% Ophth Soln 2.5 ML Bottle EYEBOTH SCH (20:07)
[2017-09-08] MEDS ORDERED: Oxybutynin 5 MG Tab ONE (20:10)
[2017-09-08] MEDS: Oxybutynin 5 MG Tab.ER PO SCH (20:14)
[2017-09-09] MEDS: Docusate Sodium 100 MG Cap PO SCH ×2 (08:01→20:37)
[2017-09-09] MEDS: Ascorbic Acid 500 MG Tab PO SCH ×2 (08:01→17:25)
[2017-09-09] MEDS: Naproxen 250 MG Tab PO SCH ×2 (08:01→20:38)
[2017-09-09] MEDS: Omeprazole 20 MG Cap.CR PO SCH (08:02)
[2017-09-09] MEDS: Ferrous Sulfate 325 MG Tab PO SCH ×2 (08:02→20:37)
[2017-09-09] MEDS: Furosemide 40 MG Tab PO SCH (08:02)
[2017-09-09] MEDS: Sennosides 8.6 MG Tab PO SCH (08:03)
[2017-09-09] MEDS: Lisinopril 10 MG Tab PO SCH (08:07)
[2017-09-09] MEDS: Acetaminophen 500 MG Tab PO SCH ×4 (08:08→20:37)
[2017-09-09] MEDS: Polyethylene Glycol 3350 Powder 17 GM Packet PO SCH ×2 (08:09→20:44)
[2017-09-09] MEDS: Acetaminophen/HYDROcodone 325-5 MG Tab PO PRN (12:55)
[2017-09-09] MEDS: Simvastatin 40 MG Tab PO SCH (20:37)
[2017-09-09] MEDS: Calcitonin (Salmon) Nasal Spray 3.7 ML Bottle NAS SCH (20:38)
[2017-09-09] MEDS: Oxybutynin 5 MG Tab.ER PO SCH (20:38)
[2017-09-09] MEDS: Latanoprost 0.005% Ophth Soln 2.5 ML Bottle EYEBOTH SCH (20:38)
[2017-09-10] MEDS: Acetaminophen/HYDROcodone 325-5 MG Tab PO PRN ×4 (02:22→20:15)
[2017-09-10] MEDS: Naproxen 250 MG Tab PO SCH ×2 (08:15→20:17)
[2017-09-10] MEDS: Polyethylene Glycol 3350 Powder 17 GM Packet PO SCH ×2 (08:16→20:17)
[2017-09-10] MEDS: Acetaminophen 500 MG Tab PO SCH ×4 (08:16→20:17)
[2017-09-10] MEDS: Furosemide 40 MG Tab PO SCH (08:16)
[2017-09-10] MEDS: Lisinopril 10 MG Tab PO SCH (08:17)
[2017-09-10] MEDS: Docusate Sodium 100 MG Cap PO SCH ×2 (08:17→20:17)
[2017-09-10] MEDS: Ascorbic Acid 500 MG Tab PO SCH ×2 (08:17→16:30)
[2017-09-10] MEDS: Ferrous Sulfate 325 MG Tab PO SCH ×2 (08:18→20:17)
[2017-09-10] MEDS: Omeprazole 20 MG Cap.CR PO SCH (08:18)
[2017-09-10] MEDS: Sennosides 8.6 MG Tab PO SCH (08:18)
[2017-09-10] MEDS: Oxybutynin 5 MG Tab.ER PO SCH (20:17)
[2017-09-10] MEDS: Simvastatin 40 MG Tab PO SCH (20:18)
[2017-09-10] MEDS: Calcitonin (Salmon) Nasal Spray 3.7 ML Bottle NAS SCH (20:24)
[2017-09-10] MEDS: Latanoprost 0.005% Ophth Soln 2.5 ML Bottle EYEBOTH SCH (20:25)
[2017-09-11] MEDS: Acetaminophen/HYDROcodone 325-5 MG Tab PO PRN ×4 (02:44→20:27)
[2017-09-11] MEDS: Docusate Sodium 100 MG Cap PO SCH ×2 (07:20→20:24)
[2017-09-11] MEDS: Omeprazole 20 MG Cap.CR PO SCH (07:22)
[2017-09-11] MEDS: Furosemide 40 MG Tab PO SCH (07:22)
[2017-09-11] MEDS: Lisinopril 10 MG Tab PO SCH (07:23)
[2017-09-11] MEDS: Acetaminophen 500 MG Tab PO SCH ×4 (07:24→20:26)
[2017-09-11] MEDS: Ascorbic Acid 500 MG Tab PO SCH ×2 (07:25→16:45)
[2017-09-11] MEDS: Naproxen 250 MG Tab PO SCH ×2 (07:26→20:26)
[2017-09-11] MEDS: Ferrous Sulfate 325 MG Tab PO SCH ×2 (08:15→20:24)
[2017-09-11] MEDS: Polyethylene Glycol 3350 Powder 17 GM Packet PO SCH ×2 (12:28→20:25)
[2017-09-11] MEDS: Sennosides 8.6 MG Tab PO SCH (12:28)
[2017-09-11] MEDS: Calcitonin (Salmon) Nasal Spray 3.7 ML Bottle NAS SCH (20:24)
[2017-09-11] MEDS: Oxybutynin 5 MG Tab.ER PO SCH (20:26)
[2017-09-11] MEDS: Latanoprost 0.005% Ophth Soln 2.5 ML Bottle EYEBOTH SCH (20:27)
[2017-09-11] MEDS: Simvastatin 40 MG Tab PO SCH (20:27)
[2017-09-12] MEDS: Acetaminophen 500 MG Tab PO SCH ×4 (07:47→20:09)
[2017-09-12] MEDS: Omeprazole 20 MG Cap.CR PO SCH (07:47)
[2017-09-12] MEDS: Docusate Sodium 100 MG Cap PO SCH ×2 (07:47→20:09)
[2017-09-12] MEDS: Furosemide 40 MG Tab PO SCH (07:47)
[2017-09-12] MEDS: Lisinopril 10 MG Tab PO SCH (07:48)
[2017-09-12] MEDS: Naproxen 250 MG Tab PO SCH ×2 (07:48→20:09)
[2017-09-12] MEDS: Sennosides 8.6 MG Tab PO SCH (07:48)
[2017-09-12] MEDS: Ferrous Sulfate 325 MG Tab PO SCH ×2 (07:48→20:08)
[2017-09-12] MEDS: Ascorbic Acid 500 MG Tab PO SCH ×2 (07:48→17:02)
[2017-09-12] MEDS: Polyethylene Glycol 3350 Powder 17 GM Packet PO SCH ×2 (07:48→20:19)
[2017-09-12] MEDS: Acetaminophen/HYDROcodone 325-5 MG Tab PO PRN ×2 (13:04→20:09)
[2017-09-12] MEDS: Simvastatin 40 MG Tab PO SCH (20:08)
[2017-09-12] MEDS: Oxybutynin 5 MG Tab.ER PO SCH (20:09)
[2017-09-12] MEDS: Calcitonin (Salmon) Nasal Spray 3.7 ML Bottle NAS SCH (20:18)
[2017-09-12] MEDS: Latanoprost 0.005% Ophth Soln 2.5 ML Bottle EYEBOTH SCH (20:19)
[2017-09-13] MEDS: Omeprazole 20 MG Cap.CR PO SCH (08:05)
[2017-09-13] MEDS: Naproxen 250 MG Tab PO SCH ×2 (08:05→19:36)
[2017-09-13] MEDS: Furosemide 40 MG Tab PO SCH (08:05)
[2017-09-13] MEDS: Sennosides 8.6 MG Tab PO SCH (08:05)
[2017-09-13] MEDS: Ferrous Sulfate 325 MG Tab PO SCH ×2 (08:05→19:37)
[2017-09-13] MEDS: Lisinopril 10 MG Tab PO SCH (08:05)
[2017-09-13] MEDS: Docusate Sodium 100 MG Cap PO SCH ×2 (08:05→19:37)
[2017-09-13] MEDS: Ascorbic Acid 500 MG Tab PO SCH ×2 (08:05→16:56)
[2017-09-13] MEDS: Acetaminophen 500 MG Tab PO SCH ×4 (08:05→19:37)
[2017-09-13] MEDS: Polyethylene Glycol 3350 Powder 17 GM Packet PO SCH ×2 (08:09→19:38)
[2017-09-13] MEDS: Calcitonin (Salmon) Nasal Spray 3.7 ML Bottle NAS SCH (19:35)
[2017-09-13] MEDS: Simvastatin 40 MG Tab PO SCH (19:37)
[2017-09-13] MEDS: Latanoprost 0.005% Ophth Soln 2.5 ML Bottle EYEBOTH SCH (19:38)
[2017-09-13] MEDS: Oxybutynin 5 MG Tab.ER PO SCH (19:39)
[2017-09-13] MEDS: Acetaminophen/HYDROcodone 325-5 MG Tab PO PRN (20:06)
[2017-09-14] MEDS: Docusate Sodium 100 MG Cap PO SCH ×2 (08:25→20:05)
[2017-09-14] MEDS: Acetaminophen 500 MG Tab PO SCH ×4 (08:25→20:05)
[2017-09-14] MEDS: Naproxen 250 MG Tab PO SCH ×2 (08:25→20:04)
[2017-09-14] MEDS: Omeprazole 20 MG Cap.CR PO SCH (08:25)
[2017-09-14] MEDS: Furosemide 40 MG Tab PO SCH (08:25)
[2017-09-14] MEDS: Sennosides 8.6 MG Tab PO SCH (08:26)
[2017-09-14] MEDS: Ascorbic Acid 500 MG Tab PO SCH ×2 (08:26→15:59)
[2017-09-14] MEDS: Lisinopril 10 MG Tab PO SCH (08:27)
[2017-09-14] MEDS: Ferrous Sulfate 325 MG Tab PO SCH ×2 (08:28→20:05)
[2017-09-14] MEDS: Polyethylene Glycol 3350 Powder 17 GM Packet PO SCH ×2 (09:33→20:05)
[2017-09-14] MEDS: Simvastatin 40 MG Tab PO SCH (20:04)
[2017-09-14] MEDS: Calcitonin (Salmon) Nasal Spray 3.7 ML Bottle NAS SCH (20:06)
[2017-09-14] MEDS: Oxybutynin 5 MG Tab.ER PO SCH (20:07)
[2017-09-14] MEDS: Latanoprost 0.005% Ophth Soln 2.5 ML Bottle EYEBOTH SCH (20:07)
[2017-09-15] MEDS: Polyethylene Glycol 3350 Powder 17 GM Packet PO SCH ×2 (07:53→20:21)
[2017-09-15] MEDS: Furosemide 40 MG Tab PO SCH (07:55)
[2017-09-15] MEDS: Naproxen 250 MG Tab PO SCH ×2 (07:55→20:19)
[2017-09-15] MEDS: Sennosides 8.6 MG Tab PO SCH (07:55)
[2017-09-15] MEDS: Lisinopril 10 MG Tab PO SCH (07:55)
[2017-09-15] MEDS: Ferrous Sulfate 325 MG Tab PO SCH ×2 (07:55→20:19)
[2017-09-15] MEDS: Docusate Sodium 100 MG Cap PO SCH ×2 (07:55→20:19)
[2017-09-15] MEDS: Omeprazole 20 MG Cap.CR PO SCH (07:55)
[2017-09-15] MEDS: Acetaminophen 500 MG Tab PO SCH ×4 (07:55→20:19)
[2017-09-15] MEDS: Ascorbic Acid 500 MG Tab PO SCH ×2 (07:56→16:38)
--- NOTE | 2017-09-15 12:22 | PCM.PN ---
- General Info Date of Service: 09/15/17 Subjective Update: Patient denies any concerns or questions. She remains content with current management and treatment. No other health concerns. Functional Status: Reports: Pain Controlled, Tolerating Diet, Ambulating - Review of Systems General: Reports: Weakness HEENT: Reports: No Symptoms Pulmonary: Reports: No Symptoms Cardiovascular: Reports: No Symptoms Gastrointestinal: Reports: No Symptoms Genitourinary: Reports: No Symptoms Musculoskeletal: Reports: Joint Pain Skin: Reports: No Symptoms Neurological: Reports: No Symptoms - Patient Data Vitals - Most Recent: Last Vital Signs Temp 36.7 C 09/15/17 08:00 Pulse 58 L 09/15/17 08:00 Resp 18 09/13/17 08:00 BP 156/58 H 09/15/17 08:00 Pulse Ox 97 09/15/17 08:00 Weight - Most Recent: 78.109 kg Med Orders - Current: Current Medications Acetaminophen (Tylenol Extra Strength) 500 mg PO QID [facility] Last Admin: 09/15/17 07:55 Dose: 500 mg Hydrocodone Bitart/Acetaminophen ([place] 325-5 Mg) 1 - 2 tab PO Q4H PRN PRN Reason: PAIN Last Admin: 09/13/17 20:06 Dose: 1 tab Ascorbic Acid (Vitamin C) 250 mg PO BIDMEALS [facility] Last Admin: 09/15/17 07:56 Dose: 250 mg Bisacodyl (Dulcolax) 10 mg RECTAL DAILY PRN PRN Reason: Constipation Buprenorphine (Butrans) 10 mcg TD Q7D [facility] Last Admin: 09/09/17 20:48 Dose: 10 mcg Calcitonin [place] (Miacalcin Nasal [place]) 0 ml [place] DAILY@1999 [facility] Last Admin: 09/14/17 20:06 Dose: 1 sprays(dnu) Docusate Sodium (Colace) 100 mg PO BID [facility] Last Admin: 09/15/17 07:55 Dose: 100 mg Ferrous Sulfate (Ferrous Sulfate) 325 mg PO BID [facility] Last Admin: 09/15/17 07:55 Dose: 325 mg Furosemide (Lasix) 40 mg PO DAILY [facility] Last Admin: 09/15/17 07:55 Dose: 40 mg Latanoprost (Xalatan 0.005% Ophth Soln) 2.5 ml EYEBOTH BEDTIME [facility] Last Admin: 09/14/17 20:07 Dose: 1 drop Lisinopril (Prinivil) 10 mg PO DAILY [facility] Last Admin: 09/15/17 07:55 Dose: 10 mg Magnesium Hydroxide (Milk Of Magnesia) 30 ml PO DAILY PRN PRN Reason: Constipation Last Admin: 09/05/17 07:57 Dose: 30 ml Miscellaneous Information (Remove Patch) 1 ea TRDERM Q7D [facility] Last Admin: 09/09/17 20:48 Dose: 1 ea Naproxen (Naprosyn) 250 mg PO Q12HR [facility] Last Admin: 09/15/17 07:55 Dose: 250 mg Nystatin (Nystop) 1 gm TOP BID PRN PRN Reason: Rash Omeprazole (Omeprazole) 20 mg PO DAILY [facility] Last Admin: 09/15/17 07:55 Dose: 20 mg Oxybutynin Chloride (Oxybutynin Er) 5 mg PO BEDTIME [facility] Last Admin: 09/14/17 20:07 Dose: 5 mg Polyethylene Glycol (Miralax) 17 gm PO BID [facility] Last Admin: 09/15/17 07:53 Dose: Not Given Senna (Senna) 17.2 mg PO DAILY [facility] Last Admin: 09/15/17 07:55 Dose: 17.2 mg Simvastatin (Zocor) 40 mg PO BEDTIME [facility] Last Admin: 09/14/17 20:04 Dose: 40 mg Discontinued Medications Acetaminophen (Tylenol Extra Strength) 500 mg .ROUTE .STK-MED ONE Stop: 07/29/17 12:01 Acetaminophen (Tylenol Extra Strength) 500 mg .ROUTE .STK-MED ONE Stop: 07/29/17 12:01 Acetaminophen (Tylenol Extra Strength) Confirm Administered Dose 500 mg .ROUTE .STK-MED ONE Stop: 08/04/17 20:23 Last Admin: 08/04/17 20:28 Dose: Not Given Hydrocodone Bitart/Acetaminophen ([place] 325-5 Mg) 3 tab PO BID [facility] Last Admin: 07/24/17 08:51 Dose: 3 tab Hydrocodone Bitart/Acetaminophen ([place] 325-5 Mg) 1 tab PO Q4H PRN PRN Reason: Pain Amlodipine Besylate (Norvasc) 5 mg PO DAILY [facility] Last Admin: 08/27/17 08:19 Dose: Not Given Amlodipine Besylate (Norvasc) 5 mg .ROUTE .STK-MED ONE Stop: 07/29/17 12:01 Ascorbic Acid (Vitamin C) 500 mg .ROUTE .STK-MED ONE Stop: 07/29/17 12:01 Calcitonin [place] (Miacalcin Nasal [place]) 0 ml [place] DAILY [facility] Last Admin: 07/28/17 08:24 Dose: Not Given Calcitonin [place] (Miacalcin Nasal [place]) 0 ml [place] DAILY [facility] Last Admin: 07/29/17 20:30 Dose: 1 spray Calcium Carbonate (Calcium Carbonate/Vitamin D 1500 Mg-200 Unit) 1 tab PO BIDMEALS [facility] Last Admin: 07/31/17 17:00 Dose: Not Given Calcium Carbonate (Caltrate 600+D 1500 Mg-400 Units) 1 tab PO BIDMEALS [facility] Last Admin: 09/05/17 10:41 Dose: Not Given Docusate Sodium (Colace) 100 mg .ROUTE .STK-MED ONE Stop: 07/29/17 12:01 Docusate Sodium (Colace) Confirm Administered Dose 100 mg .ROUTE .STK-MED ONE Stop: 08/04/17 20:25 Last Admin: 08/04/17 20:28 Dose: Not Given Enoxaparin Sodium (Lovenox) 80 mg SUBCUT DAILY [facility] Enoxaparin Sodium (Lovenox) 40 mg SUBCUT DAILY [facility] Last Admin: 08/26/17 07:32 Dose: 40 mg Enoxaparin Sodium (Lovenox) 40 mg .ROUTE .STK-MED ONE Stop: 07/29/17 12:01 Epoetin [place] (Procrit) 20,000 units SUBCUT .WEEKLY [facility] Last Admin: 07/26/17 08:40 Dose: 20,000 units Epoetin [place] (Procrit) 20,000 units SUBCUT Mo [facility] Last Admin: 08/25/17 12:13 Dose: 20,000 units Ferrous Sulfate (Ferrous Sulfate) 325 mg .ROUTE .STK-MED ONE Stop: 07/29/17 12:01 Ferrous Sulfate (Ferrous Sulfate) Confirm Administered Dose 325 mg .ROUTE .STK- MED ONE Stop: 08/04/17 20:24 Last Admin: 08/04/17 20:28 Dose: Not Given Latanoprost (Xalatan 0.005% Ophth Soln) 0 ml EYEBOTH BEDTIME [facility] Last Admin: 08/17/17 20:53 Dose: 1 drop Latanoprost (Xalatan 0.005% Ophth Soln) 2.5 ml .ROUTE .STK-MED ONE Stop: 08/16/17 10:06 Lisinopril (Prinivil) 20 mg PO DAILY [facility] Last Admin: 08/12/17 13:16 Dose: 10 mg Lisinopril (Prinivil) 20 mg .ROUTE .STK-MED ONE Stop: 07/29/17 12:01 Miscellaneous Information (Remove Patch) 1 ea TRDERM .WEEKLY [facility] Miscellaneous Information (Remove Patch) 1 ea TRDERM Q7D [facility] Last Admin: 08/19/17 21:09 Dose: 1 ea Naproxen (Naprosyn) Confirm Administered Dose 250 mg .ROUTE .STK-MED ONE Stop: 09/02/17 16:58 Last Admin: 09/02/17 19:15 Dose: Not Given Butrans 10mcg Patch 1 each TOP .WEEKLY [facility] Last Admin: 07/29/17 20:45 Dose: 1 each Butrans 10mcg Patch 1 each TOP .WEEKLY [facility] Butrans 10mcg Patch 1 each TOP Q7D [facility] Last Admin: 08/19/17 21:09 Dose: 1 each Nystatin (Nystop) 0 gm TOP BID [facility] Last Admin: 08/27/17 08:17 Dose: Not Given Nystatin (Nystop) Confirm Administered Dose 15 gm .ROUTE .STK-MED ONE Stop: 07/24/17 17:35 Last Admin: 07/24/17 18:43 Dose: Not Given Omeprazole (Omeprazole) 20 mg .ROUTE .STK-MED ONE Stop: 07/29/17 12:01 Oxybutynin Chloride (Oxybutynin) Confirm Administered Dose 5 mg .ROUTE .STK-MED ONE Stop: 09/07/17 19:16 Last Admin: 09/07/17 20:07 Dose: 5 mg Oxybutynin Chloride (Oxybutynin) Confirm Administered Dose 5 mg .ROUTE .STK-MED ONE Stop: 09/08/17 20:11 Last Admin: 09/08/17 20:16 Dose: Not Given Polyethylene Glycol (Miralax) 17 gm PO DAILY PRN PRN Reason: Constipation Last Admin: 09/03/17 15:25 Dose: 17 gm Polyethylene Glycol (Miralax) Confirm Administered Dose 17 gm .ROUTE .STK-MED ONE Stop: 09/05/17 12:20 Last Admin: 09/05/17 12:24 Dose: Not Given Senna (Senna) 17.2 mg .ROUTE .STK-MED ONE Stop: 07/29/17 12:01 Senna (Senna) Confirm Administered Dose 8.6 mg .ROUTE .STK-MED ONE Stop: 09/06/17 08:00 Last Admin: 09/06/17 08:05 Dose: Not Given Simvastatin (Zocor) Confirm Administered Dose 40 mg .ROUTE .STK-MED ONE Stop: 08/04/17 20:23 Last Admin: 08/04/17 20:28 Dose: Not Given Tuberculin PPD (Aplisol) 5 unit IDERM ONETIME ONE Stop: 07/23/17 17:04 Last Admin: 07/23/17 20:23 Dose: 5 unit - Exam General: Alert, Oriented, Cooperative HEENT: Pupils Equal, Pupils Reactive Neck: Supple Lungs: Clear to Auscultation, Normal Respiratory Effort Cardiovascular: Regular Rate, Regular Rhythm GI/Abdominal Exam: Normal Bowel Sounds, Soft, Non-Tender Extremities: Normal Inspection Peripheral Pulses: 2+: Dorsalis Pedis (L), Dorsalis Pedis (R) Skin: Warm, Dry, Intact Wound/Incisions: Healing Well Neurological: No New Focal Deficit - Problem List & Annotations (1) Hip fracture, left SNOMED Code(s): 311537846 Code(s): S72.002A - FRACTURE OF UNSP PART OF NECK OF LEFT FEMUR, INIT Status: Acute Current Visit: Yes Qualifiers: Encounter type: subsequent encounter (2) Left humeral fracture SNOMED Code(s): 95472542 Code(s): S42.302A - UNSP FRACTURE OF SHAFT OF HUMERUS, LEFT ARM, INIT Status: Acute Current Visit: Yes Qualifiers: Encounter type: subsequent encounter Humerus Location: proximal Fracture type: closed Fracture alignment: displaced Fracture healing: with routine healing (3) Left radial fracture SNOMED Code(s): 67744049 Code(s): S52.92XA - UNSP FRACTURE OF LEFT FOREARM, INIT FOR CLOS FX Status : Acute Current Visit: Yes Qualifiers: Encounter type: subsequent encounter Radius location: distal Fracture type: closed Fracture morphology: unspecified fracture morphology Fracture healing: with routine healing Qualified Code(s): S52.502D - Unspecified fracture of the lower end of left radius, subsequent encounter for closed fracture with routine healing (4) Left rib fracture SNOMED Code(s): 93691467 Code(s): S22.32XA - FRACTURE OF ONE RIB, LEFT SIDE, INIT FOR CLOS FX Status : Acute Current Visit: Yes Qualifiers: Rib fracture type: multiple ribs Fracture type: closed Fracture healing: with routine healing (5) Multiple fractures of left upper extremity and ribs SNOMED Code(s): 65979407 Code(s): S42.302A - UNSP FRACTURE OF SHAFT OF HUMERUS, LEFT ARM, INIT; S22.42XA - MULTIPLE FRACTURES OF RIBS, LEFT SIDE, INIT FOR CLOS FX Status: Acute Current Visit: Yes Qualifiers: Encounter type: subsequent encounter - Problem List Review Problem List Initiated/Reviewed/Updated: Yes - Plan Plan:: Plan of care for PT/OT therapy. Orthopedics f/u here in the hospital. Will plan for Jose A or Dr. Campos f/u. Medications continued. No changes at this time. 08/18/17 PT setup for Wed with Jose A as Dr. Campos unable to come to [facility]. Patient will be sent via Transport and back for further management plan. 08/26/17 Patient will continue with PT/OT as directed by ortho. New orders are for patient to be full weight bearing from Ortho. We will continue current rehabilitation and pain management. 09/01/17 Continue current PT/OT. Will f/u with Ortho for evaluation and management of continued left hip discomfort. 09/15/17 No changes to management plan of care. Patient progress observed and improvement seen weekly.
[2017-09-15] MEDS: Simvastatin 40 MG Tab PO SCH (20:20)
[2017-09-15] MEDS: Latanoprost 0.005% Ophth Soln 2.5 ML Bottle EYEBOTH SCH (20:20)
[2017-09-15] MEDS: Oxybutynin 5 MG Tab.ER PO SCH (20:20)
[2017-09-15] MEDS: Calcitonin (Salmon) Nasal Spray 3.7 ML Bottle NAS SCH (20:21)
[2017-09-15] MEDS: Acetaminophen/HYDROcodone 325-5 MG Tab PO PRN (21:33)
[2017-09-16] MEDS: Polyethylene Glycol 3350 Powder 17 GM Packet PO SCH ×2 (08:26→20:26)
[2017-09-16] MEDS: Furosemide 40 MG Tab PO SCH (08:28)
[2017-09-16] MEDS: Naproxen 250 MG Tab PO SCH ×2 (08:28→20:27)
[2017-09-16] MEDS: Sennosides 8.6 MG Tab PO SCH (08:29)
[2017-09-16] MEDS: Ascorbic Acid 500 MG Tab PO SCH ×2 (08:29→17:18)
[2017-09-16] MEDS: Omeprazole 20 MG Cap.CR PO SCH (08:30)
[2017-09-16] MEDS: Ferrous Sulfate 325 MG Tab PO SCH ×2 (08:30→20:23)
[2017-09-16] MEDS: Docusate Sodium 100 MG Cap PO SCH ×2 (08:30→20:26)
[2017-09-16] MEDS: Lisinopril 10 MG Tab PO SCH (08:30)
[2017-09-16] MEDS: Acetaminophen 500 MG Tab PO SCH ×4 (08:31→20:31)
--- NOTE | 2017-09-16 10:15 | PCM.SN ---
- Free Text/Narrative Note: Patient seen on rounds. Patient has a mild cough. Nursing has concerns of left lower leg swelling that had improved and mostly resolved and now has returned. Patient denies any left leg or calf pain or tenderness. Patient has not been drinking as much but also has not been urinating as much. She has been on her feet more often. There is increased swelling of the whole leg which is likely just from increased use and post surgical changes but we will order a D-dimer as DVT is a low probabililty at this time. There is no erythema, no warmth or other changes to the left leg. Patient labs ordered and CXR ordered due to increase congestion of the left and right upper lobes. F/u results and CXR. If D-dimer is high we will order a US of left left leg.
[2017-09-16] MEDS: Acetaminophen/HYDROcodone 325-5 MG Tab PO PRN ×2 (13:59→21:53)
[2017-09-16] MEDS ORDERED: Enoxaparin 80 MG/0.8 ML Syringe ONE (14:36)
[2017-09-16] MEDS: Enoxaparin 80 MG/0.8 ML Syringe SUBCUT SCH ×2 (14:37→20:21)
[2017-09-16] MEDS: Calcitonin (Salmon) Nasal Spray 3.7 ML Bottle NAS SCH (20:24)
[2017-09-16] MEDS: Latanoprost 0.005% Ophth Soln 2.5 ML Bottle EYEBOTH SCH (20:26)
[2017-09-16] MEDS: Oxybutynin 5 MG Tab.ER PO SCH (20:27)
[2017-09-16] MEDS: Simvastatin 40 MG Tab PO SCH (20:28)
--- NOTE | 2017-09-17 00:46 | CR ---
DATE OF SERVICE: 09/16/2017 CLINICAL DATA: Cough. PA AND LATERAL CHEST: Comparison is made to a prior exam dated 01/27/2015. The heart size is normal. There is calcification of the aortic arch. The lungs are mildly hyperexpanded but clear. No pneumothorax. No pleural effusions. The patient is status post left shoulder arthroplasty. There is right convexity scoliosis of the mid and lower thoracic spine. IMPRESSION: Findings consistent with COPD. No acute abnormalities. [id number] [facility]
[2017-09-17] MEDS: Polyethylene Glycol 3350 Powder 17 GM Packet PO SCH ×2 (07:48→20:54)
[2017-09-17] MEDS: Naproxen 250 MG Tab PO SCH ×2 (07:48→20:20)
[2017-09-17] MEDS: Sennosides 8.6 MG Tab PO SCH (07:48)
[2017-09-17] MEDS: Ascorbic Acid 500 MG Tab PO SCH ×2 (07:49→21:35)
[2017-09-17] MEDS: Lisinopril 10 MG Tab PO SCH (07:49)
[2017-09-17] MEDS: Acetaminophen 500 MG Tab PO SCH ×4 (07:49→20:53)
[2017-09-17] MEDS: Ferrous Sulfate 325 MG Tab PO SCH ×2 (07:49→20:54)
[2017-09-17] MEDS: Omeprazole 20 MG Cap.CR PO SCH (07:49)
[2017-09-17] MEDS: Furosemide 40 MG Tab PO SCH (07:49)
[2017-09-17] MEDS: Docusate Sodium 100 MG Cap PO SCH ×2 (07:49→20:21)
[2017-09-17] MEDS: Enoxaparin 80 MG/0.8 ML Syringe SUBCUT SCH ×2 (07:49→20:20)
[2017-09-17] MEDS: Simvastatin 40 MG Tab PO SCH (20:21)
[2017-09-17] MEDS: Oxybutynin 5 MG Tab.ER PO SCH (20:53)
[2017-09-17] MEDS: Latanoprost 0.005% Ophth Soln 2.5 ML Bottle EYEBOTH SCH (20:55)
[2017-09-17] MEDS: Calcitonin (Salmon) Nasal Spray 3.7 ML Bottle NAS SCH (21:00)
[2017-09-17] MEDS: Acetaminophen/HYDROcodone 325-5 MG Tab PO PRN (21:02)
[2017-09-18] MEDS: Docusate Sodium 100 MG Cap PO SCH ×2 (08:06→20:15)
[2017-09-18] MEDS: Ascorbic Acid 500 MG Tab PO SCH ×2 (08:06→16:53)
[2017-09-18] MEDS: Furosemide 40 MG Tab PO SCH (08:06)
[2017-09-18] MEDS: Naproxen 250 MG Tab PO SCH ×2 (08:07→20:15)
[2017-09-18] MEDS: Sennosides 8.6 MG Tab PO SCH (08:07)
[2017-09-18] MEDS: Lisinopril 10 MG Tab PO SCH (08:07)
[2017-09-18] MEDS: Acetaminophen 500 MG Tab PO SCH ×4 (08:07→20:15)
[2017-09-18] MEDS: Omeprazole 20 MG Cap.CR PO SCH (08:07)
[2017-09-18] MEDS: Ferrous Sulfate 325 MG Tab PO SCH ×2 (08:08→20:16)
[2017-09-18] MEDS: Polyethylene Glycol 3350 Powder 17 GM Packet PO SCH ×2 (08:08→20:16)
[2017-09-18] MEDS: Enoxaparin 80 MG/0.8 ML Syringe SUBCUT SCH (08:08)
--- NOTE | 2017-09-18 11:10 | US ---
DATE OF SERVICE: 09/18/17 CLINICAL DATA: leg swelling with elevated D-Dimer LEFT LEG VENOUS DOPPLER: Negative for DVT. [id number] [facility]
[2017-09-18] MEDS: Acetaminophen/HYDROcodone 325-5 MG Tab PO PRN ×2 (13:31→20:27)
[2017-09-18] MEDS: Simvastatin 40 MG Tab PO SCH (20:15)
[2017-09-18] MEDS: Oxybutynin 5 MG Tab.ER PO SCH (20:16)
[2017-09-18] MEDS: Latanoprost 0.005% Ophth Soln 2.5 ML Bottle EYEBOTH SCH (20:16)
[2017-09-18] MEDS: Calcitonin (Salmon) Nasal Spray 3.7 ML Bottle NAS SCH (20:17)
[2017-09-19] MEDS: Polyethylene Glycol 3350 Powder 17 GM Packet PO SCH ×2 (08:24→20:45)
[2017-09-19] MEDS: Furosemide 40 MG Tab PO SCH (08:24)
[2017-09-19] MEDS: Ferrous Sulfate 325 MG Tab PO SCH ×2 (08:24→20:43)
[2017-09-19] MEDS: Docusate Sodium 100 MG Cap PO SCH ×2 (08:24→20:43)
[2017-09-19] MEDS: Lisinopril 10 MG Tab PO SCH (08:25)
[2017-09-19] MEDS: Omeprazole 20 MG Cap.CR PO SCH (08:25)
[2017-09-19] MEDS: Naproxen 250 MG Tab PO SCH ×2 (08:25→20:43)
[2017-09-19] MEDS: Ascorbic Acid 500 MG Tab PO SCH ×2 (08:26→16:59)
[2017-09-19] MEDS: Acetaminophen 500 MG Tab PO SCH ×4 (08:26→20:44)
[2017-09-19] MEDS: Sennosides 8.6 MG Tab PO SCH (08:26)
[2017-09-19] MEDS: Acetaminophen/HYDROcodone 325-5 MG Tab PO PRN (13:55)
[2017-09-19] MEDS: Simvastatin 40 MG Tab PO SCH (20:43)
[2017-09-19] MEDS: Calcitonin (Salmon) Nasal Spray 3.7 ML Bottle NAS SCH (20:44)
[2017-09-19] MEDS: Oxybutynin 5 MG Tab.ER PO SCH (20:44)
[2017-09-19] MEDS: Latanoprost 0.005% Ophth Soln 2.5 ML Bottle EYEBOTH SCH (20:44)
[2017-09-20] MEDS: Naproxen 250 MG Tab PO SCH ×2 (08:01→20:28)
[2017-09-20] MEDS: Acetaminophen 500 MG Tab PO SCH ×4 (08:01→20:29)
[2017-09-20] MEDS: Furosemide 40 MG Tab PO SCH (08:01)
[2017-09-20] MEDS: Docusate Sodium 100 MG Cap PO SCH ×2 (08:02→20:26)
[2017-09-20] MEDS: Lisinopril 10 MG Tab PO SCH (08:02)
[2017-09-20] MEDS: Sennosides 8.6 MG Tab PO SCH (08:09)
[2017-09-20] MEDS: Ascorbic Acid 500 MG Tab PO SCH ×2 (08:10→17:35)
[2017-09-20] MEDS: Omeprazole 20 MG Cap.CR PO SCH (08:11)
[2017-09-20] MEDS: Ferrous Sulfate 325 MG Tab PO SCH ×2 (08:11→20:29)
[2017-09-20] MEDS: Polyethylene Glycol 3350 Powder 17 GM Packet PO SCH ×2 (08:12→20:29)
[2017-09-20] MEDS: Magnesium Hydroxide 400 MG/5 ML Susp 30 ML Cup PO PRN (17:48)
[2017-09-20] MEDS: Calcitonin (Salmon) Nasal Spray 3.7 ML Bottle NAS SCH (20:24)
[2017-09-20] MEDS: Latanoprost 0.005% Ophth Soln 2.5 ML Bottle EYEBOTH SCH (20:25)
[2017-09-20] MEDS: Acetaminophen/HYDROcodone 325-5 MG Tab PO PRN (20:27)
[2017-09-20] MEDS: Oxybutynin 5 MG Tab.ER PO SCH (20:28)
[2017-09-20] MEDS: Simvastatin 40 MG Tab PO SCH (20:29)
[2017-09-21] MEDS: Furosemide 40 MG Tab PO SCH (07:46)
[2017-09-21] MEDS: Ascorbic Acid 500 MG Tab PO SCH ×2 (07:47→17:00)
[2017-09-21] MEDS: Lisinopril 10 MG Tab PO SCH (07:47)
[2017-09-21] MEDS: Ferrous Sulfate 325 MG Tab PO SCH ×2 (07:48→20:43)
[2017-09-21] MEDS: Omeprazole 20 MG Cap.CR PO SCH (07:48)
[2017-09-21] MEDS: Sennosides 8.6 MG Tab PO SCH (07:49)
[2017-09-21] MEDS: Docusate Sodium 100 MG Cap PO SCH ×2 (07:49→20:43)
[2017-09-21] MEDS: Naproxen 250 MG Tab PO SCH ×2 (07:49→20:43)
[2017-09-21] MEDS: Polyethylene Glycol 3350 Powder 17 GM Packet PO SCH ×2 (07:50→22:08)
[2017-09-21] MEDS: Acetaminophen 500 MG Tab PO SCH ×4 (07:51→20:44)
[2017-09-21] MEDS: Acetaminophen/HYDROcodone 325-5 MG Tab PO PRN ×2 (11:21→20:41)
[2017-09-21] MEDS: Simvastatin 40 MG Tab PO SCH (20:43)
[2017-09-21] MEDS: Oxybutynin 5 MG Tab.ER PO SCH (20:43)
[2017-09-21] MEDS: Calcitonin (Salmon) Nasal Spray 3.7 ML Bottle NAS SCH (20:44)
[2017-09-21] MEDS: Latanoprost 0.005% Ophth Soln 2.5 ML Bottle EYEBOTH SCH (20:44)
[2017-09-22] MEDS: Docusate Sodium 100 MG Cap PO SCH ×2 (08:01→20:51)
[2017-09-22] MEDS: Ferrous Sulfate 325 MG Tab PO SCH ×2 (08:02→20:51)
[2017-09-22] MEDS: Lisinopril 10 MG Tab PO SCH (08:02)
[2017-09-22] MEDS: Naproxen 250 MG Tab PO SCH ×2 (08:02→20:50)
[2017-09-22] MEDS: Omeprazole 20 MG Cap.CR PO SCH (08:02)
[2017-09-22] MEDS: Furosemide 40 MG Tab PO SCH (08:02)
[2017-09-22] MEDS: Ascorbic Acid 500 MG Tab PO SCH ×2 (08:03→16:53)
[2017-09-22] MEDS: Sennosides 8.6 MG Tab PO SCH (08:03)
[2017-09-22] MEDS: Acetaminophen 500 MG Tab PO SCH ×5 (08:10→20:51)
[2017-09-22] MEDS: Polyethylene Glycol 3350 Powder 17 GM Packet PO SCH ×2 (08:10→20:51)
[2017-09-22] MEDS: Acetaminophen/HYDROcodone 325-5 MG Tab PO PRN ×2 (08:38→20:55)
[2017-09-22] MEDS: Oxybutynin 5 MG Tab.ER PO SCH (20:50)
[2017-09-22] MEDS: Simvastatin 40 MG Tab PO SCH (20:51)
[2017-09-22] MEDS: Latanoprost 0.005% Ophth Soln 2.5 ML Bottle EYEBOTH SCH (20:52)
[2017-09-22] MEDS: Calcitonin (Salmon) Nasal Spray 3.7 ML Bottle NAS SCH (20:53)
[2017-09-23] MEDS: Sennosides 8.6 MG Tab PO SCH (07:21)
[2017-09-23] MEDS: Ascorbic Acid 500 MG Tab PO SCH ×2 (07:22→18:38)
[2017-09-23] MEDS: Docusate Sodium 100 MG Cap PO SCH ×2 (07:22→21:10)
[2017-09-23] MEDS: Furosemide 40 MG Tab PO SCH (07:22)
[2017-09-23] MEDS: Ferrous Sulfate 325 MG Tab PO SCH ×2 (07:22→21:10)
[2017-09-23] MEDS: Lisinopril 10 MG Tab PO SCH (07:23)
[2017-09-23] MEDS: Naproxen 250 MG Tab PO SCH ×2 (07:23→21:09)
[2017-09-23] MEDS: Omeprazole 20 MG Cap.CR PO SCH (07:23)
[2017-09-23] MEDS: Acetaminophen 500 MG Tab PO SCH ×4 (07:24→21:13)
[2017-09-23] MEDS: Polyethylene Glycol 3350 Powder 17 GM Packet PO SCH ×2 (07:28→21:12)
[2017-09-23] MEDS: Acetaminophen/HYDROcodone 325-5 MG Tab PO PRN ×2 (08:43→21:10)
--- NOTE | 2017-09-23 13:46 | PCM.PN ---
- General Info Date of Service: 09/22/17 Subjective Update: Patient improving. States her pain has improved gradually but she still has 4/ 10 pain of the left hip area and worsens with PT and use and then improves on rest. Patient denies other concerns today. No chest pain , no sob, no abdominal concerns or issues with BM or incontinence. - Review of Systems General: Reports: Weakness HEENT: Reports: No Symptoms Pulmonary: Reports: No Symptoms Cardiovascular: Reports: No Symptoms Gastrointestinal: Reports: No Symptoms Genitourinary: Reports: No Symptoms Musculoskeletal: Reports: Leg Pain, Joint Pain Skin: Reports: No Symptoms Neurological: Reports: No Symptoms - Patient Data Vitals - Most Recent: Last Vital Signs Temp 36.3 C 09/23/17 08:00 Pulse 66 09/23/17 08:00 Resp 16 09/22/17 08:00 BP 169/79 H 09/23/17 08:00 Pulse Ox 66 L 09/23/17 08:00 Weight - Most Recent: 76.566 kg Med Orders - Current: Current Medications Acetaminophen (Tylenol Extra Strength) 500 mg PO QID [facility] Last Admin: 09/23/17 07:24 Dose: Not Given Hydrocodone Bitart/Acetaminophen ([place] 325-5 Mg) 1 - 2 tab PO Q4H PRN PRN Reason: PAIN Last Admin: 09/23/17 08:43 Dose: 2 tab Ascorbic Acid (Vitamin C) 250 mg PO BIDMEALS [facility] Last Admin: 09/23/17 07:22 Dose: 250 mg Bisacodyl (Dulcolax) 10 mg RECTAL DAILY PRN PRN Reason: Constipation Buprenorphine (Butrans) 10 mcg TD Q7D [facility] Last Admin: 09/16/17 20:21 Dose: 10 mcg Calcitonin [place] (Miacalcin Nasal [place]) 0 ml [place] DAILY@1999 [facility] Last Admin: 09/22/17 20:53 Dose: 1 sprays(dnu) Docusate Sodium (Colace) 100 mg PO BID [facility] Last Admin: 09/23/17 07:22 Dose: 100 mg Ferrous Sulfate (Ferrous Sulfate) 325 mg PO BID [facility] Last Admin: 09/23/17 07:22 Dose: 325 mg Furosemide (Lasix) 40 mg PO DAILY [facility] Last Admin: 09/23/17 07:22 Dose: 40 mg Latanoprost (Xalatan 0.005% Ophth Soln) 2.5 ml EYEBOTH BEDTIME [facility] Last Admin: 09/22/17 20:52 Dose: 1 drop Lisinopril (Prinivil) 20 mg PO DAILY [facility] Last Admin: 09/23/17 07:23 Dose: 20 mg Magnesium Hydroxide (Milk Of Magnesia) 30 ml PO DAILY PRN PRN Reason: Constipation Last Admin: 09/20/17 17:48 Dose: 30 ml Miscellaneous Information (Remove Patch) 1 ea TRDERM Q7D [facility] Last Admin: 09/16/17 20:28 Dose: 1 ea Naproxen (Naprosyn) 250 mg PO Q12HR [facility] Last Admin: 09/23/17 07:23 Dose: 250 mg Nystatin (Nystop) 1 gm TOP BID PRN PRN Reason: Rash Omeprazole (Omeprazole) 20 mg PO DAILY [facility] Last Admin: 09/23/17 07:23 Dose: 20 mg Oxybutynin Chloride (Oxybutynin Er) 5 mg PO BEDTIME [facility] Last Admin: 09/22/17 20:50 Dose: 5 mg Polyethylene Glycol (Miralax) 17 gm PO BID [facility] Last Admin: 09/23/17 07:28 Dose: Not Given Senna (Senna) 17.2 mg PO DAILY [facility] Last Admin: 09/23/17 07:21 Dose: 17.2 mg Simvastatin (Zocor) 40 mg PO BEDTIME [facility] Last Admin: 09/22/17 20:51 Dose: 40 mg Discontinued Medications Acetaminophen (Tylenol Extra Strength) 500 mg .ROUTE .STK-MED ONE Stop: 07/29/17 12:01 Acetaminophen (Tylenol Extra Strength) 500 mg .ROUTE .STK-MED ONE Stop: 07/29/17 12:01 Acetaminophen (Tylenol Extra Strength) Confirm Administered Dose 500 mg .ROUTE .STK-MED ONE Stop: 08/04/17 20:23 Last Admin: 08/04/17 20:28 Dose: Not Given Hydrocodone Bitart/Acetaminophen ([place] 325-5 Mg) 3 tab PO BID [facility] Last Admin: 07/24/17 08:51 Dose: 3 tab Hydrocodone Bitart/Acetaminophen ([place] 325-5 Mg) 1 tab PO Q4H PRN PRN Reason: Pain Amlodipine Besylate (Norvasc) 5 mg PO DAILY [facility] Last Admin: 01/17/18 08:19 Dose: Not Given Amlodipine Besylate (Norvasc) 5 mg .ROUTE .STK-MED ONE Stop: 07/29/17 12:01 Ascorbic Acid (Vitamin C) 500 mg .ROUTE .STK-MED ONE Stop: 07/29/17 12:01 Calcitonin [place] (Miacalcin Nasal [place]) 0 ml [place] DAILY [facility] Last Admin: 07/28/17 08:24 Dose: Not Given Calcitonin [place] (Miacalcin Nasal [place]) 0 ml [place] DAILY [facility] Last Admin: 07/29/17 20:30 Dose: 1 spray Calcium Carbonate (Calcium Carbonate/Vitamin D 1500 Mg-200 Unit) 1 tab PO BIDMEALS [facility] Last Admin: 07/31/17 17:00 Dose: Not Given Calcium Carbonate (Caltrate 600+D 1500 Mg-400 Units) 1 tab PO BIDMEALS [facility] Last Admin: 09/05/17 10:41 Dose: Not Given Docusate Sodium (Colace) 100 mg .ROUTE .STK-MED ONE Stop: 07/29/17 12:01 Docusate Sodium (Colace) Confirm Administered Dose 100 mg .ROUTE .[facility] ONE Stop: 08/04/17 20:25 Last Admin: 08/04/17 20:28 Dose: Not Given Enoxaparin Sodium (Lovenox) 80 mg SUBCUT DAILY [facility] Enoxaparin Sodium (Lovenox) 40 mg SUBCUT DAILY [facility] Last Admin: 08/26/17 07:32 Dose: 40 mg Enoxaparin Sodium (Lovenox) 40 mg .ROUTE .STK-MED ONE Stop: 07/29/17 12:01 Enoxaparin Sodium (Lovenox) 80 mg 1 mg/kg (80 mg) SUBCUT BID [facility] Last Admin: 09/18/17 08:08 Dose: 80 mg Enoxaparin Sodium (Lovenox) Confirm Administered Dose 80 mg .ROUTE .STK-MED ONE Stop: 09/16/17 14:37 Last Admin: 09/16/17 15:10 Dose: Not Given Epoetin [place] (Procrit) 20,000 units SUBCUT .WEEKLY [facility] Last Admin: 07/26/17 08:40 Dose: 20,000 units Epoetin [place] (Procrit) 20,000 units SUBCUT Mo [facility] Last Admin: 08/25/17 12:13 Dose: 20,000 units Ferrous Sulfate (Ferrous Sulfate) 325 mg .ROUTE .STK-MED ONE Stop: 07/29/17 12:01 Ferrous Sulfate (Ferrous Sulfate) Confirm Administered Dose 325 mg .ROUTE .[facility] ONE Stop: 08/04/17 20:24 Last Admin: 08/04/17 20:28 Dose: Not Given Latanoprost (Xalatan 0.005% Ophth Soln) 0 ml EYEBOTH BEDTIME [facility] Last Admin: 08/17/17 20:53 Dose: 1 drop Latanoprost (Xalatan 0.005% Ophth Soln) 2.5 ml .ROUTE .STK-MED ONE Stop: 08/16/17 10:06 Lisinopril (Prinivil) 20 mg PO DAILY [facility] Last Admin: 08/12/17 13:16 Dose: 10 mg Lisinopril (Prinivil) 20 mg .ROUTE .STK-MED ONE Stop: 07/29/17 12:01 Lisinopril (Prinivil) 10 mg PO DAILY [facility] Last Admin: 09/22/17 08:02 Dose: 10 mg Miscellaneous Information (Remove Patch) 1 ea TRDERM .WEEKLY [facility] Miscellaneous Information (Remove Patch) 1 ea TRDERM Q7D [facility] Last Admin: 08/19/17 21:09 Dose: 1 ea Naproxen (Naprosyn) Confirm Administered Dose 250 mg .ROUTE .[facility] ONE Stop: 09/02/17 16:58 Last Admin: 09/02/17 19:15 Dose: Not Given Butrans 10mcg Patch 1 each TOP .WEEKLY [facility] Last Admin: 07/29/17 20:45 Dose: 1 each Butrans 10mcg Patch 1 each TOP .WEEKLY [facility] Butrans 10mcg Patch 1 each TOP Q7D [facility] Last Admin: 08/19/17 21:09 Dose: 1 each Nystatin (Nystop) 0 gm TOP BID [facility] Last Admin: 08/27/17 08:17 Dose: Not Given Nystatin (Nystop) Confirm Administered Dose 15 gm .ROUTE .STK-MED ONE Stop: 07/24/17 17:35 Last Admin: 07/24/17 18:43 Dose: Not Given Omeprazole (Omeprazole) 20 mg .ROUTE .STK-MED ONE Stop: 07/29/17 12:01 Oxybutynin Chloride (Oxybutynin) Confirm Administered Dose 5 mg .ROUTE .STK-MED ONE Stop: 09/07/17 19:16 Last Admin: 09/07/17 20:07 Dose: 5 mg Oxybutynin Chloride (Oxybutynin) Confirm Administered Dose 5 mg .ROUTE .STK-MED ONE Stop: 09/08/17 20:11 Last Admin: 09/08/17 20:16 Dose: Not Given Polyethylene Glycol (Miralax) 17 gm PO DAILY PRN PRN Reason: Constipation Last Admin: 09/03/17 15:25 Dose: 17 gm Polyethylene Glycol (Miralax) Confirm Administered Dose 17 gm .ROUTE .STK-MED ONE Stop: 09/05/17 12:20 Last Admin: 09/05/17 12:24 Dose: Not Given Senna (Senna) 17.2 mg .ROUTE .STK-MED ONE Stop: 07/29/17 12:01 Senna (Senna) Confirm Administered Dose 8.6 mg .ROUTE .STK-MED ONE Stop: 09/06/17 08:00 Last Admin: 09/06/17 08:05 Dose: Not Given Simvastatin (Zocor) Confirm Administered Dose 40 mg .ROUTE .STK-MED ONE Stop: 08/04/17 20:23 Last Admin: 08/04/17 20:28 Dose: Not Given Tuberculin PPD (Aplisol) 5 unit IDERM ONETIME ONE Stop: 07/23/17 17:04 Last Admin: 07/23/17 20:23 Dose: 5 unit - Exam General: Alert, Oriented, Cooperative HEENT: Pupils Equal, Pupils Reactive Neck: Supple Lungs: Clear to Auscultation, Normal Respiratory Effort Cardiovascular: Regular Rate, Regular Rhythm Back Exam: Normal Inspection Extremities: Joint Swelling (left lower leg) Peripheral Pulses: 2+: Dorsalis Pedis (L), Dorsalis Pedis (R) Skin: Warm, Dry, Intact Neurological: No New Focal Deficit - Problem List & Annotations (1) Hip fracture, left SNOMED Code(s): 315955291 Code(s): S72.002A - FRACTURE OF UNSP PART OF NECK OF LEFT FEMUR, INIT Status: Acute Current Visit: Yes Qualifiers: Encounter type: subsequent encounter (2) Left humeral fracture SNOMED Code(s): 05805439 Code(s): S42.302A - UNSP FRACTURE OF SHAFT OF HUMERUS, LEFT ARM, INIT Status: Acute Current Visit: Yes Qualifiers: Encounter type: subsequent encounter Humerus Location: proximal Fracture type: closed Fracture alignment: displaced Fracture healing: with routine healing (3) Left radial fracture SNOMED Code(s): 75570649 Code(s): S52.92XA - UNSP FRACTURE OF LEFT FOREARM, INIT FOR CLOS FX Status : Acute Current Visit: Yes Qualifiers: Encounter type: subsequent encounter Radius location: distal Fracture type: closed Fracture morphology: unspecified fracture morphology Fracture healing: with routine healing Qualified Code(s): S52.502D - Unspecified fracture of the lower end of left radius, subsequent encounter for closed fracture with routine healing (4) Left rib fracture SNOMED Code(s): 20592306 Code(s): S22.32XA - FRACTURE OF ONE RIB, LEFT SIDE, INIT FOR CLOS FX Status : Acute Current Visit: Yes Qualifiers: Rib fracture type: multiple ribs Fracture type: closed Fracture healing: with routine healing (5) Multiple fractures of left upper extremity and ribs SNOMED Code(s): 04439254 Code(s): S42.302A - UNSP FRACTURE OF SHAFT OF HUMERUS, LEFT ARM, INIT; S22.42XA - MULTIPLE FRACTURES OF RIBS, LEFT SIDE, INIT FOR CLOS FX Status: Acute Current Visit: Yes Qualifiers: Encounter type: subsequent encounter - Problem List Review Problem List Initiated/Reviewed/Updated: Yes - Plan Plan:: Plan of care for PT/OT therapy. Orthopedics f/u here in the hospital. Will plan for Jose A or Dr. Campos f/u. Medications continued. No changes at this time. 08/18/17 PT setup for Wed with Jose A as Dr. Campos unable to come to [facility]. Patient will be sent via Transport and back for further management plan. 08/26/17 Patient will continue with PT/OT as directed by ortho. New orders are for patient to be full weight bearing from Ortho. We will continue current rehabilitation and pain management. 09/01/17 Continue current PT/OT. Will f/u with Ortho for evaluation and management of continued left hip discomfort. 09/22/17 No changes with current PT/OT management. Good improvement and increasing strength with transfers and walking. Pain remains a concern with use and standing. Continue f/u with Ortho.
[2017-09-23] MEDS: Simvastatin 40 MG Tab PO SCH (21:09)
[2017-09-23] MEDS: Oxybutynin 5 MG Tab.ER PO SCH (21:12)
[2017-09-23] MEDS: Latanoprost 0.005% Ophth Soln 2.5 ML Bottle EYEBOTH SCH (21:13)
[2017-09-23] MEDS: Calcitonin (Salmon) Nasal Spray 3.7 ML Bottle NAS SCH (21:14)
[2017-09-24] MEDS: Polyethylene Glycol 3350 Powder 17 GM Packet PO SCH ×2 (08:20→19:50)
[2017-09-24] MEDS: Sennosides 8.6 MG Tab PO SCH (08:21)
[2017-09-24] MEDS: Ferrous Sulfate 325 MG Tab PO SCH ×2 (08:21→20:23)
[2017-09-24] MEDS: Docusate Sodium 100 MG Cap PO SCH ×2 (08:21→19:48)
[2017-09-24] MEDS: Acetaminophen 500 MG Tab PO SCH ×4 (08:22→19:48)
[2017-09-24] MEDS: Furosemide 40 MG Tab PO SCH (08:22)
[2017-09-24] MEDS: Naproxen 250 MG Tab PO SCH ×2 (08:22→19:49)
[2017-09-24] MEDS: Ascorbic Acid 500 MG Tab PO SCH ×2 (08:22→17:38)
[2017-09-24] MEDS: Omeprazole 20 MG Cap.CR PO SCH (08:22)
[2017-09-24] MEDS: Lisinopril 10 MG Tab PO SCH (08:22)
[2017-09-24] MEDS: Simvastatin 40 MG Tab PO SCH (19:49)
[2017-09-24] MEDS: Calcitonin (Salmon) Nasal Spray 3.7 ML Bottle NAS SCH (19:52)
[2017-09-24] MEDS ORDERED: Oxybutynin 5 MG Tab.ER ONE (19:56)
[2017-09-24] MEDS: Latanoprost 0.005% Ophth Soln 2.5 ML Bottle EYEBOTH SCH (19:56)
[2017-09-25] MEDS: Docusate Sodium 100 MG Cap PO SCH ×2 (08:10→19:05)
[2017-09-25] MEDS: Ascorbic Acid 500 MG Tab PO SCH ×2 (08:10→17:53)
[2017-09-25] MEDS: Sennosides 8.6 MG Tab PO SCH (08:10)
[2017-09-25] MEDS: Ferrous Sulfate 325 MG Tab PO SCH ×2 (08:10→19:05)
[2017-09-25] MEDS: Naproxen 250 MG Tab PO SCH ×2 (08:10→19:05)
[2017-09-25] MEDS: Lisinopril 10 MG Tab PO SCH (08:12)
[2017-09-25] MEDS: Furosemide 40 MG Tab PO SCH (08:12)
[2017-09-25] MEDS: Polyethylene Glycol 3350 Powder 17 GM Packet PO SCH ×2 (08:12→19:15)
[2017-09-25] MEDS: Omeprazole 20 MG Cap.CR PO SCH (08:12)
[2017-09-25] MEDS: Acetaminophen 500 MG Tab PO SCH ×4 (08:14→19:06)
[2017-09-25] MEDS: Acetaminophen/HYDROcodone 325-5 MG Tab PO PRN (09:39)
[2017-09-25] MEDS: Simvastatin 40 MG Tab PO SCH (19:05)
[2017-09-25] MEDS: Oxybutynin 5 MG Tab.ER PO SCH (19:05)
[2017-09-25] MEDS: Calcitonin (Salmon) Nasal Spray 3.7 ML Bottle NAS SCH (19:14)
[2017-09-25] MEDS: Latanoprost 0.005% Ophth Soln 2.5 ML Bottle EYEBOTH SCH (19:14)
[2017-09-26] MEDS: Sennosides 8.6 MG Tab PO SCH (07:18)
[2017-09-26] MEDS: Ascorbic Acid 500 MG Tab PO SCH ×2 (07:18→16:28)
[2017-09-26] MEDS: Lisinopril 10 MG Tab PO SCH (07:19)
[2017-09-26] MEDS: Naproxen 250 MG Tab PO SCH ×2 (07:19→21:10)
[2017-09-26] MEDS: Omeprazole 20 MG Cap.CR PO SCH (07:19)
[2017-09-26] MEDS: Acetaminophen 500 MG Tab PO SCH ×4 (07:19→21:10)
[2017-09-26] MEDS: Furosemide 40 MG Tab PO SCH (07:20)
[2017-09-26] MEDS: Docusate Sodium 100 MG Cap PO SCH ×2 (07:20→21:10)
[2017-09-26] MEDS: Polyethylene Glycol 3350 Powder 17 GM Packet PO SCH ×2 (07:20→21:10)
[2017-09-26] MEDS: Ferrous Sulfate 325 MG Tab PO SCH ×2 (07:20→21:10)
[2017-09-26] MEDS: Calcitonin (Salmon) Nasal Spray 3.7 ML Bottle NAS SCH (21:10)
[2017-09-26] MEDS: Simvastatin 40 MG Tab PO SCH (21:10)
[2017-09-26] MEDS: Latanoprost 0.005% Ophth Soln 2.5 ML Bottle EYEBOTH SCH (21:11)
[2017-09-26] MEDS: Oxybutynin 5 MG Tab.ER PO SCH (21:11)
[2017-09-27] MEDS: Lisinopril 10 MG Tab PO SCH (07:39)
[2017-09-27] MEDS: Furosemide 40 MG Tab PO SCH (07:40)
[2017-09-27] MEDS: Omeprazole 20 MG Cap.CR PO SCH (07:40)
[2017-09-27] MEDS: Ascorbic Acid 500 MG Tab PO SCH ×2 (07:40→20:20)
[2017-09-27] MEDS: Docusate Sodium 100 MG Cap PO SCH ×2 (07:40→20:21)
[2017-09-27] MEDS: Acetaminophen 500 MG Tab PO SCH ×4 (07:41→20:22)
[2017-09-27] MEDS: Ferrous Sulfate 325 MG Tab PO SCH ×2 (07:41→20:22)
[2017-09-27] MEDS: Naproxen 250 MG Tab PO SCH ×2 (07:42→20:23)
[2017-09-27] MEDS: Sennosides 8.6 MG Tab PO SCH (07:42)
[2017-09-27] MEDS: Acetaminophen/HYDROcodone 325-5 MG Tab PO PRN (12:25)
[2017-09-27] MEDS: Polyethylene Glycol 3350 Powder 17 GM Packet PO SCH ×2 (19:39→20:24)
[2017-09-27] MEDS: Oxybutynin 5 MG Tab.ER PO SCH (20:22)
[2017-09-27] MEDS: Simvastatin 40 MG Tab PO SCH (20:23)
[2017-09-27] MEDS: Latanoprost 0.005% Ophth Soln 2.5 ML Bottle EYEBOTH SCH (20:24)
[2017-09-27] MEDS: Calcitonin (Salmon) Nasal Spray 3.7 ML Bottle NAS SCH (20:25)
[2017-09-28] MEDS: Ascorbic Acid 500 MG Tab PO SCH ×2 (08:07→17:22)
[2017-09-28] MEDS: Sennosides 8.6 MG Tab PO SCH (08:08)
[2017-09-28] MEDS: Omeprazole 20 MG Cap.CR PO SCH (08:08)
[2017-09-28] MEDS: Furosemide 40 MG Tab PO SCH (08:08)
[2017-09-28] MEDS: Ferrous Sulfate 325 MG Tab PO SCH ×2 (08:08→21:42)
[2017-09-28] MEDS: Naproxen 250 MG Tab PO SCH ×2 (08:09→21:42)
[2017-09-28] MEDS: Lisinopril 10 MG Tab PO SCH (08:09)
[2017-09-28] MEDS: Docusate Sodium 100 MG Cap PO SCH ×2 (08:09→21:42)
[2017-09-28] MEDS: Acetaminophen 500 MG Tab PO SCH ×4 (08:10→21:43)
[2017-09-28] MEDS: Polyethylene Glycol 3350 Powder 17 GM Packet PO SCH ×2 (08:10→21:47)
[2017-09-28] MEDS: Latanoprost 0.005% Ophth Soln 2.5 ML Bottle EYEBOTH SCH (21:42)
[2017-09-28] MEDS: Simvastatin 40 MG Tab PO SCH (21:43)
[2017-09-28] MEDS: Oxybutynin 5 MG Tab.ER PO SCH (21:43)
[2017-09-28] MEDS: Acetaminophen/HYDROcodone 325-5 MG Tab PO PRN (21:44)
[2017-09-28] MEDS: Calcitonin (Salmon) Nasal Spray 3.7 ML Bottle NAS SCH (21:48)
[2017-09-29] MEDS: Naproxen 250 MG Tab PO SCH ×2 (07:20→20:09)
[2017-09-29] MEDS: Omeprazole 20 MG Cap.CR PO SCH (07:21)
[2017-09-29] MEDS: Sennosides 8.6 MG Tab PO SCH (07:21)
[2017-09-29] MEDS: Lisinopril 10 MG Tab PO SCH (07:21)
[2017-09-29] MEDS: Polyethylene Glycol 3350 Powder 17 GM Packet PO SCH ×2 (07:22→20:10)
[2017-09-29] MEDS: Docusate Sodium 100 MG Cap PO SCH ×2 (07:22→20:09)
[2017-09-29] MEDS: Ferrous Sulfate 325 MG Tab PO SCH ×2 (07:22→20:09)
[2017-09-29] MEDS: Ascorbic Acid 500 MG Tab PO SCH ×2 (07:22→16:56)
[2017-09-29] MEDS: Furosemide 40 MG Tab PO SCH (07:22)
[2017-09-29] MEDS: Acetaminophen 500 MG Tab PO SCH ×4 (07:23→20:10)
[2017-09-29] MEDS: Acetaminophen/HYDROcodone 325-5 MG Tab PO PRN (09:11)
[2017-09-29] MEDS: Simvastatin 40 MG Tab PO SCH (20:09)
[2017-09-29] MEDS: Oxybutynin 5 MG Tab.ER PO SCH (20:10)
[2017-09-29] MEDS: Latanoprost 0.005% Ophth Soln 2.5 ML Bottle EYEBOTH SCH (20:10)
[2017-09-29] MEDS: Calcitonin (Salmon) Nasal Spray 3.7 ML Bottle NAS SCH (20:10)
[2017-09-30] MEDS: Ascorbic Acid 500 MG Tab PO SCH ×2 (08:31→16:51)
[2017-09-30] MEDS: Ferrous Sulfate 325 MG Tab PO SCH ×2 (08:31→20:41)
[2017-09-30] MEDS: Naproxen 250 MG Tab PO SCH ×2 (08:32→20:41)
[2017-09-30] MEDS: Omeprazole 20 MG Cap.CR PO SCH (08:32)
[2017-09-30] MEDS: Docusate Sodium 100 MG Cap PO SCH ×2 (08:32→20:41)
[2017-09-30] MEDS: Furosemide 40 MG Tab PO SCH (08:32)
[2017-09-30] MEDS: Acetaminophen 500 MG Tab PO SCH ×4 (08:33→20:40)
[2017-09-30] MEDS: Sennosides 8.6 MG Tab PO SCH (08:33)
[2017-09-30] MEDS: Lisinopril 10 MG Tab PO SCH (08:34)
[2017-09-30] MEDS: Polyethylene Glycol 3350 Powder 17 GM Packet PO SCH ×2 (08:36→20:48)
[2017-09-30] MEDS: Acetaminophen/HYDROcodone 325-5 MG Tab PO PRN (12:14)
[2017-09-30] MEDS: Oxybutynin 5 MG Tab.ER PO SCH (20:41)
[2017-09-30] MEDS: Latanoprost 0.005% Ophth Soln 2.5 ML Bottle EYEBOTH SCH (20:41)
[2017-09-30] MEDS: Simvastatin 40 MG Tab PO SCH (20:41)
[2017-09-30] MEDS: Calcitonin (Salmon) Nasal Spray 3.7 ML Bottle NAS SCH (20:48)
[2017-10-01] MEDS: Ascorbic Acid 500 MG Tab PO SCH ×2 (07:30→17:52)
[2017-10-01] MEDS: Docusate Sodium 100 MG Cap PO SCH ×2 (07:51→21:04)
[2017-10-01] MEDS: Furosemide 40 MG Tab PO SCH (07:52)
[2017-10-01] MEDS: Ferrous Sulfate 325 MG Tab PO SCH ×2 (07:52→21:04)
[2017-10-01] MEDS: Polyethylene Glycol 3350 Powder 17 GM Packet PO SCH ×2 (07:53→21:05)
[2017-10-01] MEDS: Naproxen 250 MG Tab PO SCH ×2 (07:54→21:04)
[2017-10-01] MEDS: Omeprazole 20 MG Cap.CR PO SCH (07:54)
[2017-10-01] MEDS: Lisinopril 10 MG Tab PO SCH (07:54)
[2017-10-01] MEDS: Sennosides 8.6 MG Tab PO SCH (07:55)
[2017-10-01] MEDS: Acetaminophen 500 MG Tab PO SCH ×4 (07:56→21:04)
[2017-10-01] MEDS: Latanoprost 0.005% Ophth Soln 2.5 ML Bottle EYEBOTH SCH (21:04)
[2017-10-01] MEDS: Simvastatin 40 MG Tab PO SCH (21:04)
[2017-10-01] MEDS: Oxybutynin 5 MG Tab.ER PO SCH (21:04)
[2017-10-01] MEDS: Calcitonin (Salmon) Nasal Spray 3.7 ML Bottle NAS SCH (21:05)
[2017-10-02] MEDS: Polyethylene Glycol 3350 Powder 17 GM Packet PO SCH (08:01)
[2017-10-02] MEDS: Omeprazole 20 MG Cap.CR PO SCH (08:01)
[2017-10-02] MEDS: Lisinopril 10 MG Tab PO SCH (08:01)
[2017-10-02] MEDS: Acetaminophen 500 MG Tab PO SCH ×2 (08:02→12:30)
[2017-10-02] MEDS: Naproxen 250 MG Tab PO SCH (08:02)
[2017-10-02] MEDS: Ferrous Sulfate 325 MG Tab PO SCH (08:03)
[2017-10-02] MEDS: Sennosides 8.6 MG Tab PO SCH (08:03)
[2017-10-02] MEDS: Furosemide 40 MG Tab PO SCH (08:03)
[2017-10-02] MEDS: Ascorbic Acid 500 MG Tab PO SCH (08:03)
[2017-10-02] MEDS: Docusate Sodium 100 MG Cap PO SCH (08:04)
--- NOTE | 2017-10-02 09:23 | PCM.PN ---
- General Info Date of Service: 09/30/17 Subjective Update: Patient is doing well and planning for placement. She has some tenderness with movement but overall has greatly improved in transfers, walking and movement without as much pain. Functional Status: Reports: Pain Controlled, Tolerating Diet, Ambulating - Review of Systems General: Reports: Weakness HEENT: Reports: No Symptoms Pulmonary: Reports: No Symptoms Cardiovascular: Reports: No Symptoms Gastrointestinal: Reports: No Symptoms Genitourinary: Reports: No Symptoms Musculoskeletal: Reports: Joint Pain Neurological: Reports: No Symptoms - Patient Data Vitals - Most Recent: Last Vital Signs Temp 36.8 C 09/30/17 08:00 Pulse 69 10/01/17 08:00 Resp 12 10/01/17 08:00 BP 179/68 H 10/02/17 08:01 Pulse Ox 99 09/30/17 08:00 Weight - Most Recent: 76.294 kg Med Orders - Current: Current Medications Acetaminophen (Tylenol Extra Strength) 500 mg PO QID [facility] Last Admin: 10/02/17 08:02 Dose: 500 mg Hydrocodone Bitart/Acetaminophen ([place] 325-5 Mg) 1 - 2 tab PO Q4H PRN PRN Reason: PAIN Last Admin: 09/30/17 12:14 Dose: 1 tab Ascorbic Acid (Vitamin C) 250 mg PO BIDMEALS [facility] Last Admin: 10/02/17 08:03 Dose: 250 mg Bisacodyl (Dulcolax) 10 mg RECTAL DAILY PRN PRN Reason: Constipation Buprenorphine (Butrans) 10 mcg TD Q7D [facility] Last Admin: 09/30/17 20:47 Dose: 10 mcg Calcitonin [place] (Miacalcin Nasal [place]) 0 ml MADE[place]INE DAILY@1999 [facility] Last Admin: 10/01/17 21:05 Dose: 1 sprays(dnu) Docusate Sodium (Colace) 100 mg PO BID [facility] Last Admin: 10/02/17 08:04 Dose: 100 mg Ferrous Sulfate (Ferrous Sulfate) 325 mg PO BID [facility] Last Admin: 10/02/17 08:03 Dose: 325 mg Furosemide (Lasix) 40 mg PO DAILY [facility] Last Admin: 10/02/17 08:03 Dose: 40 mg Latanoprost (Xalatan 0.005% Ophth Soln) 2.5 ml EYEBOTH BEDTIME [facility] Last Admin: 10/01/17 21:04 Dose: 1 drop Lisinopril (Prinivil) 20 mg PO DAILY [facility] Last Admin: 10/02/17 08:01 Dose: 20 mg Magnesium Hydroxide (Milk Of Magnesia) 30 ml PO DAILY PRN PRN Reason: Constipation Last Admin: 09/20/17 17:48 Dose: 30 ml Miscellaneous Information (Remove Patch) 1 ea TRDERM Q7D [facility] Last Admin: 09/30/17 20:48 Dose: 1 ea Naproxen (Naprosyn) 250 mg PO Q12HR [facility] Last Admin: 10/02/17 08:02 Dose: 250 mg Nystatin (Nystop) 1 gm TOP BID PRN PRN Reason: Rash Omeprazole (Omeprazole) 20 mg PO DAILY [facility] Last Admin: 10/02/17 08:01 Dose: 20 mg Oxybutynin Chloride (Oxybutynin Er) 5 mg PO BEDTIME [facility] Last Admin: 10/01/17 21:04 Dose: 5 mg Polyethylene Glycol (Miralax) 17 gm PO BID [facility] Last Admin: 10/02/17 08:01 Dose: 17 gm Senna (Senna) 17.2 mg PO DAILY [facility] Last Admin: 10/02/17 08:03 Dose: 17.2 mg Simvastatin (Zocor) 40 mg PO BEDTIME [facility] Last Admin: 10/01/17 21:04 Dose: 40 mg Discontinued Medications Acetaminophen (Tylenol Extra Strength) 500 mg .ROUTE .STK-MED ONE Stop: 07/29/17 12:01 Acetaminophen (Tylenol Extra Strength) 500 mg .ROUTE .STK-MED ONE Stop: 07/29/17 12:01 Acetaminophen (Tylenol Extra Strength) Confirm Administered Dose 500 mg .ROUTE .STK-MED ONE Stop: 08/04/17 20:23 Last Admin: 08/04/17 20:28 Dose: Not Given Hydrocodone Bitart/Acetaminophen ([place] 325-5 Mg) 3 tab PO BID [facility] Last Admin: 07/24/17 08:51 Dose: 3 tab Hydrocodone Bitart/Acetaminophen ([place] 325-5 Mg) 1 tab PO Q4H PRN PRN Reason: Pain Amlodipine Besylate (Norvasc) 5 mg PO DAILY [facility] Last Admin: 08/27/17 08:19 Dose: Not Given Amlodipine Besylate (Norvasc) 5 mg .ROUTE .STK-MED ONE Stop: 07/29/17 12:01 Ascorbic Acid (Vitamin C) 500 mg .ROUTE .[facility] ONE Stop: 07/29/17 12:01 Calcitonin [place] (Miacalcin Nasal [place]) 0 ml MADELEINE DAILY [facility] Last Admin: 07/28/17 08:24 Dose: Not Given Calcitonin [place] (Miacalcin Nasal [place]) 0 ml [place] DAILY [facility] Last Admin: 07/29/17 20:30 Dose: 1 spray Calcium Carbonate (Calcium Carbonate/Vitamin D 1500 Mg-200 Unit) 1 tab PO BIDMEALS [facility] Last Admin: 07/31/17 17:00 Dose: Not Given Calcium Carbonate (Caltrate 600+D 1500 Mg-400 Units) 1 tab PO BIDMEALS [facility] Last Admin: 09/05/17 10:41 Dose: Not Given Docusate Sodium (Colace) 100 mg .ROUTE .[facility] ONE Stop: 07/29/17 12:01 Docusate Sodium (Colace) Confirm Administered Dose 100 mg .ROUTE .[facility] ONE Stop: 08/04/17 20:25 Last Admin: 08/04/17 20:28 Dose: Not Given Enoxaparin Sodium (Lovenox) 80 mg SUBCUT DAILY [facility] Enoxaparin Sodium (Lovenox) 40 mg SUBCUT DAILY [facility] Last Admin: 08/26/17 07:32 Dose: 40 mg Enoxaparin Sodium (Lovenox) 40 mg .ROUTE .[facility] ONE Stop: 07/29/17 12:01 Enoxaparin Sodium (Lovenox) 80 mg 1 mg/kg (80 mg) SUBCUT BID [facility] Last Admin: 09/18/17 08:08 Dose: 80 mg Enoxaparin Sodium (Lovenox) Confirm Administered Dose 80 mg .ROUTE .[facility]-MED ONE Stop: 09/16/17 14:37 Last Admin: 09/16/17 15:10 Dose: Not Given Epoetin Nicholas (Procrit) 20,000 units SUBCUT .WEEKLY [facility] Last Admin: 07/26/17 08:40 Dose: 20,000 units Epoetin Nicholas (Procrit) 20,000 units SUBCUT Mo [facility] Last Admin: 08/25/17 12:13 Dose: 20,000 units Ferrous Sulfate (Ferrous Sulfate) 325 mg .ROUTE .STK-MED ONE Stop: 07/29/17 12:01 Ferrous Sulfate (Ferrous Sulfate) Confirm Administered Dose 325 mg .ROUTE .STK- MED ONE Stop: 08/04/17 20:24 Last Admin: 08/04/17 20:28 Dose: Not Given Latanoprost (Xalatan 0.005% Ophth Soln) 0 ml EYEBOTH BEDTIME [facility] Last Admin: 08/17/17 20:53 Dose: 1 drop Latanoprost (Xalatan 0.005% Ophth Soln) 2.5 ml .ROUTE .STK-MED ONE Stop: 08/16/17 10:06 Lisinopril (Prinivil) 20 mg PO DAILY [facility] Last Admin: 08/12/17 13:16 Dose: 10 mg Lisinopril (Prinivil) 20 mg .ROUTE .STK-MED ONE Stop: 07/29/17 12:01 Lisinopril (Prinivil) 10 mg PO DAILY [facility] Last Admin: 09/22/17 08:02 Dose: 10 mg Miscellaneous Information (Remove Patch) 1 ea TRDERM .WEEKLY [facility] Miscellaneous Information (Remove Patch) 1 ea TRDERM Q7D [facility] Last Admin: 08/19/17 21:09 Dose: 1 ea Naproxen (Naprosyn) Confirm Administered Dose 250 mg .ROUTE .STK-MED ONE Stop: 09/02/17 16:58 Last Admin: 09/02/17 19:15 Dose: Not Given Butrans 10mcg Patch 1 each TOP .WEEKLY [facility] Last Admin: 07/29/17 20:45 Dose: 1 each Butrans 10mcg Patch 1 each TOP .WEEKLY [facility] Butrans 10mcg Patch 1 each TOP Q7D [facility] Last Admin: 08/19/17 21:09 Dose: 1 each Nystatin (Nystop) 0 gm TOP BID [facility] Last Admin: 08/27/17 08:17 Dose: Not Given Nystatin (Nystop) Confirm Administered Dose 15 gm .ROUTE .STK-MED ONE Stop: 07/24/17 17:35 Last Admin: 07/24/17 18:43 Dose: Not Given Omeprazole (Omeprazole) 20 mg .ROUTE .STK-MED ONE Stop: 07/29/17 12:01 Oxybutynin Chloride (Oxybutynin Er) 5 mg PO BEDTIME [facility] Last Admin: 09/23/17 21:12 Dose: 5 mg Oxybutynin Chloride (Oxybutynin) Confirm Administered Dose 5 mg .ROUTE .STK-MED ONE Stop: 09/07/17 19:16 Last Admin: 09/07/17 20:07 Dose: 5 mg Oxybutynin Chloride (Oxybutynin) Confirm Administered Dose 5 mg .ROUTE .STK-MED ONE Stop: 09/08/17 20:11 Last Admin: 09/08/17 20:16 Dose: Not Given Oxybutynin Chloride (Oxybutynin Er) Confirm Administered Dose 5 mg .ROUTE .STK- MED ONE Stop: 09/24/17 19:57 Last Admin: 09/24/17 20:23 Dose: 5 mg Polyethylene Glycol (Miralax) 17 gm PO DAILY PRN PRN Reason: Constipation Last Admin: 09/03/17 15:25 Dose: 17 gm Polyethylene Glycol (Miralax) Confirm Administered Dose 17 gm .ROUTE .STK-MED ONE Stop: 09/05/17 12:20 Last Admin: 09/05/17 12:24 Dose: Not Given Senna (Senna) 17.2 mg .ROUTE .STK-MED ONE Stop: 07/29/17 12:01 Senna (Senna) Confirm Administered Dose 8.6 mg .ROUTE .STK-MED ONE Stop: 09/06/17 08:00 Last Admin: 09/06/17 08:05 Dose: Not Given Simvastatin (Zocor) Confirm Administered Dose 40 mg .ROUTE .STK-MED ONE Stop: 08/04/17 20:23 Last Admin: 08/04/17 20:28 Dose: Not Given Tuberculin PPD (Aplisol) 5 unit IDERM ONETIME ONE Stop: 07/23/17 17:04 Last Admin: 07/23/17 20:23 Dose: 5 unit - Exam General: Alert, Oriented, Cooperative HEENT: Pupils Equal, Pupils Reactive, EOMI Neck: Supple Lungs: Clear to Auscultation, Normal Respiratory Effort Cardiovascular: Regular Rate, Regular Rhythm GI/Abdominal Exam: Normal Bowel Sounds Back Exam: Normal Inspection Extremities: Normal Inspection - Problem List & Annotations (1) Hip fracture, left SNOMED Code(s): 668395172 Code(s): S72.002A - FRACTURE OF UNSP PART OF NECK OF LEFT FEMUR, INIT Status: Acute Current Visit: Yes Qualifiers: Encounter type: subsequent encounter (2) Left humeral fracture SNOMED Code(s): 05290612 Code(s): S42.302A - UNSP FRACTURE OF SHAFT OF HUMERUS, LEFT ARM, INIT Status: Acute Current Visit: Yes Qualifiers: Encounter type: subsequent encounter Humerus Location: proximal Fracture type: closed Fracture alignment: displaced Fracture healing: with routine healing (3) Left radial fracture SNOMED Code(s): 54184803 Code(s): S52.92XA - UNSP FRACTURE OF LEFT FOREARM, INIT FOR CLOS FX Status : Acute Current Visit: Yes Qualifiers: Encounter type: subsequent encounter Radius location: distal Fracture type: closed Fracture morphology: unspecified fracture morphology Fracture healing: with routine healing Qualified Code(s): S52.502D - Unspecified fracture of the lower end of left radius, subsequent encounter for closed fracture with routine healing (4) Left rib fracture SNOMED Code(s): 37215076 Code(s): S22.32XA - FRACTURE OF ONE RIB, LEFT SIDE, INIT FOR CLOS FX Status : Acute Current Visit: Yes Qualifiers: Rib fracture type: multiple ribs Fracture type: closed Fracture healing: with routine healing (5) Multiple fractures of left upper extremity and ribs SNOMED Code(s): 89866513 Code(s): S42.302A - UNSP FRACTURE OF SHAFT OF HUMERUS, LEFT ARM, INIT; S22.42XA - MULTIPLE FRACTURES OF RIBS, LEFT SIDE, INIT FOR CLOS FX Status: Acute Current Visit: Yes Qualifiers: Encounter type: subsequent encounter - Problem List Review Problem List Initiated/Reviewed/Updated: Yes - My Orders Last 24 Hours: My Active Orders 10/02/17 09:17 Ready for Discharge [RC] PER UNIT ROUTINE - Plan Plan:: Plan of care for PT/OT therapy. Orthopedics f/u here in the hospital. Will plan for Jose A or Dr. Campos f/u. Medications continued. No changes at this time. 08/18/17 PT setup for Wed with Jose A as Dr. Campos unable to come to [facility]. Patient will be sent via Transport and back for further management plan. 08/26/17 Patient will continue with PT/OT as directed by ortho. New orders are for patient to be full weight bearing from Ortho. We will continue current rehabilitation and pain management. 09/01/17 Continue current PT/OT. Will f/u with Ortho for evaluation and management of continued left hip discomfort. 09/15/17 No changes to management plan of care. Patient progress observed and improvement seen weekly. 09/30/17 Patient has been improving gradually on a daily basis. Will consider discharge planning this week.
--- NOTE | 2017-10-02 09:25 | PCM.DCSUM1 ---
Discharge Summary - Discharge Data Discharge Date: 10/02/17 ([facility]) Discharge Disposition: Home, Self-Care 01 Condition: Good - Discharge Diagnosis/Problem(s) (1) Hip fracture, left SNOMED Code(s): 657734750 ICD Code: S72.002A - FRACTURE OF UNSP PART OF NECK OF LEFT FEMUR, INIT Status: Acute Current Visit: Yes Qualifiers: Encounter type: subsequent encounter (2) Left humeral fracture SNOMED Code(s): 78359769 ICD Code: S42.302A - UNSP FRACTURE OF SHAFT OF HUMERUS, LEFT ARM, INIT Status: Acute Current Visit: Yes Qualifiers: Encounter type: subsequent encounter Humerus Location: proximal Fracture type: closed Fracture alignment: displaced Fracture healing: with routine healing (3) Left radial fracture SNOMED Code(s): 23232968 ICD Code: S52.92XA - UNSP FRACTURE OF LEFT FOREARM, INIT FOR CLOS FX Status : Acute Current Visit: Yes Qualifiers: Encounter type: subsequent encounter Radius location: distal Fracture type: closed Fracture morphology: unspecified fracture morphology Fracture healing: with routine healing Qualified Code(s): S52.502D - Unspecified fracture of the lower end of left radius, subsequent encounter for closed fracture with routine healing (4) Left rib fracture SNOMED Code(s): 70149608 ICD Code: S22.32XA - FRACTURE OF ONE RIB, LEFT SIDE, INIT FOR CLOS FX Status: Acute Current Visit: Yes Qualifiers: Rib fracture type: multiple ribs Fracture type: closed Fracture healing: with routine healing (5) Multiple fractures of left upper extremity and ribs SNOMED Code(s): 47934784 ICD Code: S42.302A - UNSP FRACTURE OF SHAFT OF HUMERUS, LEFT ARM, INIT; S22.42XA - MULTIPLE FRACTURES OF RIBS, LEFT SIDE, INIT FOR CLOS FX Status: Acute Current Visit: Yes Qualifiers: Encounter type: subsequent encounter - Patient Summary/Data Consults: Consultations 07/23/17 17:04 Consult to Instrument Technologist [CONS] Routine Comment: Physician Instructions: Quantity: Consult to Home Health [CONS] Routine Comment: Physician Instructions: Consult to Infection Prevention [CONS] Routine Comment: Physician Instructions: Consult to [employer] [CONS] Routine Comment: Physician Instructions: Consult to Wound Care Services [CONS] Routine Comment: Physician Instructions: OT Evaluation and Treatment [CONS] Routine Please Evaluate and Treat. OT Reason for Consult: ADL's This query below is only for informational purposes and is not editable. Admission Diagnosis/Problem: Weakness PT Evaluation and Treatment [CONS] Routine Please Evaluate and Treat. PT Reason for Consult: Post op Ortho Surgery This query below is only for informational purposes and is not editable. Admission Diagnosis/Problem: Weakness - Patient Instructions Diet: Usual Diet as Tolerated Activity: As Tolerated - Discharge Plan Home Medications: Home Meds Acetaminophen [Tylenol Extra Strength] 500 mg PO QID 10/11/16 [History] Latanoprost [Xalatan 0.005% Ophth Soln] 1 drop EYEBOTH BEDTIME 10/11/16 [History ] Simvastatin [Zocor] 40 mg PO BEDTIME 10/11/16 [History] Ascorbic Acid [Vitamin C] 250 mg PO BIDMEALS 07/23/17 [History] Bisacodyl 10 mg RC DAILY PRN 07/23/17 [History] Buprenorphine [Butrans] 1 each TD WEEKLY 07/23/17 [History] Calcitonin ([place]) [Miacalcin Nasal [place]] 1 spray NS DAILY 07/23/17 [History] Calcium Carbonate/Vitamin D3 [Calcium 600 + Vit D 200] 1 each PO BIDMEALS [History] Docusate Sodium 100 mg PO BID 07/23/17 [History] Epoetin Nicholas [Procrit] 1 ml SUBCUT WEEKLY 07/23/17 [History] Ferrous Sulfate [Feosol] 325 mg PO BID 07/23/17 [History] Hydrocodone/Acetaminophen [Hydrocodon-Acetaminophen 5-325] 2 each PO BID [History] Hydrocodone/Acetaminophen [[place] 5-325 Tablet] 1 each PO Q4H PRN 07/23/17 [ History] Lansoprazole [Prevacid] 15 mg PO DAILY 07/23/17 [History] Lisinopril [Zestril] 20 mg PO DAILY 07/23/17 [History] Magnesium Hydroxide [Milk of Magnesia] 30 ml PO DAILY PRN 07/23/17 [History] Polyethylene Glycol 3350 [Miralax] 17 gm PO DAILY PRN 07/23/17 [History] Sennosides [Senna] 2 tab PO DAILY 07/23/17 [History] amLODIPine [Norvasc] 5 mg PO DAILY 07/23/17 [History] - Discharge Summary/Plan Comment Discharge Summary/Plan Comment: Patient to be discharged with further PT/OT as directed to the [facility] - independent living. Patient agreeable with plan of care and discharge instructions. F/u in clinic as routine and with Orthopedics as scheduled. - General Info Date of Service: 10/02/17 Functional Status: Reports: Pain Controlled, Tolerating Diet, Ambulating - Review of Systems General: Reports: Weakness HEENT: Reports: No Symptoms Pulmonary: Reports: No Symptoms Cardiovascular: Reports: No Symptoms Gastrointestinal: Reports: No Symptoms Genitourinary: Reports: No Symptoms Musculoskeletal: Reports: Joint Pain Skin: Reports: No Symptoms Neurological: Reports: No Symptoms Psychiatric: Reports: No Symptoms - Patient Data Vitals - Most Recent: Last Vital Signs Temp 36.8 C 09/30/17 08:00 Pulse 69 10/01/17 08:00 Resp 12 10/01/17 08:00 BP 179/68 H 10/02/17 08:01 Pulse Ox 99 09/30/17 08:00 Weight - Most Recent: 76.294 kg Med Orders - Current: Current Medications Acetaminophen (Tylenol Extra Strength) 500 mg PO QID [facility] Last Admin: 10/02/17 08:02 Dose: 500 mg Hydrocodone Bitart/Acetaminophen ([place] 325-5 Mg) 1 - 2 tab PO Q4H PRN PRN Reason: PAIN Last Admin: 09/30/17 12:14 Dose: 1 tab Ascorbic Acid (Vitamin C) 250 mg PO BIDMEALS [facility] Last Admin: 10/02/17 08:03 Dose: 250 mg Bisacodyl (Dulcolax) 10 mg RECTAL DAILY PRN PRN Reason: Constipation Buprenorphine (Butrans) 10 mcg TD Q7D [facility] Last Admin: 09/30/17 20:47 Dose: 10 mcg Calcitonin [place] (Miacalcin Nasal [place]) 0 ml [place] DAILY@1999 [facility] Last Admin: 10/01/17 21:05 Dose: 1 sprays(dnu) Docusate Sodium (Colace) 100 mg PO BID [facility] Last Admin: 10/02/17 08:04 Dose: 100 mg Ferrous Sulfate (Ferrous Sulfate) 325 mg PO BID [facility] Last Admin: 10/02/17 08:03 Dose: 325 mg Furosemide (Lasix) 40 mg PO DAILY [facility] Last Admin: 10/02/17 08:03 Dose: 40 mg Latanoprost (Xalatan 0.005% Ophth Soln) 2.5 ml EYEBOTH BEDTIME [facility] Last Admin: 10/01/17 21:04 Dose: 1 drop Lisinopril (Prinivil) 20 mg PO DAILY [facility] Last Admin: 10/02/17 08:01 Dose: 20 mg Magnesium Hydroxide (Milk Of Magnesia) 30 ml PO DAILY PRN PRN Reason: Constipation Last Admin: 09/20/17 17:48 Dose: 30 ml Miscellaneous Information (Remove Patch) 1 ea TRDERM Q7D [facility] Last Admin: 09/30/17 20:48 Dose: 1 ea Naproxen (Naprosyn) 250 mg PO Q12HR [facility] Last Admin: 10/02/17 08:02 Dose: 250 mg Nystatin (Nystop) 1 gm TOP BID PRN PRN Reason: Rash Omeprazole (Omeprazole) 20 mg PO DAILY [facility] Last Admin: 10/02/17 08:01 Dose: 20 mg Oxybutynin Chloride (Oxybutynin Er) 5 mg PO BEDTIME [facility] Last Admin: 10/01/17 21:04 Dose: 5 mg Polyethylene Glycol (Miralax) 17 gm PO BID [facility] Last Admin: 10/02/17 08:01 Dose: 17 gm Senna (Senna) 17.2 mg PO DAILY [facility] Last Admin: 10/02/17 08:03 Dose: 17.2 mg Simvastatin (Zocor) 40 mg PO BEDTIME [facility] Last Admin: 10/01/17 21:04 Dose: 40 mg Discontinued Medications Acetaminophen (Tylenol Extra Strength) 500 mg .ROUTE .STK-MED ONE Stop: 07/29/17 12:01 Acetaminophen (Tylenol Extra Strength) 500 mg .ROUTE .STK-MED ONE Stop: 07/29/17 12:01 Acetaminophen (Tylenol Extra Strength) Confirm Administered Dose 500 mg .ROUTE .STK-MED ONE Stop: 08/04/17 20:23 Last Admin: 08/04/17 20:28 Dose: Not Given Hydrocodone Bitart/Acetaminophen ([place] 325-5 Mg) 3 tab PO BID [facility] Last Admin: 07/24/17 08:51 Dose: 3 tab Hydrocodone Bitart/Acetaminophen ([place] 325-5 Mg) 1 tab PO Q4H PRN PRN Reason: Pain Amlodipine Besylate (Norvasc) 5 mg PO DAILY [facility] Last Admin: 08/27/17 08:19 Dose: Not Given Amlodipine Besylate (Norvasc) 5 mg .ROUTE .STK-MED ONE Stop: 07/29/17 12:01 Ascorbic Acid (Vitamin C) 500 mg .ROUTE .STK-MED ONE Stop: 07/29/17 12:01 Calcitonin [place] (Miacalcin Nasal [place]) 0 ml MADELEINE DAILY [facility] Last Admin: 07/28/17 08:24 Dose: Not Given Calcitonin [place] (Miacalcin Nasal [place]) 0 ml [place]ADELEINE DAILY [facility] Last Admin: 07/29/17 20:30 Dose: 1 spray Calcium Carbonate (Calcium Carbonate/Vitamin D 1500 Mg-200 Unit) 1 tab PO BIDMEALS [facility] Last Admin: 07/31/17 17:00 Dose: Not Given Calcium Carbonate (Caltrate 600+D 1500 Mg-400 Units) 1 tab PO BIDMEALS [facility] Last Admin: 09/05/17 10:41 Dose: Not Given Docusate Sodium (Colace) 100 mg .ROUTE .STK-MED ONE Stop: 07/29/17 12:01 Docusate Sodium (Colace) Confirm Administered Dose 100 mg .ROUTE .STK-MED ONE Stop: 08/04/17 20:25 Last Admin: 08/04/17 20:28 Dose: Not Given Enoxaparin Sodium (Lovenox) 80 mg SUBCUT DAILY [facility] Enoxaparin Sodium (Lovenox) 40 mg SUBCUT DAILY [facility] Last Admin: 08/26/17 07:32 Dose: 40 mg Enoxaparin Sodium (Lovenox) 40 mg .ROUTE .STK-MED ONE Stop: 07/29/17 12:01 Enoxaparin Sodium (Lovenox) 80 mg 1 mg/kg (80 mg) SUBCUT BID [facility] Last Admin: 09/18/17 08:08 Dose: 80 mg Enoxaparin Sodium (Lovenox) Confirm Administered Dose 80 mg .ROUTE .STK-MED ONE Stop: 09/16/17 14:37 Last Admin: 09/16/17 15:10 Dose: Not Given Epoetin Nicholas (Procrit) 20,000 units SUBCUT .WEEKLY [facility] Last Admin: 07/26/17 08:40 Dose: 20,000 units Epoetin Nicholas (Procrit) 20,000 units SUBCUT Mo [facility] Last Admin: 08/25/17 12:13 Dose: 20,000 units Ferrous Sulfate (Ferrous Sulfate) 325 mg .ROUTE .STK-MED ONE Stop: 07/29/17 12:01 Ferrous Sulfate (Ferrous Sulfate) Confirm Administered Dose 325 mg .ROUTE .STK- MED ONE Stop: 08/04/17 20:24 Last Admin: 08/04/17 20:28 Dose: Not Given Latanoprost (Xalatan 0.005% Ophth Soln) 0 ml EYEBOTH BEDTIME [facility] Last Admin: 08/17/17 20:53 Dose: 1 drop Latanoprost (Xalatan 0.005% Ophth Soln) 2.5 ml .ROUTE .STK-MED ONE Stop: 08/16/17 10:06 Lisinopril (Prinivil) 20 mg PO DAILY [facility] Last Admin: 08/12/17 13:16 Dose: 10 mg Lisinopril (Prinivil) 20 mg .ROUTE .STK-MED ONE Stop: 07/29/17 12:01 Lisinopril (Prinivil) 10 mg PO DAILY [facility] Last Admin: 09/22/17 08:02 Dose: 10 mg Miscellaneous Information (Remove Patch) 1 ea TRDERM .WEEKLY [facility] Miscellaneous Information (Remove Patch) 1 ea TRDERM Q7D [facility] Last Admin: 08/19/17 21:09 Dose: 1 ea Naproxen (Naprosyn) Confirm Administered Dose 250 mg .ROUTE .STK-MED ONE Stop: 09/02/17 16:58 Last Admin: 09/02/17 19:15 Dose: Not Given Butrans 10mcg Patch 1 each TOP .WEEKLY [facility] Last Admin: 07/29/17 20:45 Dose: 1 each Butrans 10mcg Patch 1 each TOP .WEEKLY [facility] Butrans 10mcg Patch 1 each TOP Q7D [facility] Last Admin: 08/19/17 21:09 Dose: 1 each Nystatin (Nystop) 0 gm TOP BID [facility] Last Admin: 08/27/17 08:17 Dose: Not Given Nystatin (Nystop) Confirm Administered Dose 15 gm .ROUTE .STK-MED ONE Stop: 07/24/17 17:35 Last Admin: 07/24/17 18:43 Dose: Not Given Omeprazole (Omeprazole) 20 mg .ROUTE .STK-MED ONE Stop: 07/29/17 12:01 Oxybutynin Chloride (Oxybutynin Er) 5 mg PO BEDTIME [facility] Last Admin: 09/23/17 21:12 Dose: 5 mg Oxybutynin Chloride (Oxybutynin) Confirm Administered Dose 5 mg .ROUTE .STK-MED ONE Stop: 09/07/17 19:16 Last Admin: 09/07/17 20:07 Dose: 5 mg Oxybutynin Chloride (Oxybutynin) Confirm Administered Dose 5 mg .ROUTE .STK-MED ONE Stop: 09/08/17 20:11 Last Admin: 09/08/17 20:16 Dose: Not Given Oxybutynin Chloride (Oxybutynin Er) Confirm Administered Dose 5 mg .ROUTE .STK- MED ONE Stop: 09/24/17 19:57 Last Admin: 09/24/17 20:23 Dose: 5 mg Polyethylene Glycol (Miralax) 17 gm PO DAILY PRN PRN Reason: Constipation Last Admin: 09/03/17 15:25 Dose: 17 gm Polyethylene Glycol (Miralax) Confirm Administered Dose 17 gm .ROUTE .STK-MED ONE Stop: 09/05/17 12:20 Last Admin: 09/05/17 12:24 Dose: Not Given Senna (Senna) 17.2 mg .ROUTE .STK-MED ONE Stop: 07/29/17 12:01 Senna (Senna) Confirm Administered Dose 8.6 mg .ROUTE .STK-MED ONE Stop: 09/06/17 08:00 Last Admin: 09/06/17 08:05 Dose: Not Given Simvastatin (Zocor) Confirm Administered Dose 40 mg .ROUTE .STK-MED ONE Stop: 08/04/17 20:23 Last Admin: 08/04/17 20:28 Dose: Not Given Tuberculin PPD (Aplisol) 5 unit IDERM ONETIME ONE Stop: 07/23/17 17:04 Last Admin: 07/23/17 20:23 Dose: 5 unit - Exam General: Reports: Alert, Oriented, Cooperative HEENT: Reports: Pupils Equal, Pupils Reactive Neck: Reports: Supple Lungs: Reports: Clear to Auscultation, Normal Respiratory Effort Cardiovascular: Reports: Regular Rate, Regular Rhythm GI/Abdominal Exam: Normal Bowel Sounds Back Exam: Reports: Normal Inspection Extremities: Normal Inspection *Q Meaningful Use (DIS) - VTE *Q VTE Criteria *Q: - Stroke *Q Stroke Criteria *Q: - AMI *Q AMI Criteria *Q:
== END 2017-10-02 14:15 | disposition home or self-care (01) | DRG 561 ==
LOC: UNDOADMIN 15:59 → LB.MS 15:59
PROVIDERS: ADMIT Family Medicine; ATTEND Family Medicine
PROC: 3E0U33Z Introduction of Anti-inflammatory into Joints, Percutaneous Approach (ICD-10-PCS; principal; 2017-08-08)
PROC: 3E0U3BZ Introduction of Anesthetic Agent into Joints, Percutaneous Approach (ICD-10-PCS; 2017-08-08)
DX: S72.145D Nondisplaced intertrochanteric fracture of left femur, subsequent encounter for closed fracture with routine healing (principal); S52.92XD Unspecified fracture of left forearm, subsequent encounter for closed fracture with routine healing; S52.502D Unspecified fracture of the lower end of left radius, subsequent encounter for closed fracture with routine healing; S22.42XD Multiple fractures of ribs, left side, subsequent encounter for fracture with routine healing; M25.552 Pain in left hip; S42.202D Unspecified fracture of upper end of left humerus, subsequent encounter for fracture with routine healing; R79.1 Abnormal coagulation profile; M79.89 Other specified soft tissue disorders; I10 Essential (primary) hypertension; Z66 Do not resuscitate; Z11.1 Encounter for screening for respiratory tuberculosis; M19.90 Unspecified osteoarthritis, unspecified site; M54.9 Dorsalgia, unspecified; G89.29 Other chronic pain; H40.9 Unspecified glaucoma; H54.7 Unspecified visual loss; H91.90 Unspecified hearing loss, unspecified ear; Z96.652 Presence of left artificial knee joint; Z96.612 Presence of left artificial shoulder joint
CPT/HCPCS: 36415; 71046; 73030-LT; 73110-LT; 73502-LT; 80048; 80053; 82310; 83970; 85025; 85379; 86580; 93971-LT; 97110-GO; 97110-GP; 97116-GP; 97161-GP; 97166-GO; 97530-GO; 97530-GP; 97535-GO; A9270-GY; J0885; J1650

== ENCOUNTER 2018-05-01 07:55 | Inpatient (IN) | payer MEDICARE, BC ==
[2018-05-01] MEDS ORDERED: Aspirin 81 MG Tab.Chew PO ONE (08:35)
[2018-05-01] MEDS ORDERED: Sodium Chloride 0.9% 10 ML Syringe FLUSH PRN (08:36)
[2018-05-01] MEDS ORDERED: Labetalol 100 MG/20 ML MDV IVPUSH ONE ×2 (08:37→08:45)
[2018-05-01] MEDS ORDERED: Acetaminophen 325 MG Tab PO PRN (08:46)
[2018-05-01] MEDS ORDERED: atorvaSTATin 10 MG Tab PO ONE (08:47)
[2018-05-01] MEDS ORDERED: Metoprolol Tartrate 5 MG/5 ML SDV ONE (08:50)
--- NOTE | 2018-05-01 08:54 | EDM.PDOC ---
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 Patient apparently went to bed without complaints per staff and had difficulties this am and was brought to the ER. She has not been able to follow commands and has not been able to respond properly with jumbled words and replies at times. Last time patient was baseline was last night prior to bedtime. Patient appears weak and unable to follow commands. Patient has garbles word use and word dissociation with episodes of proper phrases. Her BP is elevated. Onset: Unknown/Unsure - Related Data Allergies Allergy/AdvReac Type Severity Reaction Status Date / Time No Known Allergies Allergy Verified 05/01/18 08:39 Home Meds: Home Meds Acetaminophen [Tylenol Extra Strength] 500 mg PO QID 10/11/16 [History] Latanoprost [Xalatan 0.005% Ophth Soln] 1 drop EYEBOTH BEDTIME 10/11/16 [History ] Simvastatin [Zocor] 40 mg PO BEDTIME 10/11/16 [History] Ascorbic Acid [Vitamin C] 250 mg PO BIDMEALS 07/23/17 [History] Calcitonin ([place]) [Miacalcin Nasal [place]] 1 spray NS DAILY 07/23/17 [History] Calcium Carbonate/Vitamin D3 [Calcium 600 + Vit D 200] 1 each PO BIDMEALS [History] Docusate Sodium 100 mg PO BID 07/23/17 [History] Epoetin [place] [Procrit] 1 ml SUBCUT WEEKLY 07/23/17 [History] Ferrous Sulfate [Feosol] 325 mg PO BID 07/23/17 [History] Hydrocodone/Acetaminophen [[place] 5-325] 1 each PO Q4H PRN 07/23/17 [History] Lansoprazole [Prevacid] 15 mg PO DAILY 07/23/17 [History] Lisinopril [Zestril] 20 mg PO DAILY 07/23/17 [History] Polyethylene Glycol 3350 [Miralax] 17 gm PO DAILY PRN 07/23/17 [History] Sennosides [Senna] 2 tab PO DAILY 07/23/17 [History] amLODIPine [Norvasc] 5 mg PO DAILY 07/23/17 [History] Furosemide [Lasix] 40 mg PO DAILY tablet 10/02/17 [Rx] Hydrocodone/Acetaminophen [Hydrocodon-Acetaminophen 5-325] 2 each PO BID #60 tablet 10/02/17 [Rx] Lisinopril [Prinivil] 20 mg PO DAILY 30 Days tablet 10/02/17 [Rx] Oxybutynin [Oxybutynin ER] 5 mg PO BEDTIME tab.er 10/02/17 [Rx] Past Medical History HEENT History: Reports: Glaucoma, Hard of Hearing, Impaired Vision Cardiovascular History: Reports: Hypertension Respiratory History: Reports: None Gastrointestinal History: Reports: None Genitourinary History: Reports: Urinary Incontinence ASSURANCE ASSISTANT History: Reports: Other ASSURANCE ASSISTANT History: parity: 3, gravity: 3. vaginal deliveries Musculoskeletal History: Reports: Back Pain, Chronic, Osteoarthritis Neurological History: Reports: None Endocrine/Metabolic History: Reports: None Hematologic History: Reports: Anticoagulation Therapy, Blood Transfusion(s) Oncologic (Cancer) History: Reports: None - Infectious Disease History Infectious Disease History: Reports: Chicken Pox - Past Surgical History Musculoskeletal Surgical History: Reports: Shoulder Surgery, Other (See Below) Other Musculoskeletal Surgeries/Procedures:: left knee TKR. right knee pain. Left shoulder - reverse TSA. Left wrist fracture. Social & Family History - Family History Family Medical History: Noncontributory - Caffeine Use Caffeine Use: Reports: Coffee ED ROS GENERAL - Review of Systems Review Of Systems: ROS reveals no pertinent complaints other than HPI. ED EXAM, NEURO - Physical Exam Exam: See Below Exam Limited By: Uncooperative General Appearance: Alert, Anxious Eye Exam: Bilateral Eye: PERRL Ears: Normal External Exam Nose: Normal Inspection Throat/Mouth: Normal Inspection Head Exam: Atraumatic, Normocephalic Neck: Normal Inspection Respiratory/Chest: No Respiratory Distress, Lungs Clear, Normal Breath Sounds Cardiovascular: Normal Peripheral Pulses, Regular Rate, Rhythm Neurological: Other (unable to follow any commands but appears to respond) Course - Vital Signs Last Recorded V/S: Last Vital Signs Temp 36.9 C 05/01/18 08:29 Pulse 69 05/01/18 09:23 Resp 16 05/01/18 09:23 BP 243/77 H 05/01/18 12:36 Pulse Ox 100 05/01/18 09:23 - Orders/Labs/Meds Orders: Active Orders 24 hr Category Date Time Status Communication Order [RC] ASDIRECTED Care 05/01/18 08:46 Active Head of Bed Elevation [RC] ASDIRECTED Care 05/01/18 08:46 Active Notify Provider Status Change [RC] ASDIRECTED Care 05/01/18 08:46 Active Acetaminophen [Tylenol] Med 05/01/18 08:46 Active 650 mg PO Q4H PRN Lactated Ringers [Ringers, Lactated] 1,000 ml Med 05/01/18 09:00 Active IV ASDIRECTED Sodium Chloride 0.9% [Saline Flush] Med 05/01/18 08:36 Active 10 ml FLUSH ASDIRECTED PRN Peripheral IV Insertion Adult [OM.PC] Routine Oth 05/01/18 08:36 Ordered Medication Orders Acetaminophen (Tylenol) 650 mg PO Q4H PRN PRN Reason: Fever Lactated Ringer's (Ringers, Lactated) 1,000 mls @ 125 mls/hr IV ASDIRECTED JESUS Sodium Nitroprusside 50 mg/ (Dextrose/Water) 250 mls @ 6.3 mls/hr IV TITRATE JESUS; Protocol Last Titration: 05/01/18 13:07 Dose: 1.7 mcg/kg/min, 35.7 mls/hr Titration: 05/01/18 12:57 Dose: 1.2 mcg/kg/min, 25.2 mls/hr Titration: 05/01/18 12:46 Dose: 0.8 mcg/kg/min, 16.8 mls/hr Admin: 05/01/18 12:36 Dose: 0.3 mcg/kg/min, 6.3 mls/hr Sodium Chloride (Saline Flush) 10 ml FLUSH ASDIRECTED PRN PRN Reason: Keep Vein Open Labs: Laboratory Tests 05/01/18 05/01/18 05/01/18 Range/Units 08:05 08:05 08:05 WBC 6.0 D (4.0-11.0) K/uL RBC 4.38 (3.80-5.80) M/uL Hgb 13.4 (11.5-16.5) g/dL Hct 39.8 (37.0-47.0) % MCV 91 (76-96) fL MCH 30.6 (27.0-32.0) pg MCHC 33.7 (31.0-35.0) g/dL RDW 12.8 (11.0-16.0) % Plt Count 247 (150-500) K/uL MPV 9.3 (6.0-10.0) fL Neut % (Auto) 67.3 (45.0-70.0) % Lymph % (Auto) 20.9 (20.0-40.0) % [place] % (Auto) 8.3 (3.0-10.0) % Eos % (Auto) 2.8 (1.0-5.0) % Baso % (Auto) 0.7 H (0.0-0.5) % Neut # (Auto) 4.05 (2.00-7.50) K/uL Lymph # (Auto) 1.26 L (1.50-4.00) K/uL [place] # (Auto) 0.50 (0.20-0.80) K/uL Eos # (Auto) 0.17 (0.04-0.40) K/uL Baso # (Auto) 0.04 (0.02-0.10) K/uL PT 9.1 (9.0-11.5) sec INR 0.9 L (1.0-3.5) Sodium 145 (136-145) mmol/L Potassium 4.0 (3.5-5.1) mmol/L Chloride 106 (98-107) mmol/L Carbon Dioxide 30.9 (21.0-32.0) mmol/L Anion Gap 12.1 (5.0-15.0) mmol/L BUN 16 (8-26) mg/dL Creatinine 0.76 (0.55-1.02) mg/dL Est Cr Clr Drug Dosing TNP Estimated GFR (MDRD) > 60 (>60) MLS/MIN BUN/Creatinine Ratio 21.1 (6-25) Glucose 104 H (74-100) mg/dL Calcium 10.6 H (8.5-10.1) mg/dL Total Bilirubin 0.6 D (0.0-1.0) mg/dL AST 12 L (15-37) U/L ALT 19 (12-78) U/L Alkaline Phosphatase 62 (46-116) U/L Total Protein 7.0 (6.4-8.2) g/dL Albumin 3.7 (3.4-5.0) g/dL Globulin 3.3 (2.2-4.2) g/dL Albumin/Globulin Ratio 1.1 (0.8-2.0) TSH, Ultra Sensitive 2.136 D (0.358-3.740) uIU/mL Meds: Medications Generic Name Dose Route Start Last Admin Trade Name [place] PRN Reason Stop Dose Admin Acetaminophen 650 mg 05/01/18 08:46 Tylenol PO Q4H PRN Fever Lactated Ringer's 1,000 mls @ 125 mls/hr 05/01/18 09:00 Ringers, Lactated IV ASDIRECTED JESUS Sodium Nitroprusside 50 mg/ 250 mls @ 6.3 mls/hr 05/01/18 11:30 05/01/18 13: 07 Dextrose/Water IV 1.7 mcg/kg/min TITRATE JESUS 35.7 mls/hr Titration Protocol 0.3 MCG/KG/MIN Sodium Chloride 10 ml 05/01/18 08:36 Saline Flush FLUSH ASDIRECTED PRN Keep Vein Open Discontinued Medications Generic Name Dose Route Start Last Admin Trade Name F[place] PRN Reason Stop Dose Admin Aspirin 324 mg 05/01/18 08:35 Aspirin PO 05/01/18 08:36 ONETIME ONE Atorvastatin Calcium 80 mg 05/01/18 08:47 Lipitor PO 05/01/18 08:48 ONETIME ONE Labetalol HCl 10 mg 05/01/18 08:37 Normodyne IVPUSH 05/01/18 08:38 ONETIME ONE Protocol Labetalol HCl 5 mg 05/01/18 08:45 Normodyne IVPUSH 05/01/18 08:46 ONETIME ONE Protocol Lorazepam Confirm 05/01/18 12:07 Ativan Administered 05/01/18 12:08 Dose 2 mg .ROUTE .STK-MED ONE Lorazepam 1 mg 05/01/18 12:12 05/01/18 12:21 Ativan IVPUSH 05/01/18 12:13 1 mg ONETIME ONE Administration Metoprolol Tartrate Confirm 05/01/18 08:50 Lopressor Administered 05/01/18 08:51 Dose 5 mg .ROUTE .STK-MED ONE Departure - Departure Time of Disposition: 12:00 Disposition: Admitted As Inpatient 64 Condition: Undetermined Clinical Impression: CVA (cerebral vascular accident) Qualifiers: CVA mechanism: unspecified Qualified Code(s): I63.9 - Cerebral infarction, unspecified - Discharge Information - Problem List & Annotations (1) CVA (cerebral vascular accident) SNOMED Code(s): 056994350 Code(s): I63.9 - CEREBRAL INFARCTION, UNSPECIFIED Status: Acute Current Visit: Yes Qualifiers: CVA mechanism: unspecified Qualified Code(s): I63.9 - Cerebral infarction, unspecified (2) Broca's aphasia SNOMED Code(s): 697491823 Code(s): R47.01 - APHASIA Status: Acute Current Visit: Yes - Problem List Review Problem List Initiated/Reviewed/Updated: Yes - My Orders Last 24 Hours: My Active Orders 05/01/18 08:36 Sodium Chloride 0.9% [Saline Flush] 10 ml FLUSH ASDIRECTED PRN Peripheral IV Insertion Adult [OM.PC] Routine 05/01/18 08:46 Communication Order [RC] ASDIRECTED Head of Bed Elevation [RC] ASDIRECTED Notify Provider Status Change [RC] ASDIRECTED Acetaminophen [Tylenol] 650 mg PO Q4H PRN 05/01/18 09:00 Lactated Ringers [Ringers, Lactated] 1,000 ml IV ASDIRECTED - Assessment/Plan Last 24 Hours: My Active Orders 05/01/18 08:36 Sodium Chloride 0.9% [Saline Flush] 10 ml FLUSH ASDIRECTED PRN Peripheral IV Insertion Adult [OM.PC] Routine 05/01/18 08:46 Communication Order [RC] ASDIRECTED Head of Bed Elevation [RC] ASDIRECTED Notify Provider Status Change [RC] ASDIRECTED Acetaminophen [Tylenol] 650 mg PO Q4H PRN 05/01/18 09:00 Lactated Ringers [Ringers, Lactated] 1,000 ml IV ASDIRECTED Plan: Patient admitted to CCU for further management and monitoring. Patient had emergent HTN during admission and was placed on Nitroprusside drip. Patient stable in CCU. She has no improvement in following commands and appears to have some Aphasia and Broca's Aphasia.
--- NOTE | 2018-05-01 11:02 | CT ---
DATE OF SERVICE: 05/01/18 CLINICAL DATA: POSSIBLE STROKE UNENHANCED BRAIN CT: Multislice acquisition through the brain without IV contrast was performed. Comparison is made to a prior exam dated 10/28/16. There is diffuse cerebral atrophy. There are periventricular lucencies bilaterally consistent with small vessel ischemic change. No masses or mass effect. No intracranial hemorrhage. No evidence of acute or subacute infarct. No changes from the prior study. IMPRESSION: No acute intracranial abnormalities. [id number] [facility]
[2018-05-01] MEDS ORDERED: Nitroprusside 50 MG in Dextrose 5% in Water 248 ML IV SCH ×2 (11:30)
[2018-05-01] MEDS ORDERED: LORazepam 2 MG/ML SDV ONE (12:07)
[2018-05-01] MEDS: LORazepam 2 MG/ML SDV IVPUSH ONE ×2 (12:21→17:10)
[2018-05-01] MEDS: Lactated Ringers 1,000 ML IV SCH (12:30)
[2018-05-01] MEDS ORDERED: Ketorolac 30 MG/ML SDV ONE (15:39)
[2018-05-01] MEDS ORDERED: Metoprolol Tartrate 5 MG/5 ML SDV IVPUSH ONE (16:30)
[2018-05-01] MEDS ORDERED: Ketorolac 30 MG/ML SDV IVPUSH ONE (16:30)
[2018-05-01] MEDS ORDERED: Ondansetron 4 MG/2 ML SDV IVPUSH ONE (16:30)
[2018-05-01] MEDS ORDERED: Lisinopril 10 MG Tab ONE (18:03)
[2018-05-01] MEDS ORDERED: LORazepam 2 MG/ML SDV IVPUSH PRN ×2 (18:11→21:00)
[2018-05-01] MEDS ORDERED: Morphine 2 MG/ML Syringe IVPUSH PRN (18:11)
[2018-05-01] MEDS ORDERED: Dexamethasone 4 MG/ML SDV IVPUSH ONE (19:08)
[2018-05-01] MEDS ORDERED: Dexamethasone 4 MG/ML SDV ONE (19:14)
[2018-05-01] MEDS: Lisinopril 20 MG Tab PO SCH (19:15)
[2018-05-01] MEDS: Sennosides 8.6 MG Tab PO SCH (19:39)
[2018-05-01] MEDS: Acetaminophen 500 MG Tab PO SCH (20:21)
[2018-05-01] MEDS: Simvastatin 40 MG Tab PO SCH (20:21)
[2018-05-01] MEDS: Acetaminophen/HYDROcodone 325-5 MG Tab PO PRN ×2 (20:26→23:49)
[2018-05-01] MEDS: Morphine 2 MG/ML Syringe IVPUSH PRN (21:13)
[2018-05-01] MEDS: Latanoprost 0.005% Ophth Soln 2.5 ML Bottle EYEBOTH SCH (21:26)
[2018-05-02] MEDS: Morphine 2 MG/ML Syringe IVPUSH PRN ×3 (01:30→11:45)
--- NOTE | 2018-05-02 10:06 | PCM.PN ---
- General Info Date of Service: 05/02/18 Subjective Update: Pt is very alert today. She is off her Sodium nipride drip, her blood pressure is around systolic 140-150mmhg. Pt is very alert today. She does respond verbally . not in pain. Moving all 4 extremities. She is on her routine medications. Has only has 250cc or urine over the past 12 hrs now. No other complaints. Functional Status: Reports: Pain Controlled, Urinating. Denies: Tolerating Diet , Ambulating - Review of Systems General: Reports: Weakness. Denies: Fever, Fatigue HEENT: Denies: Sinus Congestion, Sore Throat, Visual Changes Pulmonary: Denies: Shortness of Breath, Sputum, Hemoptysis Cardiovascular: Denies: Chest Pain, Lightheadedness Gastrointestinal: Denies: Nausea, Vomiting Genitourinary: Denies: Dysuria, Frequency Musculoskeletal: Denies: Joint Pain, Joint Swelling Skin: Denies: Bruising, Pruritis, Rash Neurological: Reports: Weakness. Denies: Confusion, Dizziness, Headache, Numbness, Tingling, Trouble Speaking - Patient Data Vitals - Most Recent: Last Vital Signs Temp 98.5 F 05/01/18 08:29 Pulse 91 05/01/18 17:30 Resp 19 05/01/18 15:30 BP 141/53 H 05/01/18 19:15 Pulse Ox 95 05/01/18 16:30 Weight - Most Recent: 77.973 kg I&O - Last 24 Hours: Intake & Output 05/01/18 05/02/18 05/02/18 22:59 06:59 14:59 Intake Total 680 Output Total 325 Balance 355 Med Orders - Current: Current Medications Acetaminophen (Tylenol) 650 mg PO Q4H PRN PRN Reason: Fever Acetaminophen (Tylenol Extra Strength) 500 mg PO QID JESUS Last Admin: 05/01/18 20:21 Dose: 500 mg Hydrocodone Bitart/Acetaminophen ([place] 325-5 Mg) 1 tab PO Q4H PRN PRN Reason: Pain Last Admin: 05/01/18 23:49 Dose: 1 tab Lactated Ringer's (Ringers, Lactated) 1,000 mls @ 75 mls/hr IV ASDIRECTED [facility] Last Infusion: 05/01/18 17:48 Dose: 50 mls/hr Sodium Nitroprusside 50 mg/ (Dextrose/Water) 250 mls @ 6.3 mls/hr IV TITRATE [facility]; Protocol Last Titration: 05/01/18 18:50 Dose: 0.6 mcg/kg/min, 12.6 mls/hr Latanoprost (Xalatan 0.005% Ophth Soln) 0 ml EYEBOTH BEDTIME [facility] Last Admin: 05/01/18 21:26 Dose: Not Given Lisinopril (Prinivil) 20 mg PO DAILY [facility] Last Admin: 05/01/18 19:15 Dose: 20 mg Lorazepam (Ativan) 1 mg IVPUSH Q4H PRN PRN Reason: Agitation Morphine Sulfate (Morphine) 2 mg IVPUSH Q4H PRN PRN Reason: Pain Last Admin: 05/02/18 04:56 Dose: 2 mg Senna (Senna) 17.2 mg PO DAILY [facility] Last Admin: 05/01/18 19:39 Dose: Not Given Simvastatin (Zocor) 40 mg PO BEDTIME [facility] Last Admin: 05/01/18 20:21 Dose: 40 mg Sodium Chloride (Saline Flush) 10 ml FLUSH ASDIRECTED PRN PRN Reason: Keep Vein Open Discontinued Medications Aspirin (Aspirin) 324 mg PO ONETIME ONE Stop: 05/01/18 08:36 Last Admin: 05/01/18 16:19 Dose: Not Given Atorvastatin Calcium (Lipitor) 80 mg PO ONETIME ONE Stop: 05/01/18 08:48 Last Admin: 05/01/18 16:25 Dose: Not Given Dexamethasone (Dexamethasone) 4 mg IVPUSH ONETIME ONE Stop: 05/01/18 19:09 Last Admin: 05/01/18 19:41 Dose: 4 mg Dexamethasone (Dexamethasone) Confirm Administered Dose 4 mg .ROUTE .STK-MED ONE Stop: 05/01/18 19:15 Last Admin: 05/01/18 19:36 Dose: Not Given Ketorolac Tromethamine (Toradol) Confirm Administered Dose 30 mg .ROUTE .STK- MED ONE Stop: 05/01/18 15:40 Last Admin: 05/01/18 16:26 Dose: Not Given Ketorolac Tromethamine (Toradol) 15 mg IVPUSH ONETIME ONE Stop: 05/01/18 16:31 Last Admin: 05/01/18 16:00 Dose: 15 mg Labetalol HCl (Normodyne) 10 mg IVPUSH ONETIME ONE; Protocol Stop: 05/01/18 08:38 Last Admin: 05/01/18 10:30 Dose: 10 mg Labetalol HCl (Normodyne) 5 mg IVPUSH ONETIME ONE; Protocol Stop: 05/01/18 08:46 Last Admin: 05/01/18 16:24 Dose: Not Given Lisinopril (Prinivil) Confirm Administered Dose 20 mg .ROUTE .STK-MED ONE Stop: 05/01/18 18:04 Last Admin: 05/01/18 18:34 Dose: Not Given Lorazepam (Ativan) Confirm Administered Dose 2 mg .ROUTE .STK-MED ONE Stop: 05/01/18 12:08 Last Admin: 05/01/18 16:26 Dose: Not Given Lorazepam (Ativan) 1 mg IVPUSH ONETIME ONE Stop: 05/01/18 12:13 Last Admin: 05/01/18 17:10 Dose: 1 mg Lorazepam (Ativan) 1 mg IVPUSH Q6H PRN PRN Reason: Agitation Last Admin: 05/01/18 21:09 Dose: 1 mg Metoprolol Tartrate (Lopressor) Confirm Administered Dose 5 mg .ROUTE .STK-MED ONE Stop: 05/01/18 08:51 Last Admin: 05/01/18 16:26 Dose: Not Given Metoprolol Tartrate (Lopressor) 5 mg IVPUSH ONETIME ONE Stop: 05/01/18 16:31 Last Admin: 05/01/18 08:50 Dose: 5 mg Morphine Sulfate (Morphine) 2 mg IVPUSH Q6H PRN PRN Reason: Pain Last Admin: 05/01/18 18:36 Dose: 2 mg Ondansetron HCl (Zofran) 8 mg IVPUSH ONETIME ONE Stop: 05/01/18 16:31 Last Admin: 05/01/18 10:35 Dose: 8 mg - Exam General: Alert, Oriented, Cooperative, No Acute Distress HEENT: Pupils Equal, Pupils Reactive, Other (Has NG tube in the left nostril) Neck: Supple Lungs: Clear to Auscultation, Normal Respiratory Effort Cardiovascular: Regular Rate, Regular Rhythm GI/Abdominal Exam: Normal Bowel Sounds, Soft, Non-Tender, No Organomegaly, No Distention, No Abnormal Bruit, No Mass, Pelvis Stable Extremities: Normal Inspection, Normal Range of Motion, Non-Tender, No Pedal Edema, Normal Capillary Refill Peripheral Pulses: 2+: Carotid (L), Carotid (R) Skin: Warm, Intact Neurological: Normal Speech, Sensation Intact, Cranial Nerves Intact, Other ( pateint has 3-4 grade strength over the rigth upper and lower extremity.) Psy/Mental Status: Alert, Normal Affect, Normal Mood - Problem List & Annotations (1) CVA (cerebral vascular accident) SNOMED Code(s): 458689488 Code(s): I63.9 - CEREBRAL INFARCTION, UNSPECIFIED Status: Acute Current Visit: Yes Qualifiers: CVA mechanism: unspecified Qualified Code(s): I63.9 - Cerebral infarction, unspecified - Problem List Review Problem List Initiated/Reviewed/Updated: Yes - My Orders Last 24 Hours: My Active Orders 05/01/18 11:30 Cardiac Monitoring [RC] .As Directed Nitroprusside [Nitropress] 50 mg Dextrose 5% in Water 248 ml IV TITRATE 05/01/18 17:52 Acetaminophen/HYDROcodone [[place] 325-5 MG] 1 tab PO Q4H PRN 05/01/18 17:56 Chest 1V Frontal [CR] Routine 05/01/18 18:00 Lisinopril [Prinivil] 20 mg PO DAILY Sennosides [Senna] 17.2 mg PO DAILY 05/01/18 20:00 Acetaminophen [Tylenol Extra Strength] 500 mg PO QID Latanoprost [Xalatan 0.005% Ophth Soln] 0 ml EYEBOTH BEDTIME Simvastatin [Zocor] 40 mg PO BEDTIME 05/01/18 20:53 Morphine 2 mg IVPUSH Q4H PRN 05/01/18 21:00 LORazepam [Ativan] 1 mg IVPUSH Q4H PRN 05/02/18 09:44 Transfer Patient (Change bed) [ADT] Routine - Assessment Assessment:: Right hemiparesis with acute ischemic CVA - Plan Plan:: Pt's Sodium Nipride drip was discontinue last night. she has been maintaining her systolic pressure around 140-150mmhg. Now on her routine home meds through NG tube.Pt is doing way better today. no agitation or irritability. She is alert and oriented to place and person. She is appropriately responding to verbal commands. Able to move all four extremities. left better than right. He right side strength is 3-4/5. Pt did ask for water, I did a trial of 10cc of water, she does appear to have good swallow reflex, no choking.Will have speech therapy evaluation of Friday. Pt does have NG tube presently per family request and is getting her routine medication through it. I am hesitant to start her oral diet without speech eval. so will continue NG feed medications. Also started protonix 40mg per NG to prevent gastritis. Her urine output has decreased will increase her LR to 75cc/hr so she gets 1800cc/day. Will keep her on sips of fluid less than 10cc at at time, continue NG medications. Will get her CBC and BMp in Am.
[2018-05-02] MEDS: Lisinopril 20 MG Tab PO SCH (13:22)
[2018-05-02] MEDS: Sennosides 8.6 MG Tab PO SCH (13:23)
[2018-05-02] MEDS: Acetaminophen 500 MG Tab PO SCH ×4 (13:24→19:47)
[2018-05-02] MEDS: Pantoprazole 40 MG Tab.CR PO SCH (13:25)
[2018-05-02] MEDS: Lactated Ringers 1,000 ML IV SCH ×2 (13:33→23:50)
[2018-05-02] MEDS: Acetaminophen/HYDROcodone 325-5 MG Tab PO PRN ×2 (15:15→19:47)
[2018-05-02] MEDS: Simvastatin 40 MG Tab PO SCH (19:47)
[2018-05-02] MEDS: Heparin Sodium 5,000 UNITS/0.5 ML Syringe SUBCUT SCH (19:53)
[2018-05-02] MEDS: Latanoprost 0.005% Ophth Soln 2.5 ML Bottle EYEBOTH SCH (19:58)
[2018-05-03] MEDS: Acetaminophen/HYDROcodone 325-5 MG Tab PO PRN ×2 (02:22→19:59)
--- NOTE | 2018-05-03 08:38 | CR ---
DATE OF SERVICE: 05/01/18 CLINICAL DATA: NG tube confirmation FRONTAL VIEW OF THE CHEST FOR NG TUBE PLACEMENT: There is an NG tube in place with its distal tip located within the stomach. The side port is located at the level of the GE junction. The heart size is normal. The lungs appear clear. [id number] MTDD
--- NOTE | 2018-05-03 10:20 | PCM.PN ---
- General Info Date of Service: 05/03/18 Subjective Update: Pt is very drowsy, but she is arousable and does respond to verbal commands. Moving all 4 extremities. Pt did pull her NG tube last night. No new symptoms. She has been getting her medications through NG tube. Did have some agitation last night and needed ativan and also morphine injection. Presently sleeping. Functional Status: Reports: Pain Controlled, Urinating (has a poley in place). Denies: Tolerating Diet, Ambulating - Review of Systems General: Denies: Fever, Weakness, Fatigue HEENT: Denies: Headaches, Sinus Congestion, Sore Throat, Visual Changes Pulmonary: Denies: Sputum, Hemoptysis Cardiovascular: Denies: Chest Pain, Lightheadedness Gastrointestinal: Denies: Nausea, Vomiting Genitourinary: Denies: Dysuria, Frequency Skin: Denies: Bruising, Pruritis, Rash - Patient Data Vitals - Most Recent: Last Vital Signs Temp 98.7 F 05/03/18 00:00 Pulse 66 05/03/18 00:00 Resp 18 05/03/18 00:00 BP 160/58 H 05/03/18 00:00 Pulse Ox 96 05/03/18 00:00 Weight - Most Recent: 77.973 kg I&O - Last 24 Hours: Intake & Output 05/02/18 05/03/18 05/03/18 22:59 06:59 14:59 Intake Total 1020 1065 Output Total 1250 Balance 1020 -185 Med Orders - Current: Current Medications Acetaminophen (Tylenol) 650 mg PO Q4H PRN PRN Reason: Fever Acetaminophen (Tylenol Extra Strength) 500 mg PO QID [facility] Last Admin: 05/02/18 19:47 Dose: 500 mg Hydrocodone Bitart/Acetaminophen ([place] 325-5 Mg) 1 tab PO Q4H PRN PRN Reason: Pain Last Admin: 05/03/18 02:22 Dose: 1 tab Heparin Sodium (Porcine) (Heparin Sodium) 5,000 units SUBCUT Q12HR [facility] Last Admin: 05/02/18 19:53 Dose: 2,500 units Lactated Ringer's (Ringers, Lactated) 1,000 mls @ 75 mls/hr IV ASDIRECTED [facility] Last Admin: 05/02/18 23:50 Dose: 75 mls/hr Sodium Nitroprusside 50 mg/ (Dextrose/Water) 250 mls @ 6.3 mls/hr IV TITRATE [facility]; Protocol Last Titration: 05/01/18 18:50 Dose: 0.6 mcg/kg/min, 12.6 mls/hr Latanoprost (Xalatan 0.005% Ophth Soln) 0 ml EYEBOTH BEDTIME [facility] Last Admin: 05/02/18 19:58 Dose: Not Given Lisinopril (Prinivil) 20 mg PO DAILY [facility] Last Admin: 05/02/18 13:22 Dose: 20 mg Lorazepam (Ativan) 1 mg IVPUSH Q4H PRN PRN Reason: Agitation Last Admin: 05/03/18 00:39 Dose: 1 mg Morphine Sulfate (Morphine) 2 mg IVPUSH Q4H PRN PRN Reason: Pain Last Admin: 05/02/18 11:45 Dose: 2 mg Pantoprazole Sodium (Protonix) 40 mg PO DAILY [facility] Last Admin: 05/02/18 13:25 Dose: 40 mg Senna (Senna) 17.2 mg PO DAILY [facility] Last Admin: 05/02/18 13:23 Dose: 17.2 mg Simvastatin (Zocor) 40 mg PO BEDTIME [facility] Last Admin: 05/02/18 19:47 Dose: 40 mg Sodium Chloride (Saline Flush) 10 ml FLUSH ASDIRECTED PRN PRN Reason: Keep Vein Open Discontinued Medications Aspirin (Aspirin) 324 mg PO ONETIME ONE Stop: 05/01/18 08:36 Last Admin: 05/01/18 16:19 Dose: Not Given Atorvastatin Calcium (Lipitor) 80 mg PO ONETIME ONE Stop: 05/01/18 08:48 Last Admin: 05/01/18 16:25 Dose: Not Given Dexamethasone (Dexamethasone) 4 mg IVPUSH ONETIME ONE Stop: 05/01/18 19:09 Last Admin: 05/01/18 19:41 Dose: 4 mg Dexamethasone (Dexamethasone) Confirm Administered Dose 4 mg .ROUTE .STK-MED ONE Stop: 05/01/18 19:15 Last Admin: 05/01/18 19:36 Dose: Not Given Ketorolac Tromethamine (Toradol) Confirm Administered Dose 30 mg .ROUTE .STK- MED ONE Stop: 05/01/18 15:40 Last Admin: 05/01/18 16:26 Dose: Not Given Ketorolac Tromethamine (Toradol) 15 mg IVPUSH ONETIME ONE Stop: 05/01/18 16:31 Last Admin: 05/01/18 16:00 Dose: 15 mg Labetalol HCl (Normodyne) 10 mg IVPUSH ONETIME ONE; Protocol Stop: 05/01/18 08:38 Last Admin: 05/01/18 10:30 Dose: 10 mg Labetalol HCl (Normodyne) 5 mg IVPUSH ONETIME ONE; Protocol Stop: 05/01/18 08:46 Last Admin: 05/01/18 16:24 Dose: Not Given Lisinopril (Prinivil) Confirm Administered Dose 20 mg .ROUTE .STK-MED ONE Stop: 05/01/18 18:04 Last Admin: 05/01/18 18:34 Dose: Not Given Lorazepam (Ativan) Confirm Administered Dose 2 mg .ROUTE .STK-MED ONE Stop: 05/01/18 12:08 Last Admin: 05/01/18 16:26 Dose: Not Given Lorazepam (Ativan) 1 mg IVPUSH ONETIME ONE Stop: 05/01/18 12:13 Last Admin: 05/01/18 17:10 Dose: 1 mg Lorazepam (Ativan) 1 mg IVPUSH Q6H PRN PRN Reason: Agitation Last Admin: 05/01/18 21:09 Dose: 1 mg Metoprolol Tartrate (Lopressor) Confirm Administered Dose 5 mg .ROUTE .STK-MED ONE Stop: 05/01/18 08:51 Last Admin: 05/01/18 16:26 Dose: Not Given Metoprolol Tartrate (Lopressor) 5 mg IVPUSH ONETIME ONE Stop: 05/01/18 16:31 Last Admin: 05/01/18 08:50 Dose: 5 mg Morphine Sulfate (Morphine) 2 mg IVPUSH Q6H PRN PRN Reason: Pain Last Admin: 05/01/18 18:36 Dose: 2 mg Ondansetron HCl (Zofran) 8 mg IVPUSH ONETIME ONE Stop: 05/01/18 16:31 Last Admin: 05/01/18 10:35 Dose: 8 mg - Exam Quality Assessment: Urine Catheter (draining clear straw colored urine), DVT Prophylaxis. No: Skin Breakdown General: Alert, Oriented, Other (drosy, but arousable) HEENT: Pupils Equal, Pupils Reactive, EOMI, Mucous Membr. Moist/[place] Neck: Supple Lungs: Clear to Auscultation, Normal Respiratory Effort Cardiovascular: Regular Rate, Regular Rhythm Back Exam: Normal Inspection, Full Range of Motion Extremities: Normal Inspection, Normal Range of Motion, Non-Tender, Normal Capillary Refill, Other (moves all four extremities. Right side strenght is 4/5 and left is 5/5) Peripheral Pulses: 2+: Carotid (L), Carotid (R) Skin: Warm, Intact Neurological: No New Focal Deficit Psy/Mental Status: Alert - Problem List & Annotations (1) CVA (cerebral vascular accident) SNOMED Code(s): 564555899 Code(s): I63.9 - CEREBRAL INFARCTION, UNSPECIFIED Status: Acute Current Visit: Yes Qualifiers: CVA mechanism: unspecified Qualified Code(s): I63.9 - Cerebral infarction, unspecified - Problem List Review Problem List Initiated/Reviewed/Updated: Yes - My Orders Last 24 Hours: My Active Orders 05/02/18 09:44 Transfer Patient (Change bed) [ADT] Routine 05/02/18 10:15 Pantoprazole [ProTONIX] 40 mg PO DAILY 05/02/18 10:33 Consult to Speech Language Pathology [SIGNAL INTELLIGENCE/ELECTRONIC WARFARE Evaluation and Treatment] [CONS] Routine 05/02/18 11:00 Consult to Occupational Therapy [OT Evaluation and Treatment] [CONS] Routine Consult to Physical Therapy [PT Evaluation and Treatment] [CONS] Routine 05/02/18 20:00 Heparin Sodium 5,000 units SUBCUT Q12HR 05/03/18 08:00 BASIC METABOLIC PANEL,BMP [CHEM] Routine CBC WITH AUTO DIFF [HEME] Routine INR,PT,PROTHROMBIN TIME [COAG] Routine - Assessment Assessment:: Right hemiparesis with acute ischemic CVA improving - Plan Plan:: Pt's Sodium Nipride drip was discontinue last night. she has been maintaining her systolic pressure around 140-150mmhg. Now on her routine home meds through NG tube.Pt is doing way better today. no agitation or irritability. She is alert and oriented to place and person. She is appropriately responding to verbal commands. Able to move all four extremities. left better than right. He right side strength is 3-4/5. Pt did ask for water, I did a trial of 10cc of water, she does appear to have good swallow reflex, no choking.Will have speech therapy evaluation of Friday. Pt does have NG tube presently per family request and is getting her routine medication through it. I am hesitant to start her oral diet without speech eval. so will continue NG feed medications. Also started protonix 40mg per NG to prevent gastritis. Her urine output has decreased will increase her LR to 75cc/hr so she gets 1800cc/day. Will keep her on sips of fluid less than 10cc at at time, continue NG medications. Will get her CBC and BMp in Am. 05/03/18 Pt is drowsy but arousable. She does respond normally to verbal commands but slow. Moves all 4 extremities. right side strength is 4/5 and left is 5/5. She has pulled her NG tubes, will have it placed back. Will continue IV fluids for hydration.The urine in [place] appear clear straw colored. Only small sips less than 10cc at a times given orally, with choking precaution. Will have speech eval before starting orally. Appears to be improving from the recent stroke. Her CBC, BMP and INR appear stable today.
[2018-05-03] MEDS: Heparin Sodium 5,000 UNITS/0.5 ML Syringe SUBCUT SCH ×3 (10:49→20:00)
[2018-05-03] MEDS: Lisinopril 20 MG Tab PO SCH (10:49)
[2018-05-03] MEDS: Pantoprazole 40 MG Tab.CR PO SCH (10:50)
[2018-05-03] MEDS: Acetaminophen 500 MG Tab PO SCH ×4 (10:50→20:00)
[2018-05-03] MEDS: Sennosides 8.6 MG Tab PO SCH (10:50)
[2018-05-03] MEDS: Lactated Ringers 1,000 ML IV SCH (11:54)
[2018-05-03] MEDS ORDERED: Metoprolol Tartrate 25 MG Tab PO SCH (19:00)
[2018-05-03] MEDS: Simvastatin 40 MG Tab PO SCH (20:00)
[2018-05-03] MEDS: Latanoprost 0.005% Ophth Soln 2.5 ML Bottle EYEBOTH SCH (21:12)
[2018-05-04] MEDS: Acetaminophen/HYDROcodone 325-5 MG Tab PO PRN ×2 (00:19→05:27)
[2018-05-04] MEDS: Lactated Ringers 1,000 ML IV SCH (00:22)
[2018-05-04] MEDS ORDERED: Heparin Sodium 5,000 Units/ML Vial ONE (07:31)
[2018-05-04] MEDS ORDERED: Metoprolol Tartrate 25 MG Tab PO SCH (08:00)
[2018-05-04] MEDS: Sennosides 8.6 MG Tab PO SCH (08:07)
[2018-05-04] MEDS: Pantoprazole 40 MG Tab.CR PO SCH (08:07)
[2018-05-04] MEDS: Acetaminophen 500 MG Tab PO SCH ×2 (08:07→12:30)
[2018-05-04] MEDS: Lisinopril 20 MG Tab PO SCH (08:08)
[2018-05-04] MEDS: Heparin Sodium 5,000 UNITS/0.5 ML Syringe SUBCUT SCH (08:09)
--- NOTE | 2018-05-04 09:01 | PCM.DCSUM1 ---
Discharge Summary - Hospital Course Diagnosis: Stroke: Yes Modified [place] Scale: Mod.Sev.Disability ;Unable to Walk/Attend Bodily Needs W/ O Assistance Modified [place] Scale Score: 4 - Discharge Data Discharge Date: 05/04/18 Discharge Disposition: DC/Tfer W/I Hosp To Swing 61 Condition: Good - Discharge Diagnosis/Problem(s) (1) CVA (cerebral vascular accident) SNOMED Code(s): 839327388 ICD Code: I63.9 - CEREBRAL INFARCTION, UNSPECIFIED Status: Acute Priority : High Current Visit: Yes Qualifiers: CVA mechanism: unspecified Qualified Code(s): I63.9 - Cerebral infarction, unspecified (2) Broca's aphasia SNOMED Code(s): 413470226 ICD Code: R47.01 - APHASIA Status: Acute Priority: High Current Visit: Yes - Patient Summary/Data Consults: Consultations 05/02/18 10:33 Consult to Speech Language Pathology [GUN FITTER Evaluation and Treatment] [CONS] Routine Please Evaluate and Treat GUN FITTER Reason for Consult: Swallow Pending Discharge: Recent right hemiparesis This query below is only for informational purposes and is not editable. Admission Diagnosis/Problem: CVA, Cerebrovascular accident 05/02/18 11:00 Consult to Occupational Therapy [OT Evaluation and Treatment] [CONS] Routine Please Evaluate and Treat. OT Reason for Consult: ADL's This query below is only for informational purposes and is not editable. Admission Diagnosis/Problem: CVA, Cerebrovascular accident Consult to Physical Therapy [PT Evaluation and Treatment] [CONS] Routine Please Evaluate and Treat. PT Reason for Consult: Strengthening This query below is only for informational purposes and is not editable. Admission Diagnosis/Problem: CVA, Cerebrovascular accident - Patient Instructions Diet: NPO Driving: Do Not Drive - Discharge Plan Home Medications: Home Meds Acetaminophen [Tylenol Extra Strength] 500 mg PO QID 10/11/16 [History] Latanoprost [Xalatan 0.005% Ophth Soln] 1 drop EYEBOTH BEDTIME 10/11/16 [History ] Simvastatin [Zocor] 40 mg PO BEDTIME 10/11/16 [History] Hydrocodone/Acetaminophen [[place] 5-325] 1 each PO Q4H PRN 07/23/17 [History] Sennosides [Senna] 2 tab PO DAILY 07/23/17 [History] Lisinopril [Prinivil] 20 mg PO DAILY 30 Days tablet 10/02/17 [Rx] Forms: ED Department Discharge Referrals: Mckinley Matute MD [Primary Care Provider] - - Discharge Summary/Plan Comment Discharge Summary/Plan Comment: Patient will be transferred to Swing bed for rehabilitation and management. Improvement of symptoms for both weakness and aphasia. Patient able to speak with some coherence but not near baseline yet. - Patient Data Vitals - Most Recent: Last Vital Signs Temp 36.6 C 05/04/18 00:00 Pulse 70 05/04/18 08:07 Resp 18 05/04/18 00:00 BP 161/65 H 05/04/18 08:08 Pulse Ox 96 05/04/18 00:00 Weight - Most Recent: 77.973 kg I&O - Last 24 hours: Intake & Output 05/03/18 05/04/18 05/04/18 22:59 06:59 14:59 Intake Total 900 1377 Output Total 900 700 Balance 0 677 Lab Results - Last 24 hrs: Laboratory Results - last 24 hr 05/03/18 05/03/18 05/03/18 Range/Units 10:20 10:20 10:40 WBC 11.8 H D (4.0-11.0) K/uL RBC 4.26 (3.80-5.80) M/uL Hgb 13.0 (11.5-16.5) g/dL Hct 38.9 (37.0-47.0) % MCV 91 (76-96) fL MCH 30.5 (27.0-32.0) pg MCHC 33.4 (31.0-35.0) g/dL RDW 12.4 (11.0-16.0) % Plt Count 108 L D (150-500) K/uL MPV 10.3 H (6.0-10.0) fL Neut % (Auto) 81.3 H (45.0-70.0) % Lymph % (Auto) 10.0 L (20.0-40.0) % [place] % (Auto) 6.0 (3.0-10.0) % Eos % (Auto) 2.4 (1.0-5.0) % Baso % (Auto) 0.3 (0.0-0.5) % Neut # (Auto) 9.63 H (2.00-7.50) K/uL Lymph # (Auto) 1.18 L (1.50-4.00) K/uL [place] # (Auto) 0.71 (0.20-0.80) K/uL Eos # (Auto) 0.29 (0.04-0.40) K/uL Baso # (Auto) 0.03 (0.02-0.10) K/uL Whole Blood INR 1.0 (1.0-3.5) Sodium 141 (136-145) mmol/L Potassium 4.0 (3.5-5.1) mmol/L Chloride 106 (98-107) mmol/L Carbon Dioxide 27.2 (21.0-32.0) mmol/L Anion Gap 11.8 (5.0-15.0) mmol/L BUN 17 (8-26) mg/dL Creatinine 0.61 (0.55-1.02) mg/dL Est Cr Clr Drug Dosing 66.76 mL/min Estimated GFR (MDRD) > 60 (>60) MLS/MIN BUN/Creatinine Ratio 27.9 H (6-25) Glucose 87 (74-100) mg/dL Calcium 10.1 (8.5-10.1) mg/dL Med Orders - Current: Current Medications Acetaminophen (Tylenol) 650 mg PO Q4H PRN PRN Reason: Fever Acetaminophen (Tylenol Extra Strength) 500 mg PO QID [facility] Last Admin: 05/04/18 08:07 Dose: 500 mg Hydrocodone Bitart/Acetaminophen ([place] 325-5 Mg) 1 tab PO Q4H PRN PRN Reason: Pain Last Admin: 05/04/18 05:27 Dose: 1 tab Heparin Sodium (Porcine) (Heparin Sodium) 5,000 units SUBCUT Q12HR [facility] Last Admin: 05/04/18 08:09 Dose: 2,500 units Lactated Ringer's (Ringers, Lactated) 1,000 mls @ 75 mls/hr IV ASDIRECTED [facility] Last Admin: 05/04/18 00:22 Dose: 75 mls/hr Sodium Nitroprusside 50 mg/ (Dextrose/Water) 250 mls @ 6.3 mls/hr IV TITRATE [facility]; Protocol Last Titration: 05/01/18 18:50 Dose: 0.6 mcg/kg/min, 12.6 mls/hr Latanoprost (Xalatan 0.005% Ophth Soln) 0 ml EYEBOTH BEDTIME [facility] Last Admin: 05/03/18 21:12 Dose: Not Given Lisinopril (Prinivil) 20 mg PO DAILY [facility] Last Admin: 05/04/18 08:08 Dose: 20 mg Lorazepam (Ativan) 1 mg IVPUSH Q4H PRN PRN Reason: Agitation Last Admin: 05/03/18 00:39 Dose: 1 mg Metoprolol Tartrate (Lopressor) 25 mg PO Q12H [facility] Last Admin: 05/04/18 08:07 Dose: 25 mg Morphine Sulfate (Morphine) 2 mg IVPUSH Q4H PRN PRN Reason: Pain Last Admin: 05/02/18 11:45 Dose: 2 mg Pantoprazole Sodium (Protonix) 40 mg PO DAILY [facility] Last Admin: 05/04/18 08:07 Dose: 40 mg Senna (Senna) 17.2 mg PO DAILY [facility] Last Admin: 05/04/18 08:07 Dose: 17.2 mg Simvastatin (Zocor) 40 mg PO BEDTIME [facility] Last Admin: 05/03/18 20:00 Dose: 40 mg Sodium Chloride (Saline Flush) 10 ml FLUSH ASDIRECTED PRN PRN Reason: Keep Vein Open Discontinued Medications Aspirin (Aspirin) 324 mg PO ONETIME ONE Stop: 05/01/18 08:36 Last Admin: 05/01/18 16:19 Dose: Not Given Atorvastatin Calcium (Lipitor) 80 mg PO ONETIME ONE Stop: 05/01/18 08:48 Last Admin: 05/01/18 16:25 Dose: Not Given Dexamethasone (Dexamethasone) 4 mg IVPUSH ONETIME ONE Stop: 05/01/18 19:09 Last Admin: 05/01/18 19:41 Dose: 4 mg Dexamethasone (Dexamethasone) Confirm Administered Dose 4 mg .ROUTE .STK-MED ONE Stop: 05/01/18 19:15 Last Admin: 05/01/18 19:36 Dose: Not Given Heparin Sodium (Porcine) (Heparin Sodium) Confirm Administered Dose 5,000 units .ROUTE .STK-MED ONE Stop: 05/04/18 07:32 Last Admin: 05/04/18 08:08 Dose: Not Given Ketorolac Tromethamine (Toradol) Confirm Administered Dose 30 mg .ROUTE .STK- MED ONE Stop: 05/01/18 15:40 Last Admin: 05/01/18 16:26 Dose: Not Given Ketorolac Tromethamine (Toradol) 15 mg IVPUSH ONETIME ONE Stop: 05/01/18 16:31 Last Admin: 05/01/18 16:00 Dose: 15 mg Labetalol HCl (Normodyne) 10 mg IVPUSH ONETIME ONE; Protocol Stop: 05/01/18 08:38 Last Admin: 05/01/18 10:30 Dose: 10 mg Labetalol HCl (Normodyne) 5 mg IVPUSH ONETIME ONE; Protocol Stop: 05/01/18 08:46 Last Admin: 05/01/18 16:24 Dose: Not Given Lisinopril (Prinivil) Confirm Administered Dose 20 mg .ROUTE .STK-MED ONE Stop: 05/01/18 18:04 Last Admin: 05/01/18 18:34 Dose: Not Given Lorazepam (Ativan) Confirm Administered Dose 2 mg .ROUTE .STK-MED ONE Stop: 05/01/18 12:08 Last Admin: 05/01/18 16:26 Dose: Not Given Lorazepam (Ativan) 1 mg IVPUSH ONETIME ONE Stop: 05/01/18 12:13 Last Admin: 05/01/18 17:10 Dose: 1 mg Lorazepam (Ativan) 1 mg IVPUSH Q6H PRN PRN Reason: Agitation Last Admin: 05/01/18 21:09 Dose: 1 mg Metoprolol Tartrate (Lopressor) Confirm Administered Dose 5 mg .ROUTE .STK-MED ONE Stop: 05/01/18 08:51 Last Admin: 05/01/18 16:26 Dose: Not Given Metoprolol Tartrate (Lopressor) 5 mg IVPUSH ONETIME ONE Stop: 05/01/18 16:31 Last Admin: 05/01/18 08:50 Dose: 5 mg Metoprolol Tartrate (Lopressor) 25 mg PO Q12H [facility] Last Admin: 05/03/18 20:00 Dose: 25 mg Morphine Sulfate (Morphine) 2 mg IVPUSH Q6H PRN PRN Reason: Pain Last Admin: 05/01/18 18:36 Dose: 2 mg Ondansetron HCl (Zofran) 8 mg IVPUSH ONETIME ONE Stop: 05/01/18 16:31 Last Admin: 05/01/18 10:35 Dose: 8 mg
== END 2018-05-04 14:00 | disposition swing bed (61) | DRG 66 ==
LOC: LB.ED 07:55 → LB.MS 08:48
PROVIDERS: ADMIT Family Medicine; ATTEND Family Medicine
DX: I63.9 Cerebral infarction, unspecified (principal); I63.8 Other cerebral infarction; R47.01 Aphasia; I16.0 Hypertensive urgency; R53.1 Weakness; I10 Essential (primary) hypertension; R45.1 Restlessness and agitation; M54.9 Dorsalgia, unspecified; G89.29 Other chronic pain; M19.90 Unspecified osteoarthritis, unspecified site; H54.7 Unspecified visual loss; H91.90 Unspecified hearing loss, unspecified ear; H40.9 Unspecified glaucoma; Z96.652 Presence of left artificial knee joint
CPT/HCPCS: 36415; 70450; 80053; 84443; 85025; 85610; 99285; J3490 ×2; 71045; 80048; 92526-GN; 92610-GN; 97110-GP; 97161-GP; A9270-GY; J1100; J1644-GY; J1885; J2060; J2270; J2405; J7060; J7120

== ENCOUNTER 2018-11-16 12:07 | Inpatient (IN) | payer MEDICARE, BC ==
[2018-11-16] MEDS: Morphine 2 MG/ML Syringe IVPUSH PRN ×3 (12:20→14:49)
--- NOTE | 2018-11-16 14:16 | PCM.HP ---
H&P History of Present Illness - General Date of Service: 11/16/18 Admit Problem/Dx: Admission Diagnosis/Problem Admission Diagnosis/Problem Metastatic neoplasm Source of Information: Patient, Family History Limitations: Reports: No Limitations - History of Present Illness Initial Comments - Free Text/Narative: This is a 83yo F here for severe pain and inability to get out of bed. She has had worsening symptoms the past week and it has been progressive and painful. Her pain is 10/10 at this time and she has difficulty with any movement. She has had issues with constipation lately as well. Patient has a history of metastatic cancer that has spread to the pelvis and bone. It is in the lungs as well and she has had increasing shortness of breath of the past month. Onset of Symptoms: Reports: Gradual Duration of Symptoms: Reports: Week(s):, Getting Worse Location: Reports: Generalized Quality: Reports: Ache Severity: Severe Improves with: Reports: None Worsens with: Reports: None Associated Symptoms: Reports: Loss of Appetite, Weakness - Related Data Allergies/Adverse Reactions: Allergies Allergy/AdvReac Type Severity Reaction Status Date / Time No Known Allergies Allergy Verified 11/16/18 13:48 Home Medications: Home Meds RX: Latanoprost [Xalatan 0.005% Ophth Soln] 1 drop EYEBOTH BEDTIME 10/11/16 [ History] RX: Simvastatin [Zocor] 40 mg PO BEDTIME 10/11/16 [History] RX: Hydrocodone/Acetaminophen [[place] 5-325] 1 each PO Q4H PRN 07/23/17 [History] RX: Sennosides [Senna] 2 tab PO DAILY 07/23/17 [History] RX: Lisinopril [Prinivil] 20 mg PO DAILY 30 Days tablet 10/02/17 [Rx] Acetaminophen [Tylenol Extra Strength] 500 mg PO QID 05/05/18 [History] Lansoprazole [Prevacid] 15 mg PO ACBREAKFAST 05/05/18 [History] Magnesium Hydroxide [Milk of Magnesia] 30 ml PO DAILY PRN 05/05/18 [History] RX: Ferrous Sulfate 324 mg PO BIDMEALS 05/05/18 [History] Docusate Sodium [Stool Softener] 1,000 mg PO DAILY 11/16/18 [History] Ergocalciferol (Vitamin D2) [Vitamin D2] 2,000 unit PO DAILY 11/16/18 [History] RX: Metoprolol Tartrate [Lopressor] 37.5 mg PO Q12H 11/16/18 [History] RX: Omeprazole 40 mg PO DAILY 11/16/18 [History] Past Medical History HEENT History: Reports: Glaucoma, Hard of Hearing, Impaired Vision Cardiovascular History: Reports: Hypertension Respiratory History: Reports: None Gastrointestinal History: Reports: None Genitourinary History: Reports: Urinary Incontinence [employer]PARER History: Reports: Other OB/BYN History: parity: 3, gravity: 3. vaginal deliveries Musculoskeletal History: Reports: Back Pain, Chronic, Osteoarthritis Neurological History: Reports: None, CVA Endocrine/Metabolic History: Reports: None Hematologic History: Reports: Anticoagulation Therapy, Blood Transfusion(s) Oncologic (Cancer) History: Reports: Other (See Below) Other Oncologic History: Skin Cancer - Infectious Disease History Infectious Disease History: Reports: Chicken Pox - Past Surgical History GI Surgical History: Reports: Colonoscopy Musculoskeletal Surgical History: Reports: Shoulder Surgery, Other (See Below) Other Musculoskeletal Surgeries/Procedures:: left knee TKR. right knee pain. Left shoulder - reverse TSA. Left wrist fracture. Dermatological Surgical History: Reports: Skin Biopsy Social & Family History - Family History Family Medical History: Noncontributory - Caffeine Use Caffeine Use: Reports: Coffee, Tea H&P Review of Systems - Review of Systems: Review Of Systems: ROS reveals no pertinent complaints other than HPI. Exam - Exam Exam: See Below - Vital Signs Vital Signs: Last Vital Signs Temp 36.9 C 11/16/18 12:25 Pulse 51 L 11/16/18 12:25 Resp 18 11/16/18 12:25 BP 141/47 H 11/16/18 12:25 Pulse Ox 99 11/16/18 12:25 - Exam Quality Assessment: Supplemental Oxygen General: Alert, Oriented, Cooperative HEENT: PERRLA, Conjunctiva Clear, EOMI Neck: Supple, Trachea Midline Lungs: Decreased Breath Sounds, Rhonchi Cardiovascular: Regular Rate, Regular Rhythm GI/Abdominal Exam: Soft, Non-Tender, Abnormal Bowel Sounds (slow bowel sounds) - Problem List (1) History of CVA (cerebrovascular accident) SNOMED Code(s): 609571253 ICD Code: Z86.73 - PRSNL HX OF TIA (TIA), AND CEREB INFRC W/O RESID DEFICITS Status: Chronic Current Visit: Yes (2) Metastatic cancer SNOMED Code(s): 735877418 ICD Code: C79.9 - SECONDARY MALIGNANT NEOPLASM OF UNSPECIFIED SITE Status: Acute Priority: High Current Visit: Yes (3) Palliative care patient SNOMED Code(s): 312013380 ICD Code: Z51.5 - ENCOUNTER FOR PALLIATIVE CARE Status: Acute Priority: High Current Visit: Yes (4) Pain management SNOMED Code(s): 680654603 ICD Code: R52 - PAIN, UNSPECIFIED Status: Acute Priority: High Current Visit: Yes (5) History of arthroplasty of right knee SNOMED Code(s): 709479231 ICD Code: Z96.651 - PRESENCE OF RIGHT ARTIFICIAL KNEE JOINT Status: Acute Priority: High Current Visit: No (6) Broca's aphasia SNOMED Code(s): 214769396 ICD Code: R47.01 - APHASIA Status: Chronic Priority: Low Current Visit : Yes Problem List Initiated/Reviewed/Updated: Yes Orders Last 24hrs: Active Orders 24 hr Category Date Time Status Patient Status [ADT] Routine ADT 11/16/18 12:31 Active Oxygen Therapy [RC] PRN Care 11/16/18 12:31 Active Vital Signs [RC] Q4H Care 11/16/18 12:31 Active Morphine Med 11/16/18 12:33 Active 1 mg IVPUSH Q1H PRN Medication Orders Morphine Sulfate (Morphine) 1 mg IVPUSH Q1H PRN PRN Reason: Pain Last Admin: 11/16/18 13:43 Dose: 1 mg Admin: 11/16/18 12:20 Dose: 1 mg Assessment/Plan Comment:: Patient admitted for management of metastatic cancer pain. She is unable to get out of bed due to the pain of her metastatic cancer. Discussed medication management and use of morphine as directed. Counseled on side effects and dosing.
[2018-11-16] MEDS ORDERED: Morphine PF 30 MG/30 ML PCA Vial IV PRN (16:07)
[2018-11-16] MEDS: Sodium Chloride 0.9% 1,000 ML IV SCH (17:00)
[2018-11-16] MEDS ORDERED: Magnesium Hydroxide 400 MG/5 ML Susp 30 ML Cup PO PRN (17:01)
[2018-11-16] MEDS ORDERED: Docusate Sodium 100 MG Cap PO SCH (17:15)
[2018-11-16] MEDS: Acetaminophen 500 MG Tab PO SCH (20:21)
[2018-11-16] MEDS: Docusate Sodium 100 MG Cap PO SCH (20:22)
[2018-11-16] MEDS: Metoprolol Tartrate 25 MG Tab PO SCH (20:22)
[2018-11-16] MEDS: Latanoprost 0.005% Ophth Soln 2.5 ML Bottle EYEBOTH SCH (20:23)
[2018-11-16] MEDS: Hydrochlorothiazide 12.5 MG Cap PO SCH (21:26)
[2018-11-16] MEDS: Lisinopril 20 MG Tab PO SCH (21:26)
[2018-11-17] MEDS ORDERED: Non-Formulary Medication 1 Each (Lansoprazole [Prevacid] 15 MG) PO SCH (07:00)
[2018-11-17] MEDS ORDERED: Omeprazole 20 MG Cap.CR ONE (07:42)
[2018-11-17] MEDS: Docusate Sodium 100 MG Cap PO SCH ×2 (07:54→19:33)
[2018-11-17] MEDS: Cholecalciferol (Vitamin D3) 2,000 Unit Cap PO SCH (07:54)
[2018-11-17] MEDS: Sennosides 8.6 MG Tab PO SCH (07:55)
[2018-11-17] MEDS: Acetaminophen 500 MG Tab PO SCH ×4 (07:55→19:33)
[2018-11-17] MEDS: Hydrochlorothiazide 12.5 MG Cap PO SCH ×2 (07:55→16:20)
[2018-11-17] MEDS: Omeprazole 40 MG Cap.CR PO SCH (07:56)
[2018-11-17] MEDS ORDERED: Lisinopril 20 MG Tab PO SCH (08:00)
[2018-11-17] MEDS ORDERED: Hydrochlorothiazide 12.5 MG Cap PO SCH (08:00)
[2018-11-17] MEDS: Lisinopril 20 MG Tab PO SCH ×2 (10:39→19:34)
[2018-11-17] MEDS: Metoprolol Tartrate 25 MG Tab PO SCH ×2 (10:39→19:34)
[2018-11-17] MEDS: Morphine PF 30 MG/30 ML PCA Vial IV SCH (19:23)
[2018-11-17] MEDS: FLUoxetine 10 MG Cap PO SCH (19:33)
[2018-11-17] MEDS: Latanoprost 0.005% Ophth Soln 2.5 ML Bottle EYEBOTH SCH (19:36)
[2018-11-17] MEDS: Sodium Chloride 0.9% 1,000 ML IV SCH (23:51)
[2018-11-18] MEDS: Ondansetron 4 MG/2 ML SDV IVPUSH PRN (06:37)
[2018-11-18] MEDS: Omeprazole 40 MG Cap.CR PO SCH (07:09)
[2018-11-18] MEDS: Acetaminophen 500 MG Tab PO SCH ×4 (08:30→20:33)
[2018-11-18] MEDS: Hydrochlorothiazide 12.5 MG Cap PO SCH ×2 (08:30→17:00)
[2018-11-18] MEDS: Docusate Sodium 100 MG Cap PO SCH ×2 (08:30→20:33)
[2018-11-18] MEDS: Sennosides 8.6 MG Tab PO SCH (08:30)
[2018-11-18] MEDS: Metoprolol Tartrate 25 MG Tab PO SCH ×2 (08:30→20:33)
[2018-11-18] MEDS: Lisinopril 20 MG Tab PO SCH ×2 (08:30→20:33)
[2018-11-18] MEDS: Cholecalciferol (Vitamin D3) 2,000 Unit Cap PO SCH (08:30)
--- NOTE | 2018-11-18 08:34 | PCM.PN ---
- General Info Date of Service: 11/17/18 Subjective Update: Patient arousable but very tired. She is able to convey that her pain is controlled and is resting comfortably. Family at bedside. Functional Status: Reports: Pain Controlled - Review of Systems General: Reports: No Symptoms HEENT: Reports: No Symptoms Pulmonary: Reports: No Symptoms Cardiovascular: Reports: No Symptoms Gastrointestinal: Reports: No Symptoms Genitourinary: Reports: No Symptoms Musculoskeletal: Reports: No Symptoms Skin: Reports: No Symptoms Neurological: Reports: No Symptoms Psychiatric: Reports: No Symptoms - Patient Data Vitals - Most Recent: Last Vital Signs Temp 36.5 C 11/18/18 06:43 Pulse 83 11/18/18 06:43 Resp 20 11/18/18 06:43 BP 113/42 L 11/18/18 06:43 Pulse Ox 95 11/18/18 06:43 Weight - Most Recent: 77.678 kg I&O - Last 24 Hours: Intake & Output 11/17/18 11/18/18 11/18/18 22:59 06:59 14:59 Intake Total 360 Balance 360 Med Orders - Current: Current Medications Acetaminophen (Tylenol Extra Strength) 500 mg PO QID [facility] Last Admin: 11/18/18 08:30 Dose: Not Given Cholecalciferol (Vitamin D3) 2,000 unit PO DAILY [facility] Last Admin: 11/18/18 08:30 Dose: Not Given Docusate Sodium (Colace) 100 mg PO BID [facility] Last Admin: 11/18/18 08:30 Dose: Not Given Fluoxetine HCl (Prozac) 10 mg PO BEDTIME [facility] Last Admin: 11/17/18 19:33 Dose: 10 mg Hydrochlorothiazide (Hydrochlorothiazide) 12.5 mg PO BIDDIURETIC [facility] Last Admin: 11/18/18 08:30 Dose: Not Given Sodium Chloride (Normal Saline) 1,000 mls @ 30 mls/hr IV ASDIRECTED [facility] Last Admin: 11/17/18 23:51 Dose: 30 mls/hr Latanoprost (Xalatan 0.005% Ophth Soln) 0 ml EYEBOTH BEDTIME [facility] Last Admin: 11/17/18 19:36 Dose: 1 drop Lisinopril (Prinivil) 20 mg PO BID [facility] Last Admin: 11/18/18 08:30 Dose: Not Given Magnesium Hydroxide (Milk Of Magnesia) 30 ml PO DAILY PRN PRN Reason: Constipation Metoprolol Tartrate (Lopressor) 37.5 mg PO Q12HR [facility] Last Admin: 11/18/18 08:30 Dose: Not Given Morphine Sulfate (Morphine Thread Weaver 30 Mg In 30 Ml) 0 mg IV ASDIRECTED [facility]; Protocol Last Admin: 11/17/18 19:23 Dose: 30 mg Omeprazole (Omeprazole) 40 mg PO ACBREAKFAST [facility] Last Admin: 11/18/18 07:09 Dose: Not Given Ondansetron HCl (Zofran) 8 mg IVPUSH Q6H PRN PRN Reason: Nausea/Vomiting Last Admin: 11/18/18 06:37 Dose: 8 mg Senna (Senna) 17.2 mg PO DAILY [facility] Last Admin: 11/18/18 08:30 Dose: Not Given Discontinued Medications Docusate Sodium (Colace) 1,000 mg PO DAILY [facility] Last Admin: 11/16/18 19:19 Dose: Not Given Hydrochlorothiazide (Hydrochlorothiazide) 12.5 mg PO BIDDIURETIC [facility] Lisinopril (Prinivil) 20 mg PO DAILY [facility] Morphine Sulfate (Morphine) 1 mg IVPUSH Q1H PRN PRN Reason: Pain Last Admin: 11/16/18 14:49 Dose: 1 mg Morphine Sulfate (Morphine Thread Weaver 30 Mg In 30 Ml) 0 mg IV ASDIRECTED PRN; Protocol PRN Reason: Pain Last Admin: 11/16/18 21:21 Dose: 1 mg Non-Formulary Medication (Lansoprazole [Prevacid]) 15 mg PO ACBREAKFAST [facility] Omeprazole (Omeprazole) Confirm Administered Dose 40 mg .[address]TE .[facility] ONE Stop: 11/17/18 07:43 Last Admin: 11/17/18 07:54 Dose: Not Given - Exam General: Sedated HEENT: Pupils Equal Neck: Supple Lungs: Normal Respiratory Effort, Rhonchi Cardiovascular: Regular Rate, Regular Rhythm GI/Abdominal Exam: Normal Bowel Sounds, Soft, Non-Tender Extremities: Normal Inspection Peripheral Pulses: 2+: Dorsalis Pedis (L), Dorsalis Pedis (R) Skin: Warm, Dry, Intact Neurological: No New Focal Deficit - Problem List & Annotations (1) History of CVA (cerebrovascular accident) SNOMED Code(s): 821740883 Code(s): Z86.73 - PRSNL HX OF TIA (TIA), AND CEREB INFRC W/O RESID DEFICITS Status: Chronic Current Visit: Yes (2) Metastatic cancer SNOMED Code(s): 155033930 Code(s): C79.9 - SECONDARY MALIGNANT NEOPLASM OF UNSPECIFIED SITE Status: Acute Priority: High Current Visit: Yes (3) Palliative care patient SNOMED Code(s): 965188619 Code(s): Z51.5 - ENCOUNTER FOR PALLIATIVE CARE Status: Acute Priority: High Current Visit: Yes (4) Pain management SNOMED Code(s): 732106630 Code(s): R52 - PAIN, UNSPECIFIED Status: Acute Priority: High Current Visit: Yes (5) History of arthroplasty of right knee SNOMED Code(s): 717027801 Code(s): Z96.651 - PRESENCE OF RIGHT ARTIFICIAL KNEE JOINT Status: Acute Priority: High Current Visit: No (6) Broca's aphasia SNOMED Code(s): 753991581 Code(s): R47.01 - APHASIA Status: Chronic Priority: Low Current Visit: Yes - Problem List Review Problem List Initiated/Reviewed/Updated: Yes - My Orders Last 24 Hours: My Active Orders 11/17/18 08:00 Cholecalciferol (Vitamin D3) [Vitamin D3] 2,000 unit PO DAILY Sennosides [Senna] 17.2 mg PO DAILY 11/17/18 09:15 Morphine PF [Morphine BOOKMOBILE DRIVER 30 MG in 30 ML] See Protocol IV ASDIRECTED 11/17/18 20:00 FLUoxetine [PROzac] 10 mg PO BEDTIME - Plan Plan:: Patient admitted for management of metastatic cancer pain. She is unable to get out of bed due to the pain of her metastatic cancer. Discussed medication management and use of morphine as directed. Counseled on side effects and dosing. 11/18/18 We will continue current palliative care for the patient. Continue current pain management and cares. Patient and family would like the pain to be under control and continue current comfort cares.
[2018-11-18] MEDS: Acetaminophen 650 MG Supp RECTAL PRN (14:00)
[2018-11-18] MEDS: FLUoxetine 10 MG Cap PO SCH (20:33)
[2018-11-18] MEDS: Latanoprost 0.005% Ophth Soln 2.5 ML Bottle EYEBOTH SCH (20:37)
[2018-11-19] MEDS: Morphine PF 30 MG/30 ML PCA Vial IV SCH (06:10)
[2018-11-19] MEDS: Omeprazole 40 MG Cap.CR PO SCH (06:39)
[2018-11-19] MEDS: Sennosides 8.6 MG Tab PO SCH (08:35)
[2018-11-19] MEDS: Cholecalciferol (Vitamin D3) 2,000 Unit Cap PO SCH (08:35)
[2018-11-19] MEDS: Lisinopril 20 MG Tab PO SCH ×2 (08:35→22:36)
[2018-11-19] MEDS: Acetaminophen 500 MG Tab PO SCH ×4 (08:35→22:36)
[2018-11-19] MEDS: Docusate Sodium 100 MG Cap PO SCH ×2 (08:35→22:36)
[2018-11-19] MEDS: Hydrochlorothiazide 12.5 MG Cap PO SCH ×2 (08:35→16:53)
[2018-11-19] MEDS: Metoprolol Tartrate 25 MG Tab PO SCH ×2 (08:35→22:36)
--- NOTE | 2018-11-19 09:34 | PCM.PN ---
- General Info Date of Service: 11/18/18 Subjective Update: Patient resting soundly. Discussed with family and patient's pain is under control. Functional Status: Reports: Pain Controlled - Review of Systems General: Reports: No Symptoms - Patient Data Vitals - Most Recent: Last Vital Signs Temp 36.6 C 11/18/18 20:09 Pulse 74 11/18/18 20:09 Resp 15 11/19/18 05:40 BP 109/44 L 11/18/18 14:18 Pulse Ox 96 11/18/18 20:09 Weight - Most Recent: 77.678 kg I&O - Last 24 Hours: Intake & Output 11/18/18 11/19/18 11/19/18 22:59 06:59 14:59 Intake Total 360 324 Balance 360 324 Med Orders - Current: Current Medications Acetaminophen (Tylenol Extra Strength) 500 mg PO QID [facility] Last Admin: 11/19/18 08:35 Dose: Not Given Acetaminophen (Tylenol) 650 mg RECTAL Q6H PRN PRN Reason: Temperature Last Admin: 11/18/18 14:00 Dose: 650 mg Cholecalciferol (Vitamin D3) 2,000 unit PO DAILY [facility] Last Admin: 11/19/18 08:35 Dose: Not Given Docusate Sodium (Colace) 100 mg PO BID [facility] Last Admin: 11/19/18 08:35 Dose: Not Given Fluoxetine HCl (Prozac) 10 mg PO BEDTIME [facility] Last Admin: 11/18/18 20:33 Dose: Not Given Hydrochlorothiazide (Hydrochlorothiazide) 12.5 mg PO BIDDIURETIC [facility] Last Admin: 11/19/18 08:35 Dose: Not Given Sodium Chloride (Normal Saline) 1,000 mls @ 30 mls/hr IV ASDIRECTED [facility] Last Admin: 11/17/18 23:51 Dose: 30 mls/hr Latanoprost (Xalatan 0.005% Ophth Soln) 0 ml EYEBOTH BEDTIME [facility] Last Admin: 11/18/18 20:37 Dose: Not Given Lisinopril (Prinivil) 20 mg PO BID [facility] Last Admin: 11/19/18 08:35 Dose: Not Given Magnesium Hydroxide (Milk Of Magnesia) 30 ml PO DAILY PRN PRN Reason: Constipation Metoprolol Tartrate (Lopressor) 37.5 mg PO Q12HR [facility] Last Admin: 11/19/18 08:35 Dose: Not Given Morphine Sulfate (Morphine Finance Mgr 30 Mg In 30 Ml) 0 mg IV ASDIRECTED [facility]; Protocol Last Admin: 11/19/18 06:10 Dose: 30 mg Omeprazole (Omeprazole) 40 mg PO ACBREAKFAST [facility] Last Admin: 11/19/18 06:39 Dose: Not Given Ondansetron HCl (Zofran) 8 mg IVPUSH Q6H PRN PRN Reason: Nausea/Vomiting Last Admin: 11/18/18 06:37 Dose: 8 mg Senna (Senna) 17.2 mg PO DAILY [facility] Last Admin: 11/19/18 08:35 Dose: Not Given Discontinued Medications Docusate Sodium (Colace) 1,000 mg PO DAILY [facility] Last Admin: 11/16/18 19:19 Dose: Not Given Hydrochlorothiazide (Hydrochlorothiazide) 12.5 mg PO BIDDIURETIC [facility] Lisinopril (Prinivil) 20 mg PO DAILY [facility] Morphine Sulfate (Morphine) 1 mg IVPUSH Q1H PRN PRN Reason: Pain Last Admin: 11/16/18 14:49 Dose: 1 mg Morphine Sulfate (Morphine Finance Mgr 30 Mg In 30 Ml) 0 mg IV ASDIRECTED PRN; Protocol PRN Reason: Pain Last Admin: 11/16/18 21:21 Dose: 1 mg Non-Formulary Medication (Lansoprazole [Prevacid]) 15 mg PO ACBREAKFAST [facility] Omeprazole (Omeprazole) Confirm Administered Dose 40 mg .ROUTE .[facility]-MED ONE Stop: 11/17/18 07:43 Last Admin: 11/17/18 07:54 Dose: Not Given - Exam General: Sedated Lungs: Decreased Breath Sounds, Rhonchi Cardiovascular: Regular Rate, Regular Rhythm - Problem List & Annotations (1) History of CVA (cerebrovascular accident) SNOMED Code(s): 843928968 Code(s): Z86.73 - PRSNL HX OF TIA (TIA), AND CEREB INFRC W/O RESID DEFICITS Status: Chronic Current Visit: Yes (2) Metastatic cancer SNOMED Code(s): 239492739 Code(s): C79.9 - SECONDARY MALIGNANT NEOPLASM OF UNSPECIFIED SITE Status: Acute Priority: High Current Visit: Yes (3) Palliative care patient SNOMED Code(s): 035847668 Code(s): Z51.5 - ENCOUNTER FOR PALLIATIVE CARE Status: Acute Priority: High Current Visit: Yes (4) Pain management SNOMED Code(s): 574514487 Code(s): R52 - PAIN, UNSPECIFIED Status: Acute Priority: High Current Visit: Yes (5) History of arthroplasty of right knee SNOMED Code(s): 284146721 Code(s): Z96.651 - PRESENCE OF RIGHT ARTIFICIAL KNEE JOINT Status: Acute Priority: High Current Visit: No (6) Broca's aphasia SNOMED Code(s): 723819710 Code(s): R47.01 - APHASIA Status: Chronic Priority: Low Current Visit: Yes - Problem List Review Problem List Initiated/Reviewed/Updated: Yes - My Orders Last 24 Hours: My Active Orders 11/18/18 08:43 Code Status [Resuscitation Status] Routine 11/18/18 14:08 Acetaminophen [Tylenol] 650 mg RECTAL Q6H PRN 11/19/18 02:47 Urinary Catheter Assessment [RC] 11/19/18 03:00 Insert Christy Catheter [Insert Urinary Catheter] [OM.PC] Q24H - Plan Plan:: Patient admitted for management of metastatic cancer pain. She is unable to get out of bed due to the pain of her metastatic cancer. Discussed medication management and use of morphine as directed. Counseled on side effects and dosing. 11/18/18 We will continue current palliative care for the patient. Continue current pain management and cares. Patient and family would like the pain to be under control and continue current comfort cares. 11/19/18 Patient has decreased arousal. She does appear comfortable as per her wishes. Continue comfort cares.
--- NOTE | 2018-11-19 10:10 | PCM.PN ---
- General Info Date of Service: 11/19/18 Subjective Update: This is a 83yo F on comfort cares and pain management. She is comfortable per family but not arousable at this time. 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 Functional Status: Reports: Pain Controlled - Review of Systems General: Reports: No Symptoms, Other (Patient not arousable) - Patient Data Vitals - Most Recent: Last Vital Signs Temp 37.2 C 11/19/18 09:47 Pulse 62 11/19/18 09:47 Resp 16 11/19/18 09:47 BP 109/44 L 11/18/18 14:18 Pulse Ox 94 L 11/19/18 09:47 Weight - Most Recent: 77.678 kg I&O - Last 24 Hours: Intake & Output 11/18/18 11/19/18 11/19/18 22:59 06:59 14:59 Intake Total 360 324 Balance 360 324 Med Orders - Current: Current Medications Acetaminophen (Tylenol Extra Strength) 500 mg PO QID [facility] Last Admin: 11/19/18 08:35 Dose: Not Given Acetaminophen (Tylenol) 650 mg RECTAL Q6H PRN PRN Reason: Temperature Last Admin: 11/18/18 14:00 Dose: 650 mg Cholecalciferol (Vitamin D3) 2,000 unit PO DAILY [facility] Last Admin: 11/19/18 08:35 Dose: Not Given Docusate Sodium (Colace) 100 mg PO BID [facility] Last Admin: 11/19/18 08:35 Dose: Not Given Fluoxetine HCl (Prozac) 10 mg PO BEDTIME [facility] Last Admin: 11/18/18 20:33 Dose: Not Given Hydrochlorothiazide (Hydrochlorothiazide) 12.5 mg PO BIDDIURETIC [facility] Last Admin: 11/19/18 08:35 Dose: Not Given Sodium Chloride (Normal Saline) 1,000 mls @ 30 mls/hr IV ASDIRECTED [facility] Last Admin: 11/17/18 23:51 Dose: 30 mls/hr Latanoprost (Xalatan 0.005% Ophth Soln) 0 ml EYEBOTH BEDTIME [facility] Last Admin: 11/18/18 20:37 Dose: Not Given Lisinopril (Prinivil) 20 mg PO BID [facility] Last Admin: 11/19/18 08:35 Dose: Not Given Magnesium Hydroxide (Milk Of Magnesia) 30 ml PO DAILY PRN PRN Reason: Constipation Metoprolol Tartrate (Lopressor) 37.5 mg PO Q12HR [facility] Last Admin: 11/19/18 08:35 Dose: Not Given Morphine Sulfate (Morphine Supportability Engineer 30 Mg In 30 Ml) 0 mg IV ASDIRECTED [facility]; Protocol Last Admin: 11/19/18 06:10 Dose: 30 mg Omeprazole (Omeprazole) 40 mg PO ACBREAKFAST [facility] Last Admin: 11/19/18 06:39 Dose: Not Given Ondansetron HCl (Zofran) 8 mg IVPUSH Q6H PRN PRN Reason: Nausea/Vomiting Last Admin: 11/18/18 06:37 Dose: 8 mg Senna (Senna) 17.2 mg PO DAILY [facility] Last Admin: 11/19/18 08:35 Dose: Not Given Discontinued Medications Docusate Sodium (Colace) 1,000 mg PO DAILY [facility] Last Admin: 11/16/18 19:19 Dose: Not Given Hydrochlorothiazide (Hydrochlorothiazide) 12.5 mg PO BIDDIURETIC [facility] Lisinopril (Prinivil) 20 mg PO DAILY [facility] Morphine Sulfate (Morphine) 1 mg IVPUSH Q1H PRN PRN Reason: Pain Last Admin: 11/16/18 14:49 Dose: 1 mg Morphine Sulfate (Morphine Supportability Engineer 30 Mg In 30 Ml) 0 mg IV ASDIRECTED PRN; Protocol PRN Reason: Pain Last Admin: 11/16/18 21:21 Dose: 1 mg Non-Formulary Medication (Lansoprazole [Prevacid]) 15 mg PO ACBREAKFAST [facility] Omeprazole (Omeprazole) Confirm Administered Dose 40 mg .ROUTE .[facility]-MED ONE Stop: 11/17/18 07:43 Last Admin: 11/17/18 07:54 Dose: Not Given - Exam General: Other (Patient not arousable, and appears comfortable. ) - Problem List & Annotations (1) History of CVA (cerebrovascular accident) SNOMED Code(s): 423208810 Code(s): Z86.73 - PRSNL HX OF TIA (TIA), AND CEREB INFRC W/O RESID DEFICITS Status: Chronic Current Visit: Yes (2) Metastatic cancer SNOMED Code(s): 564240347 Code(s): C79.9 - SECONDARY MALIGNANT NEOPLASM OF UNSPECIFIED SITE Status: Acute Priority: High Current Visit: Yes (3) Palliative care patient SNOMED Code(s): 153819669 Code(s): Z51.5 - ENCOUNTER FOR PALLIATIVE CARE Status: Acute Priority: High Current Visit: Yes (4) Pain management SNOMED Code(s): 876201807 Code(s): R52 - PAIN, UNSPECIFIED Status: Acute Priority: High Current Visit: Yes (5) History of arthroplasty of right knee SNOMED Code(s): 126137075 Code(s): Z96.651 - PRESENCE OF RIGHT ARTIFICIAL KNEE JOINT Status: Acute Priority: High Current Visit: No (6) Broca's aphasia SNOMED Code(s): 923419736 Code(s): R47.01 - APHASIA Status: Chronic Priority: Low Current Visit: Yes - Problem List Review Problem List Initiated/Reviewed/Updated: Yes - My Orders Last 24 Hours: My Active Orders 11/18/18 14:08 Acetaminophen [Tylenol] 650 mg RECTAL Q6H PRN 11/19/18 02:47 Urinary Catheter Assessment [RC] 11/19/18 03:00 Insert Christy Catheter [Insert Urinary Catheter] [OM.PC] Q24H - Plan Plan:: Patient admitted for management of metastatic cancer pain. She is unable to get out of bed due to the pain of her metastatic cancer. Discussed medication management and use of morphine as directed. Counseled on side effects and dosing. 11/18/18 We will continue current palliative care for the patient. Continue current pain management and cares. Patient and family would like the pain to be under control and continue current comfort cares. 11/19/18 Patient has decreased arousal. She does appear comfortable as per her wishes. Continue comfort cares. No changes but may add additional comfort care medications and support as needed.
[2018-11-19] MEDS ORDERED: Menthol/Zinc Oxide Ointment 113 GM Tube TOP ONE (16:30)
[2018-11-19] MEDS: Menthol/Zinc Oxide Ointment 113 GM Tube TOP PRN ×2 (16:33→21:41)
[2018-11-19] MEDS: Acetaminophen 650 MG Supp RECTAL PRN (21:41)
[2018-11-19] MEDS: FLUoxetine 10 MG Cap PO SCH (22:36)
[2018-11-19] MEDS: Latanoprost 0.005% Ophth Soln 2.5 ML Bottle EYEBOTH SCH (22:36)
[2018-11-20] MEDS: Morphine PF 30 MG/30 ML PCA Vial IV SCH (04:16)
[2018-11-20] MEDS ORDERED: Ondansetron 4 MG/2 ML SDV ONE (09:16)
[2018-11-20] MEDS: Ondansetron 4 MG/2 ML SDV IVPUSH PRN (09:22)
[2018-11-20] MEDS: Omeprazole 40 MG Cap.CR PO SCH (09:24)
[2018-11-20] MEDS: Docusate Sodium 100 MG Cap PO SCH (09:24)
[2018-11-20] MEDS: Hydrochlorothiazide 12.5 MG Cap PO SCH (09:24)
[2018-11-20] MEDS: Metoprolol Tartrate 25 MG Tab PO SCH (09:25)
[2018-11-20] MEDS: Sennosides 8.6 MG Tab PO SCH (09:25)
[2018-11-20] MEDS: Lisinopril 20 MG Tab PO SCH (09:25)
[2018-11-20] MEDS: Acetaminophen 500 MG Tab PO SCH (09:25)
[2018-11-20] MEDS: Cholecalciferol (Vitamin D3) 2,000 Unit Cap PO SCH (09:25)
--- NOTE | 2018-11-24 16:16 | PCM.SN ---
- Free Text/Narrative Note: Discharge Summary 11/20/18 Patient was discharged from acute care status to Comfort Care/Swing Bed today.
== END 2018-11-20 11:51 | disposition swing bed (61) | DRG 948 ==
LOC: LB.ED 12:07 → LB.MS 12:31
PROVIDERS: ADMIT Family Medicine; ATTEND Family Medicine
DX: G89.3 Neoplasm related pain (acute) (chronic) (principal); C79.51 Secondary malignant neoplasm of bone; C78.00 Secondary malignant neoplasm of unspecified lung; C79.89 Secondary malignant neoplasm of other specified sites; Z51.5 Encounter for palliative care; K59.00 Constipation, unspecified; I10 Essential (primary) hypertension; R47.1 Dysarthria and anarthria; H40.9 Unspecified glaucoma; R32 Unspecified urinary incontinence; M54.9 Dorsalgia, unspecified; G89.29 Other chronic pain; M19.90 Unspecified osteoarthritis, unspecified site; Z86.73 Personal history of transient ischemic attack (TIA), and cerebral infarction without residual deficits; Z96.651 Presence of right artificial knee joint; Z96.612 Presence of left artificial shoulder joint; Z85.828 Personal history of other malignant neoplasm of skin; H54.7 Unspecified visual loss; H91.90 Unspecified hearing loss, unspecified ear
CPT/HCPCS: 99284; J2270; 36415; 51702; 80053; 85025; A9270-GY; J2274; J2405; J7030

== ENCOUNTER 2018-11-20 08:36 | Inpatient (IN) | payer MEDICARE, BC ==
[2018-11-20] MEDS ORDERED: Sodium Chloride 0.9% 10 ML Syringe FLUSH PRN (11:17)
[2018-11-20] MEDS: Sodium Chloride 0.9% 1,000 ML IV SCH (16:03)
--- NOTE | 2018-11-20 22:34 | PCM.SN ---
- Free Text/Narrative Note: Family members report cessation of breathing just prior to 2220; no cardiac activity noted via auscultation. Time of : 2220
== END 2018-11-21 00:18 | disposition expired | DRG 845 ==
LOC: LB.MS 11:17
PROVIDERS: ADMIT Nurse Practitioner; ATTEND Nurse Practitioner
DX: C79.9 Secondary malignant neoplasm of unspecified site (principal); G89.3 Neoplasm related pain (acute) (chronic); Z51.5 Encounter for palliative care; Z79.82 Long term (current) use of aspirin
CPT/HCPCS: J7030